=== PATIENT | female | born 1945 | race African-American/Black ===

== ENCOUNTER 2017-06-24 14:54 | Emergency (ER) | payer MEDICARE, MEDICAID ==
[2017-06-24 15:24] LABS: Hemoglobin 12.8 g/dL (12.0-16.0); Mean Corpuscular HGB CONC 32.7 g/dL (32.0-36.0); Mean Corpuscular Hemoglobin 31.3 pg (27.0-31.0); Mean Corpuscular Volume 95.6 fl (81.0-99.0); Mean Platelet Volume 7.5 fL (7.4-10.4); Platelet Count 254 thou/uL (130-400); RBC Distribution Width 14.7 % (11.5-14.5); Red Blood Cell (RBC) Count 4.09 mill/uL (4.20-5.40); White Blood Cell (WBC) Count 6.3 thou/uL (4.8-10.8)
--- NOTE | 2017-06-24 15:29 | RAD ---
CHEST 1 VIEW: Date: 06/24/17 HISTORY: 72-year-old female with chest pain. COMPARISON: 01/27/15. FINDINGS: Monitor leads overlie the chest. Small bilateral cervical ribs. Atherosclerosis of aorta with ectasia . Mild hyperinflation. IMPRESSION: Postop midline sternotomy. Hyperinflation changes bilaterally. Stable chronic lung changes. Atheroscl erosis of aorta with ectasia. POS: [facility]
[2017-06-24 15:45] LABS: ALT (SGPT) Less than 7 U/L (8-55); AST (SGOT) 10 U/L (5-34); Albumin 3.8 g/dL (3.4-4.8); Alkaline Phosphatase 99 U/L (40-150); Anion Gap 13 mmol/L (10-20); BUN (Urea Nitrogen) 18 mg/dL (9.8-20.1); Bilirubin, Total 0.3 mg/dL (0.2-1.2); CK (CPK) 76 U/L (29-168); Calc. Creatinine Clearance 0 mL/min (70-130); Calcium 9.4 mg/dL (7.8-10.44); Carbon Dioxide 24 mmol/L (23-31); Chloride 104 mmol/L (98-107); Estimated GFR-MDRD 84; Globulin 3.2 g/dL (2.4-3.5); Glucose 114 mg/dL (83-110); Potassium 3.4 mmol/L (3.5-5.1); Sodium 138 mmol/L (136-145)
[2017-06-24 15:51] LABS: CKMB 0.5 ng/mL (0-6.6); Troponin I Less than 0.010 ng/mL (< 0.028)
[2017-06-24 15:58] LABS: Anisocytosis SLIGHT = 6-15 cells (100X) (0-5/hpf); Lymphocytes 9 % (21-51); MDiff Complete? YES; Monocytes 3 % (0-10); Neutrophil 88 % (42-75); PLT Morphology Comment Appears Adequate
[2017-06-24 16:01] LABS: PTT 27.1 SEC (22.9-36.1); Prothrombin Time 13.3 SEC (12.0-14.7)
[2017-06-24] MEDS ORDERED: Nitroglycerin 2% Ointment 1 INCH/1 GM Packet ONE (16:02)
[2017-06-24] MEDS ORDERED: cloNIDine 0.1 MG TAB ONE (18:10)
[2017-06-24 19:10] LABS: Bilirubin Negative (Negative); Blood, Urine Moderate (Negative); Clarity CLEAR (Clear); Glucose, Urine (Dipstick) Negative (Negative); Leukocyte Small (Negative); Nitrite Negative (Negative); Protein, Urine (Dipstick) Trace mg/dL (Neg-Trace); Specific Gravity, Urine 1.012 (1.002-1.036); Urobilinogen 0.2 mg/dL (0.2-1.0); pH, Urine 6.5 (5.0-9.0)
[2017-06-24 19:12] LABS: Bacteria/HPF Rare-Few HPF (None Seen); Hyaline Casts/LPF 0-3 HYALINE CAST LPF (0-3 Hyaline); Pathc Cast-AUWi Flag 0.27 (0-2.49); RBC/HPF 21-50 HPF (0-3); Squamous Epithelial 0-3 HPF (0-3); WBC/HPF 21-50 HPF (0-3)
--- NOTE | 2017-07-26 15:56 | EKG ---
Test Reason : Blood Pressure : / mmHG Vent. Rate : 075 BPM Atrial Rate : 075 BPM P-R Int : 116 ms QRS Dur : 098 ms QT Int : 406 ms P-R-T Axes : 017 024 121 degrees QTc Int : 453 ms Sinus rhythm with Premature atrial complexes in a pattern of bigeminy Abnormal ECG Confirmed by SAMMIE JOSEPH, HYACINTH ([id number]), image editor NO TALBOT ([id number]) on 07/26/2017 3:55:42 PM Referred By: Confirmed By:HYACINTH COCHRAN MD
== END 2017-06-24 20:14 | disposition home or self-care (01) ==
LOC: ERS 14:54
DX: R07.89 Other chest pain (principal); I11.0 Hypertensive heart disease with heart failure; I50.9 Heart failure, unspecified; E78.5 Hyperlipidemia, unspecified; J45.909 Unspecified asthma, uncomplicated; F31.9 Bipolar disorder, unspecified; F41.9 Anxiety disorder, unspecified; F20.9 Schizophrenia, unspecified; F17.210 Nicotine dependence, cigarettes, uncomplicated; Z86.73 Personal history of transient ischemic attack (TIA), and cerebral infarction without residual deficits; Z71.6 Tobacco abuse counseling
CPT/HCPCS: 36415; 71045; 80053; 81003; 81015; 82553; 84484; 85025; 85610; 85730; 93005; 94760; 99406

== ENCOUNTER 2017-07-14 13:27 | Outpatient (CLI) | payer MEDICARE, MEDICAID | END 2017-07-14 13:28 | disposition home or self-care (01) | LOC: BICULT 13:27 | PROVIDERS: ATTEND Family Medicine | DX: R94.6 Abnormal results of thyroid function studies (principal); E04.2 Nontoxic multinodular goiter | CPT/HCPCS: 76536 ==

== ENCOUNTER 2017-07-25 13:54 | Outpatient (CLI) | payer MEDICARE, OTHER | END 2017-07-25 13:55 | disposition home or self-care (01) | LOC: BICMAMMO 13:54 | PROVIDERS: ATTEND Family Medicine | DX: Z80.3 Family history of malignant neoplasm of breast; Z12.31 Encounter for screening mammogram for malignant neoplasm of breast | CPT/HCPCS: 77063; 77067 ==

== ENCOUNTER 2017-08-22 06:48 | Outpatient (CLI) | payer MEDICARE, MEDICAID ==
--- NOTE | 2017-08-22 10:23 | ULT ---
PELVIC ULTRASOUND: HISTORY: Weight loss. Blood in stool and urine. Constipation. COMPARISON: None. FINDINGS: Normal reproductive structures are not appreciated in the pelvis, which is compatible with the patien t's history of a complete hysterectomy. No obvious masses or fluid. The urinary bladder is unremark able. IMPRESSION: Unremarkable pelvic ultrasound. POS: [facility]
--- NOTE | 2017-08-22 10:23 | ULT ---
ABDOMEN ULTRASOUND COMPLETE: HISTORY: RIGHT lower quadrant pain. COMPARISON: 06/02/15. TECHNIQUE: Utilizing a multihertz transducer, sonographic imaging of the abdomen is performed in the longitudina l and transverse plane. FINDINGS: Limited evaluation of the pancreas. Increased echogenicity of the liver which may be due to hepatic steatosis or hepatocellular disease. Limited evaluation for hepatic masses or intrahepatic biliary dilatation. The right hepatic lobe me asures 11.9 cm. There is atherosclerosis of the abdominal aorta. Suboptimal evaluation of the IVC. The spleen is ob scured. Bilaterally, no hydronephrosis. The left kidney measures 8.8 x 5.4 x 4.1 cm. The right kidney measu res 3.7 x 3.4 x 9.4 cm. There is a hypoechoic focus which may represent a small possibly complex cys t measuring 1 cm. Evaluation is limited. Contracted gallbladder, limiting evaluation. Grossly, no evidence of cholecystitis. The common bile duct diameter is 0.5 cm. IMPRESSION: Limited evaluation. No hydronephrosis. No definite evidence of cholecystitis. Additional imaging i f clinically warranted. POS: [facility]
== END 2017-08-22 06:49 | disposition home or self-care (01) ==
LOC: SCSULT 06:48
PROVIDERS: ATTEND Family Medicine
DX: R10.31 Right lower quadrant pain (principal)
CPT/HCPCS: 76700; 76856

== ENCOUNTER 2017-08-22 06:50 | Outpatient (CLI) | payer MEDICARE, MEDICAID ==
--- NOTE | 2017-08-22 12:29 | MRI ---
MRI OF BRAIN NONCONTRAST: COMPARISON: 01/26/16 MRI of brain. INDICATION: Upper and lower extremity weakness, right-sided. FINDINGS: There is mild to moderate chronic microvascular ischemic disease involving the cerebral white matter as well as the sarkis. No abnormal ventriculomegaly or evidence of midline shift. There are no signif icant areas of parenchymal hemorrhagic susceptibility. Minimal linear colon artifact of the posterio r left lentiform nucleus may relate to a slight degree of hemosiderin deposition related to remote la cunar infarction. There is no acute territorial infarction. IMPRESSION: 1. No acute intracranial abnormality. 2. Chronic ischemic disease. 3. No intracranial mass effect. POS: [facility]
--- NOTE | 2017-08-22 12:47 | MRI ---
CERVICAL SPINE MRI NONCONTRAST: CLINICAL HISTORY: Weakness of upper and lower extremity, right side. FINDINGS: There is focal reversal of the cervical lordosis centered at the C3-4 level. No significant abnormal ity of the posterior fossa. There is no acute marrow edema. No significant subluxation. No high-gr krunal central canal stenosis at the C1-2 level. There is degenerative hypertrophy of the C1-2 articula tion. C2-3: Left asymmetric disk-osteophyte complex. No high-grade central canal or foraminal stenosis. C3-4: There is broad-based disk-osteophyte with effacement of ventral thecal sac. There is mild ligia tral canal stenosis. Mild to moderate right and mild left neural foraminal narrowing. C4-5: Disk-osteophyte complex results in mild narrowing of the central canal, moderate right and mil d to moderate neural foraminal narrowing. C5-6: There is mild narrowing of the central canal as well as mild bilateral neural foraminal narrow ing. C6-7: Mild narrowing of the central canal on the basis of a broad-based disk-osteophyte. Mild right neural foraminal narrowing. No high-grade left foraminal narrowing. C7-T1: No high-grade central canal or neural foraminal stenosis. There is no significant intrinsic cord signal abnormality or expansile cord lesion. IMPRESSION: There is multilevel degenerative change throughout the cervical spine as outlined above. POS: [facility]
== END 2017-08-22 06:51 | disposition home or self-care (01) ==
LOC: SCSMRI 06:50
PROVIDERS: ATTEND Student in an Organized Health Care Education/Training Program
DX: M54.2 Cervicalgia (principal); M62.81 Muscle weakness (generalized); M79.601 Pain in right arm; M79.604 Pain in right leg; R20.2 Paresthesia of skin; M47.892 Other spondylosis, cervical region; I67.82 Cerebral ischemia
CPT/HCPCS: 70551; 72141; 76700; 76856

== ENCOUNTER 2017-08-28 08:58 | Outpatient (CLI) | payer MEDICARE, MEDICAID ==
[2017-08-28] MEDS ORDERED: ISOVUE-370 76%-LOCM 1 ML ONE (13:51)
== END 2017-08-28 08:59 | disposition home or self-care (01) ==
LOC: BICCT 08:58
PROVIDERS: ATTEND Family Medicine
DX: N28.9 Disorder of kidney and ureter, unspecified (principal); N32.89 Other specified disorders of bladder; R93.5 Abnormal findings on diagnostic imaging of other abdominal regions, including retroperitoneum; N20.0 Calculus of kidney; N28.1 Cyst of kidney, acquired; I71.4 Abdominal aortic aneurysm, without rupture; I71.2 Thoracic aortic aneurysm, without rupture; I74.09 Other arterial embolism and thrombosis of abdominal aorta
CPT/HCPCS: 74178

== ENCOUNTER → 2017-09-12 | Day surgery (SDC) | payer MEDICARE, MEDICAID ==
[2017-09-11 10:36] VITALS: BMI 18.6
[~2017-09-12] MED LIST: Lidocaine 1% PF 5 ML VIAL ONE; Prevnar 13-Val Conj/PF 0.5 ML SYRINGE IM ONE
[2017-09-12 13:05] VITALS: TEMP 97.7
--- NOTE | 2017-09-12 14:03 | ULT ---
SONOGRAPHIC GUIDED FNA LEFT THYROID LOBE MASS: History: Left thyroid mass. FINDINGS: After explaining the procedure and answering all questions, the dominant mass at the inferior pole le ft thyroid lobe was visualized. Sterile technique, buffered local anesthesia, sonographic guidance, a nd a medial approach were used to carefully advance a 25 gauge needle into the heterogeneous mass. Po sition was confirmed sonographically. A total of 4 FNA specimens were obtained and submitted to pathology for evaluation. The patient coy ated the procedure well and was dismissed in good condition. IMPRESSION: Technically successful FNA left thyroid lobe mass. Pathology is pending. POS: [facility]
== END ==
LOC: ULT 11:08
PROVIDERS: ATTEND Internal Medicine Endocrinology, Diabetes & Metabolism
PROC: 0G9G3ZX Drainage of Left Thyroid Gland Lobe, Percutaneous Approach, Diagnostic (ICD-10-PCS; principal; 2017-09-12)
DX: E04.1 Nontoxic single thyroid nodule (principal); Z88.5 Allergy status to narcotic agent; Z88.8 Allergy status to other drugs, medicaments and biological substances
CPT/HCPCS: 10022; 76942; 88173; J2001

== ENCOUNTER 2017-10-15 09:36 | Observation (INO) | payer MEDICARE, MEDICAID ==
[2017-10-15 11:19] LABS: Hemoglobin 12.4 g/dL (12.0-16.0); Mean Corpuscular HGB CONC 32.5 g/dL (32.0-36.0); Mean Corpuscular Hemoglobin 29.6 pg (27.0-31.0); Mean Platelet Volume 7.2 fL (7.4-10.4); Platelet Count 296 thou/uL (130-400); RBC Distribution Width 13.3 % (11.5-14.5); Red Blood Cell (RBC) Count 4.18 mill/uL (4.20-5.40); White Blood Cell (WBC) Count 4.7 thou/uL (4.8-10.8)
[2017-10-15 11:23] LABS: INR-International Normal Ratio 0.9; PTT 25.8 SEC (22.9-36.1); Prothrombin Time 12.6 SEC (12.0-14.7)
[2017-10-15 11:39] LABS: ALT (SGPT) 7 U/L (8-55); AST (SGOT) 24 U/L (5-34); Albumin 4.4 g/dL (3.4-4.8); Alkaline Phosphatase 91 U/L (40-150); Anion Gap 15 mmol/L (10-20); BUN (Urea Nitrogen) 16 mg/dL (9.8-20.1); Bilirubin, Total 0.7 mg/dL (0.2-1.2); CK (CPK) 114 U/L (29-168); Calc. Creatinine Clearance 0 mL/min (70-130); Carbon Dioxide 28 mmol/L (23-31); Chloride 98 mmol/L (98-107); Estimated GFR-MDRD 71; Globulin 3.6 g/dL (2.4-3.5); Glucose 135 mg/dL (83-110); Potassium 4.4 mmol/L (3.5-5.1); Sodium 137 mmol/L (136-145)
[2017-10-15 11:43] LABS: CKMB 0.7 ng/mL (0-6.6); Troponin I 0.011 ng/mL (< 0.028)
[2017-10-15 12:05] LABS: Band 6 % (5-11); Eosinophils 1 % (0-10); Lymphocytes 21 % (21-51); MDiff Complete? YES; Monocytes 6 % (0-10); Neutrophil 63 % (42-75); RBC Morphology Normal; Reactive Lymphocytes 1 % (0-10)
[2017-10-15] MEDS ORDERED: Acetaminophen 325 MG TAB PO PRN (12:25)
[2017-10-15] MEDS ORDERED: Bisacodyl 5 MG TAB PO PRN (12:25)
[2017-10-15] MEDS ORDERED: Ondansetron HCl/PF 4 MG/2 ML Vial IVP PRN (12:25)
[2017-10-15] MEDS ORDERED: Senokot 8.6 MG TAB PO PRN (12:25)
--- NOTE | 2017-10-15 12:52 | HP ---
CHIEF COMPLAINT: Nausea, vomiting for the past 4 days. HISTORY OF PRESENT ILLNESS: This is a 72-year-old female with a past medical history significant for carotid stenosis, hypertension as well as a previous TIA who presents to the hospital due to nausea, vomiting that has been going on for the past 4 days. The patient states that these symptoms have pe rsisted for the past 4 days without any improvement. She tried to see if it would go away at home, b ut it did not, so she decided to come to the hospital for further evaluation and management. She com plains of associated diffuse abdominal pain as well as dark colored stools and hematemesis. Because of the hematemesis and dark colored stool, that prompted her to come in more than anything else. She denies any fevers, chills, cough, dizziness, lightheadedness, or syncopal episode. She also denies any diarrhea or hematochezia. PAST MEDICAL HISTORY: Please see HPI. SOCIAL HISTORY: The patient denies any tobacco, recreational drug use or alcohol use. FAMILY HISTORY: Family history was significant for cardiovascular disease as well as hypertension. PAST SURGICAL HISTORY: Significant for CABG, hysterectomy as well as tonsillectomy. REVIEW OF SYSTEMS: A 14-point review of systems was reviewed and was negative other than what was me ntioned in the HPI. PHYSICAL EXAMINATION: VITAL SIGNS: Blood pressure was 137/85, pulse was 105, respiratory rate was 16, temperature was 98.4 . The patient was satting 98% oxygen on room air. GENERAL: The patient was in no apparent distress, was resting comfortably in the bed, alert, awake, oriented x3. HEAD: Head is normocephalic, atraumatic. EYES: Pupils are round and reactive to light. Extraocular muscles were intact. Conjunctivae are pi nk. Sclerae was nonicteric. MOUTH: Oral mucosa is pink, slightly dry. NECK: Soft, supple, no JVD, no carotid bruits, no lymphadenopathy. CARDIOVASCULAR: Regular rhythm, slightly tachycardic. S1 and S2 sounds are heard. I could not appr eciate S3 or S4. RESPIRATORY: Clear lungs bilaterally. No added sounds. ABDOMEN: Positive bowel sounds, soft, mild tenderness diffusely with no guarding or rebound EXTREMITIES: Lower extremity pulses were 2+ both dorsalis and radial pulse. No pitting edema could be appreciated. LABORATORY DATA: White blood cell count was 4.7, hemoglobin was 12.4, hematocrit was 30.1, platelet count was 296. Sodium was 137, potassium 4.4, chloride 98, bicarbonate 28, BUN was 16, creatinine wa s 0.94, glucose is 135. ASSESSMENT AND PLAN: 1. Nausea and vomiting with apparent melena and hematemesis. 2. Coronary artery disease status post coronary artery bypass graft. 3. Hypertension. 4. Carotid stenosis. 5. Hypertension. 6. We will admit to observation. I will consult GI to evaluate to see if patient needs an EGD due to her symptoms as she is complainin g of at this time. A Hemoccult was done in the ER which was negative. Unclear if patient is actuall y having any GI bleeding at this time; however, will evaluate accordingly and adjust plan based off o f evaluation with GI. We will place the patient on Protonix as well. Supportive care and management . Pain management control and monitor accordingly.
[2017-10-15 13:45] VITALS: BMI 18.1
[2017-10-15] MEDS ORDERED: Metoprolol Tartrate 25 MG TAB PO SCH (14:00)
[2017-10-15] MEDS ORDERED: Amlodipine 5 MG TAB PO SCH (14:00)
[2017-10-15] MEDS ORDERED: cloNIDine 0.1 MG TAB PO SCH (14:00)
[2017-10-15] MEDS: Sodium Chloride 0.9% 1,000 ML IV SCH (14:02)
[2017-10-15] MEDS ORDERED: Pantoprazole 40 MG VIAL IVP SCH ×2 (21:00)
[2017-10-16] MEDS: Sodium Chloride 0.9% 1,000 ML IV SCH (02:25)
[2017-10-16 04:50] LABS: #Eosinphils 0.1 thou/uL (0.0-0.7); #Lymphocytes 1.4 thou/uL (1.20-3.40); #Monocytes 0.3 thou/uL (0.11-0.59); %Eosinophils 2.6 % (0.0-10.0); %Lymphocytes 36.1 % (21.0-51.0); %Monocytes 8.1 % (0.0-10.0); %Neutrophils 52.2 % (42.0-75.0); Hemoglobin 10.6 g/dL (12.0-16.0); Mean Corpuscular HGB CONC 33.3 g/dL (32.0-36.0); Mean Corpuscular Volume 90.2 fl (81.0-99.0); Platelet Count 227 thou/uL (130-400); RBC Distribution Width 13.3 % (11.5-14.5); Red Blood Cell (RBC) Count 3.53 mill/uL (4.20-5.40); White Blood Cell (WBC) Count 3.7 thou/uL (4.8-10.8)
[2017-10-16 05:01] LABS: Anion Gap 10 mmol/L (10-20); BUN (Urea Nitrogen) 16 mg/dL (9.8-20.1); Calc. Creatinine Clearance 41 mL/min (70-130); Calcium 8.8 mg/dL (7.8-10.44); Carbon Dioxide 26 mmol/L (23-31); Chloride 106 mmol/L (98-107); Estimated GFR-MDRD 87; Glucose 88 mg/dL (83-110); Potassium 3.5 mmol/L (3.5-5.1); Sodium 138 mmol/L (136-145)
--- NOTE | 2017-10-16 09:08 | CON ---
DATE OF CONSULTATION: 10/15/2017 REASON FOR CONSULTATION: Possible history of vomiting and possible coffee-ground emesis. HISTORY OF PRESENT ILLNESS: Ms. Barrera is a pleasant 72-year-old female who was admitted to the hosp ital today after she presented to the emergency room with complaints of nausea, vomiting, and loose s tools for about a month. She has had minimal appetite and often when she eats, things just come back up. She reports her stools on and off has been black and intermittently she will vomit up or bring up material from mouth that is black as tar. She also has had some vaginal bleeding. She has been d iagnosed with a bladder tumor on CAT scan, apparently scheduled for some type of surgery on 8. She notes that she has no dysphagia or odynophagia. She also estimates she has lost about 20 pham nds in the past couple of months. She denies any dysphagia or odynophagia, takes aspirin, but she de nies taking other NSAIDs. REVIEW OF SYSTEMS: She does have some occasional chest pain for which she will take nitroglycerin. She has no headache, shortness of breath, abdominal pain, rectal pain or pelvic pain. She denies santana quency, urgency or dysuria. PAST MEDICAL HISTORY: Prior CVA in 2017 with some slight right-sided defects, past history of CHF, h yperlipidemia, coronary artery disease, bypass grafting in [place] many years ago. She denies any history of ulcers in the past, diagnosed with atrial fibrillation in the past, bladder cancer diagnos ed this year, diabetes, and COPD. PAST SURGICAL HISTORY: Coronary artery bypass grafting in 2005 in [place], hysterectomy, tonsillec apu. She denies any prior colonoscopies. Carotid endarterectomy secondary to recurrent TIAs and ca rotid stenosis. SOCIAL HISTORY: Lives with her here. She drinks alcohol fairly regularly. She smokes half a pack of cigarettes a day. MEDICATIONS: Amlodipine, aspirin, famotidine, metoprolol, nitroglycerin, Combivent, Plavix, Crestor, iron, Tylenol with Codeine, and potassium. PRESENT MEDICATIONS HERE: Tylenol, Zofran, Catapres, Lopressor, Protonix 40 IV q.12 hours, Senna, an d normal saline 75. PHYSICAL EXAMINATION: GENERAL: Patient is resting comfortably in bed. She is in no distress. VITAL SIGNS: Pulse 66-108, temperature 97, respirations 18, blood pressure 118/97. LUNGS: Clear. HEART: Regular rate and rhythm without clicks or murmurs. ABDOMEN: Soft, nontender, without hepatomegaly. RECTAL: Reveals nothing in her vault. LABORATORY DATA: White count 4.7, hemoglobin 12.4, platelet count 296. INR 0.9. Sodium 137, potass ium 4.4, BUN and creatinine are 16 and 0.9, bilirubin is 0.7, AST and ALT are 24 and 7, alkaline phos phatase 91, albumin 4.4. ASSESSMENT: This is a 72-year-old female who has been diagnosed with bladder cancer, has had quite a bit of blood in her urine at times, describes some vaginal bleeding at times, apparently scheduled f or bladder surgery on 10/20/2017. She is admitted now with complaints of nausea, anorexia, weight lo ss, vomiting or bringing up black tarry material at times. She also reports black tarry stools at ti mes. She is on iron however. Stool occult blood in the emergency room today was negative. Presentl y, she has been started on PPI. Differential diagnoses include nausea and vomiting related to her malignancy. 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 Brain MRI in 08/2017, chronic ischemia. Recently had an ultrasound-guided biopsy of her thyroid too and ap parently was benign. PLAN: IV, PPIs, EGD tomorrow.
--- NOTE | 2017-10-16 13:14 | OP ---
DATE OF PROCEDURE: 10/16/2017 PROCEDURE: Esophagogastroduodenoscopy with biopsy. INDICATION FOR PROCEDURE: Hematemesis, melena. DESCRIPTION OF PROCEDURE: After the risks and benefits of this procedure were explained to the patie nt and the patient's surrogate including risks of bleeding, infection, perforation, reaction to anest hesia and/or pain, informed consent was obtained. The patient was then taken to the endoscopy suite where deep sedation was administered via propofol and anesthesia support. Once adequate sedation was achieved, the standard gastroscope was then introduced into the mouth with intubation of the esophag us, stomach and proximal small intestine with the findings listed below. The patient tolerated the p rocedure well with no immediate perioperative complications. FINDINGS: Esophagus: Normal appearing mucosa was seen in the proximal and mid esophagus. A partial fibrous ri ng was seen at the GE junction at approximately 38 cm past the incisors that was easily traversed wit h the standard gastroscope. This partial ring was not intervened upon given lack of symptoms of dysp hagia. Otherwise, there was no evidence of erosions, ulcerations, mass, lesions, or active/recent bl eeding. Stomach: Normal-appearing mucosa was seen in the gastric cardia, fundus, body, greater curvature, an trum and incisura. There was no evidence of erosions, ulcerations, mass, lesions or active/recent bl eeding. Duodenum: Upon entry into the duodenal bulb, there were 5-6 duodenal nodules with surrounding erythe ma measuring approximately 3-7 mm in size. They did not have any associated erosions or ulcerations or active/recent bleeding seen in this portion of the examination. Multiple biopsies were taken of t hese nodules for evaluation and placed in specimen jar for pathology review. Otherwise, the second p ortion of the duodenum was normal without any evidence of erosions, ulcerations, or active/recent ble eding. IMPRESSION: 1. Mild nodular duodenitis, status post biopsies. 2. Nonobstructive ring seen at approximately 39 cm easily traversed with the standard gastroscope, n ot intervened upon during this examination. RECOMMENDATIONS: 1. Follow up with primary inpatient team. 2. Continue to monitor clinically for signs of active gastrointestinal bleeding. 3. We will continue to trend H&H and transfuse as necessary to maintain an H&H of 7/21. 4. We would pursue other non-GI sources of anemia. 5. We will follow up on the biopsy results with further management by those results. 6. We would continue pantoprazole 40 mg twice daily for the next 72 hours, then decrease to 40 mg da jerome. We will continue to follow. Please call with any questions.
[2017-10-16 13:36] VITALS: TEMP 98.5
[2017-10-16 14:09] VITALS: BP 174/85
[2017-10-16] MEDS ORDERED: PROPOFOL 200 MG/20 ML VIAL ONE (14:54)
--- NOTE | 2017-10-16 15:05 | DIS ---
DATE OF ADMISSION: 10/15/2017 DATE OF DISCHARGE: 10/16/2017 PRIMARY CARE PHYSICIAN: [facility], but she could recall the name. UROLOGIST: She believes Dr. Johnston. GASTROENTEROLOGY: Dr. Camacho and Dr. Casas. DISCHARGE DIAGNOSES: 1. Nodular duodenitis, no active bleeding. 2. Chronic anemia, likely chronic iron deficiency from a genitourinary source. 3. Bladder tumor. 4. Nausea and vomiting on admission, now resolved. 5. Black stools, likely iron laden. 6. Carotid stenosis. 7. Hypertension, essential. 8. History of transient ischemic attacks. CONSULTATIONS: Gastroenterology, Dr. Angelo Camacho, 10/15/2017. PROCEDURE: EGD, 10/16/2017, by Dr. Silvino Casas showing mild nodular duodenitis, status post biopsie s and nonobstructing ring at approximately 39 cm easily traversed with a standard gastroscope. HISTORY AND PHYSICAL: Ms. Barrera is a 72-year-old female who presented to the emerg ency department the day of admission complaining of a black vomitus and black stools. Workup in the ER showed normal hemoglobin of 12.4, platelet count 296. We were called for admission. HOSPITAL COURSE: The patient was seen by Dr. Roberts and placed in observation. Hemoccult in the ER was negative, GI was consulted and they did a Hemoccult also that was negative. There is no evidence of GI bleeding and brown stool. The patient was watched overnight and today underwent EGD. It show ed some nodular duodenitis, but no active bleeding. Dr. Casas recommended b.i.d. PPI for 3 days, the n daily. He noted no GI source of bleeding. Her hemoglobin after rehydration was 10.6 remained stab le. She had no further nausea, vomiting, black stools or hematemesis and was stable for discharge outpatient followup. DISCHARGE CONDITION: Stable. DISPOSITION: Will be discharged home via private vehicle. DISCHARGE ACTIVITY: As tolerated. DISCHARGE DIET: Heart healthy recommended. FOLLOWUP APPOINTMENTS: 1. Primary care physician within a week. 2. Urology or ICING MACHINE OPERATOR as previously scheduled. 3. Dr. Casas in 2 weeks.
== END 2017-10-16 15:16 | disposition home or self-care (01) ==
LOC: ERS 09:36 → 2SW 12:51
PROVIDERS: ADMIT Internal Medicine; ATTEND Internal Medicine
PROC: 0DB98ZX Excision of Duodenum, Via Natural or Artificial Opening Endoscopic, Diagnostic (ICD-10-PCS; principal; 2017-10-15)
DX: K31.89 Other diseases of stomach and duodenum (principal); K29.80 Duodenitis without bleeding; C67.9 Malignant neoplasm of bladder, unspecified; K92.0 Hematemesis; K92.1 Melena; K22.2 Esophageal obstruction; E78.5 Hyperlipidemia, unspecified; I25.10 Atherosclerotic heart disease of native coronary artery without angina pectoris; I48.91 Unspecified atrial fibrillation; J44.9 Chronic obstructive pulmonary disease, unspecified; I50.9 Heart failure, unspecified; I65.29 Occlusion and stenosis of unspecified carotid artery; D53.9 Nutritional anemia, unspecified; F17.210 Nicotine dependence, cigarettes, uncomplicated; Z88.5 Allergy status to narcotic agent; Z88.8 Allergy status to other drugs, medicaments and biological substances; Z86.73 Personal history of transient ischemic attack (TIA), and cerebral infarction without residual deficits; Z79.82 Long term (current) use of aspirin; Z79.899 Other long term (current) drug therapy; Z95.1 Presence of aortocoronary bypass graft; Z79.02 Long term (current) use of antithrombotics/antiplatelets
CPT/HCPCS: 43239; 80048; 80053; 82274; 82550; 82553; 84484; 85025 ×2; 85610; 85730; 86850; 86900; 86901; 88305; 93005; 96361 ×2; 96374; 96376; 99285; G0378; 36415; A4216; C9113; J2704

== ENCOUNTER 2017-10-24 13:53 | Outpatient (CLI) | payer MEDICARE, MEDICAID ==
[2017-10-24 14:41] LABS: Bilirubin Negative (Negative); Blood, Urine Large (Negative); Clarity CLOUDY (Clear); Glucose, Urine (Dipstick) Negative (Negative); Leukocyte Small (Negative); Nitrite Negative (Negative); Protein, Urine (Dipstick) 300 mg/dL (Neg-Trace); Specific Gravity, Urine 1.017 (1.002-1.036); pH, Urine 6.5 (5.0-9.0)
[2017-10-24 14:44] LABS: Bacteria/HPF 1+ HPF (None Seen); Hyaline Casts/LPF 0-3 HYALINE CAST LPF (0-3 Hyaline); Squamous Epithelial 0-3 HPF (0-3); WBC/HPF 0-3 HPF (0-3)
[2017-10-24 14:45] LABS: Renal Epithelial None Seen HPF (0-3); Transitional Epithelial NONE SEEN HPF (0-3)
== END 2017-10-24 13:54 | disposition home or self-care (01) ==
LOC: LABBT 13:53
PROVIDERS: ATTEND Urology
DX: Z01.812 Encounter for preprocedural laboratory examination (principal); C67.9 Malignant neoplasm of bladder, unspecified
CPT/HCPCS: 81001; 86850; 86900; 86901; 87086

== ENCOUNTER 2017-10-30 18:31 | Emergency (ER) | payer MEDICARE, MEDICAID ==
[2017-10-30] MEDS ORDERED: diphenhydrAMINE 50 MG/ML VIAL ONE (18:59)
[2017-10-30] MEDS ORDERED: Metoclopramide HCl 10 MG/2 ML VIAL ONE (18:59)
[2017-10-30 19:02] LABS: #Basophils 0.1 thou/uL (0.0-0.2); #Eosinphils 0.1 thou/uL (0.0-0.7); #Lymphocytes 2.5 thou/uL (1.20-3.40); #Monocytes 0.4 thou/uL (0.11-0.59); #Neutrophils 3.1 thou/uL (1.40-6.50); %Basophils 1.7 % (0.0-1.0); %Eosinophils 1.3 % (0.0-10.0); %Lymphocytes 40.3 % (21.0-51.0); %Monocytes 6.4 % (0.0-10.0); %Neutrophils 50.4 % (42.0-75.0); Mean Corpuscular HGB CONC 33.5 g/dL (32.0-36.0); Mean Corpuscular Volume 89.7 fl (81.0-99.0); Mean Platelet Volume 6.8 fL (7.4-10.4); Platelet Count 363 thou/uL (130-400); RBC Distribution Width 13.5 % (11.5-14.5); Red Blood Cell (RBC) Count 3.68 mill/uL (4.20-5.40); White Blood Cell (WBC) Count 6.2 thou/uL (4.8-10.8)
[2017-10-30 19:18] LABS: ALT (SGPT) 8 U/L (8-55); AST (SGOT) 23 U/L (5-34); Albumin 4.2 g/dL (3.4-4.8); Alcohol 257 mg/dL (Less than 10); Alkaline Phosphatase 74 U/L (40-150); Anion Gap 16 mmol/L (10-20); BUN (Urea Nitrogen) 25 mg/dL (9.8-20.1); Bilirubin, Total 0.2 mg/dL (0.2-1.2); Calc. Creatinine Clearance 0 mL/min (70-130); Calcium 9.2 mg/dL (7.8-10.44); Carbon Dioxide 25 mmol/L (23-31); Chloride 107 mmol/L (98-107); Estimated GFR-MDRD 61; Globulin 3.1 g/dL (2.4-3.5); Glucose 72 mg/dL (83-110); Protein, Total 7.3 g/dL (6.0-8.3); Sodium 144 mmol/L (136-145)
--- NOTE | 2017-10-30 19:57 | CT ---
CT HEAD WITHOUT CONTRAST: 10/30/17 Multiple axial tomograms obtained through the head without IV enhancement. INDICATIONS: Headache. Ventricles are of normal size and position. Mild to moderate chronic ischemic white matter changes wh ich were described on prior MRI exam from 08/22/17. No acute mass, hemorrhage or infarct identified. IMPRESSION: No acute findings. POS: [facility]
== END 2017-10-30 21:35 | disposition home or self-care (01) ==
LOC: ERS 18:31
DX: G44.209 Tension-type headache, unspecified, not intractable (principal); F10.129 Alcohol abuse with intoxication, unspecified; E78.5 Hyperlipidemia, unspecified; I10 Essential (primary) hypertension; I50.9 Heart failure, unspecified; J45.909 Unspecified asthma, uncomplicated; E11.9 Type 2 diabetes mellitus without complications; F31.9 Bipolar disorder, unspecified; F41.9 Anxiety disorder, unspecified; F17.210 Nicotine dependence, cigarettes, uncomplicated; Z79.82 Long term (current) use of aspirin; Z79.899 Other long term (current) drug therapy
CPT/HCPCS: 70450; 80053; 80307; 85025; 96365; 96366; 96375; J1200; J2765

== ENCOUNTER 2018-01-21 16:38 | Outpatient (CLI) | payer MEDICARE, MEDICAID ==
[2018-01-21 18:19] LABS: #Basophils 0.1 thou/uL (0.0-0.2); #Eosinphils 0.1 thou/uL (0.0-0.7); #Lymphocytes 2.4 thou/uL (1.20-3.40); #Monocytes 0.3 thou/uL (0.11-0.59); #Neutrophils 4.1 thou/uL (1.40-6.50); %Basophils 1.4 % (0.0-1.0); %Lymphocytes 33.8 % (21.0-51.0); %Monocytes 4.8 % (0.0-10.0); Hemoglobin 12.3 g/dL (12.0-16.0); Mean Corpuscular HGB CONC 32.5 g/dL (32.0-36.0); Mean Corpuscular Hemoglobin 29.6 pg (27.0-31.0); Mean Corpuscular Volume 90.9 fL (78.0-98.0); Mean Platelet Volume 7.8 fL (7.4-10.4); Platelet Count 293 thou/uL (130-400); RBC Distribution Width 13.4 % (11.5-14.5); Red Blood Cell (RBC) Count 4.14 mill/uL (4.20-5.40)
[2018-01-21 18:20] LABS: Bilirubin Negative (Negative); Blood, Urine Large (Negative); Clarity TURBID (Clear); Glucose, Urine (Dipstick) Negative (Negative); Leukocyte Moderate (Negative); Nitrite Positive (Negative); Protein, Urine (Dipstick) 300 mg/dL (Neg-Trace); Specific Gravity, Urine 1.016 (1.002-1.036); Urobilinogen 0.2 mg/dL (0.2-1.0)
[2018-01-21 18:25] LABS: Bacteria/HPF 2+ HPF (None Seen); Hyaline Casts/LPF 0-3 HYALINE CAST LPF (0-3 Hyaline); PTT 28.8 SEC (22.9-36.1); Pathc Cast-AUWi Flag 0.39 (0-2.49); Prothrombin Time 13.1 SEC (12.0-14.7); RBC/HPF GREATER THAN 50-TNTC HPF (0-3); Squamous Epithelial 0-3 HPF (0-3)
[2018-01-21 19:12] LABS: Anion Gap 16 mmol/L (10-20); BUN (Urea Nitrogen) 21 mg/dL (9.8-20.1); Calc. Creatinine Clearance 0 mL/min (70-130); Calcium 9.8 mg/dL (7.8-10.44); Carbon Dioxide 23 mmol/L (23-31); Chloride 105 mmol/L (98-107); Estimated GFR-MDRD 67; Glucose 133 mg/dL (83-110); Potassium 3.9 mmol/L (3.5-5.1); Sodium 140 mmol/L (136-145)
== END 2018-01-21 16:39 | disposition home or self-care (01) ==
LOC: LABBT 16:38
PROVIDERS: ATTEND Urology
DX: Z01.818 Encounter for other preprocedural examination (principal); C67.3 Malignant neoplasm of anterior wall of bladder
CPT/HCPCS: 80048; 81001; 85025; 85610; 85730; 87086; 93005; 93010

== ENCOUNTER 2018-01-29 09:56 | Inpatient (IN) | payer MEDICARE, MEDICAID ==
[2018-01-29] MEDS ORDERED: Labetalol HCl 100 MG/20 ML VIAL ONE (10:52)
[2018-01-29] MEDS ORDERED: PROPOFOL 200 MG/20 ML VIAL ONE (10:52)
[2018-01-29] MEDS ORDERED: Glycopyrrolate 0.2 MG/ML 5 ML SYRINGE ONE (10:52)
[2018-01-29] MEDS ORDERED: Dexamethasone 20 MG/5 ML VIAL ONE (10:52)
[2018-01-29] MEDS ORDERED: PHENYLEPHRINE-NS 100 MCG/ML 10 ML SYRINGE ONE (10:52)
[2018-01-29] MEDS ORDERED: Ondansetron HCl/PF 4 MG/2 ML Vial ONE (10:52)
[2018-01-29] MEDS ORDERED: Levofloxacin 500 mg/D5W 100 ml Premix Bag ONE (10:54)
[2018-01-29] MEDS ORDERED: Fentanyl 100 MCG/2 ML VIAL ONE ×2 (11:44→14:38)
[2018-01-29] MEDS ORDERED: Iothalamate Meglumine 60% 50 ML VIAL FS ONE (12:08)
[2018-01-29] MEDS ORDERED: Bisacodyl 10 MG SUPP PR PRN (13:48)
[2018-01-29] MEDS ORDERED: Morphine 4 MG/ML VIAL SLOW IVP PRN (13:48)
[2018-01-29] MEDS ORDERED: Acetaminophen 500 MG TAB PO PRN (13:48)
[2018-01-29] MEDS ORDERED: diphenhydrAMINE 25 MG CAP PO PRN (13:48)
[2018-01-29] MEDS ORDERED: Ondansetron HCl/PF 4 MG/2 ML Vial IVP PRN (13:48)
[2018-01-29] MEDS ORDERED: Hyoscyamine Sulfate SL 0.125 mg Tablet SL PRN (13:48)
[2018-01-29] MEDS ORDERED: hydrALAZINE 20 MG/ML VIAL SLOW IVP PRN (13:48)
[2018-01-29] MEDS ORDERED: Mag-Al 1200 mg/1200 mg/30 ML UDCUP PO PRN (13:48)
[2018-01-29] MEDS ORDERED: traMADol HCl 50 MG TAB PO PRN (13:51)
[2018-01-29] MEDS ORDERED: Nitroglycerin 0.4 MG TAB (25 Tab Bottle) SL PRN (13:51)
[2018-01-29 18:10] VITALS: BMI 19.8
--- NOTE | 2018-01-29 18:28 | OP ---
DATE OF PROCEDURE: 01/29/2018 SERVICE: Urology. SURGEON: David Johnston M.D. PREOPERATIVE DIAGNOSIS: Bladder cancer. POSTOPERATIVE DIAGNOSIS: Bladder cancer. PROCEDURE PERFORMED: Transurethral resection of bladder tumor greater than 5 cm. INDICATIONS FOR PROCEDURE: Ms. Barrera is a 73-year-old black female, who presented to me with gross hematuria, bladder pain and incontinence. She underwent cystoscopy, demonstrated multifocal diffuse tumors throughout her bladder. There is an extensive amount of tumor within her bladder and I told h er that more than one surgery may be required to clear this. Her surgery was delayed due to gastroin testinal bleed and cardiac complications that she has finally obtained clearance, is now coming in fo r surgery with all risks and benefits discussed. DESCRIPTION OF PROCEDURE: After identification of armband and verification of consent, the patient w as brought back to the operating room and she was given general anesthesia with endotracheal intubati on and paralysis. She was then placed in dorsal lithotomy position and prepped and draped in usual s terile fashion. After appropriate timeout, a lubricated 26-Serbian resectoscope sheath was placed wit h obturator into the urethra. The bipolar resectoscope loop was then switched out for the obturator and a full cystoscopy was performed, demonstrating innumerable amount of tumors within the bladder. Initially, the bladder was along the floor and posterior aspect resected, the vast majority of the tu mor along the left lateral wall and bladder neck were resected. Resection was started on the dome an d right side of the bladder, but at this point, the patient has been under anesthesia for almost 2-1/ 2 hours. Visualization was started to become difficult and towards this time, a small perforation wa s made in the bladder. At this point, I felt it was best to stop the case due to the perforation and fatigue of the surgeon as well as time under anesthesia of the patient. I think we will let the per foration heal and bring her back in approximately 4 weeks and repeat the resection. Therefore, hemos tasis was adequately performed during the resection and the final hemostasis was performed with a low flow irrigation throughout the bladder. All bladder tumor chips were evacuated with the Department of Health and Human Services evacu ator. There were no chips within the bladder. Hemostasis appeared very good. Both ureters were luna ntified in orthotopic location unharmed. A 22-Serbian 3-way Núñez catheter was placed into the patien t's bladder and 30 mL of sterile water placed into the balloon. The bladder was gently irrigated and there were no clots and no bleeding. The inflow port of the 3-way was plugged with a catheter plug and the outflow connected to a gravity drainage bag and secured with a StatLock. The patient was the n awakened and taken to PACU for recovery in stable condition. COMPLICATIONS: Small bladder perforation, which will heal on its own with catheterization. ESTIMATED BLOOD LOSS: 30 mL. RETAINED TUBES AND DRAINS: A 22-Serbian 3-way Núñez catheter with no CBI. SPECIMENS: Bladder tumor chips. DISPOSITION: The patient will be kept in the hospital overnight for observation due to her significa nt comorbidities. Assuming her urine is clear and she is feeling okay without any cardiac issues [place]by [place], we will plan to send her home tomorrow and plan for repeat TURBT in 4 weeks after the perfora tion has healed somewhat.
[2018-01-29] MEDS: Docusate 100 MG CAP PO SCH (20:11)
[2018-01-29] MEDS: Amlodipine 5 MG TAB PO SCH (20:12)
[2018-01-29] MEDS: traMADol HCl 50 MG TAB PO PRN (21:27)
[2018-01-30] MEDS: Amlodipine 5 MG TAB PO SCH ×2 (03:29→20:26)
[2018-01-30 04:21] LABS: #Lymphocytes 0.6 thou/uL (1.20-3.40); #Monocytes 0.2 thou/uL (0.11-0.59); #Neutrophils 5.8 thou/uL (1.40-6.50); %Basophils 0.3 % (0.0-1.0); %Eosinophils 0.1 % (0.0-10.0); %Lymphocytes 8.6 % (21.0-51.0); %Monocytes 3.6 % (0.0-10.0); %Neutrophils 87.5 % (42.0-75.0); Hemoglobin 10.4 g/dL (12.0-16.0); Mean Corpuscular HGB CONC 33.8 g/dL (32.0-36.0); Mean Corpuscular Hemoglobin 30.7 pg (27.0-31.0); Mean Corpuscular Volume 90.8 fL (78.0-98.0); Mean Platelet Volume 8.1 fL (7.4-10.4); Platelet Count 218 thou/uL (130-400); RBC Distribution Width 13.3 % (11.5-14.5); Red Blood Cell (RBC) Count 3.41 mill/uL (4.20-5.40); White Blood Cell (WBC) Count 6.7 thou/uL (4.8-10.8)
[2018-01-30 04:44] LABS: Anion Gap 15 mmol/L (10-20); BUN (Urea Nitrogen) 15 mg/dL (9.8-20.1); Calc. Creatinine Clearance 42 mL/min (70-130); Calcium 8.5 mg/dL (7.8-10.44); Carbon Dioxide 19 mmol/L (23-31); Chloride 105 mmol/L (98-107); Estimated GFR-MDRD 80; Glucose 179 mg/dL (83-110); Potassium 4.1 mmol/L (3.5-5.1); Sodium 135 mmol/L (136-145)
[2018-01-30] MEDS ORDERED: Dextrose 5% in Water 1,000 ML IV PRN (08:10)
[2018-01-30] MEDS ORDERED: Insulin Regular 300 UNITS/3 ML VIAL SC PRN (08:10)
[2018-01-30] MEDS ORDERED: Dextrose 50% Abboject 50 ML SYRINGE SLOW IVP PRN (08:10)
[2018-01-30] MEDS ORDERED: Prevnar 13-Val Conj/PF 0.5 ML SYRINGE IM ONE (09:00)
[2018-01-30] MEDS: Ferrous Sulfate 325 MG TAB PO SCH (09:40)
[2018-01-30] MEDS: TROSPIUM 20 MG TABLET PO SCH ×2 (09:40→21:47)
[2018-01-30] MEDS: Rosuvastatin 10 MG TAB PO SCH (09:40)
[2018-01-30] MEDS: Multivitamin W/ Minerals 1 TAB PO SCH (09:40)
[2018-01-30] MEDS: Metoprolol Tartrate 25 MG TAB PO SCH (09:40)
[2018-01-30] MEDS: Docusate 100 MG CAP PO SCH ×2 (09:40→20:26)
[2018-01-30] MEDS: Famotidine 20 MG TAB PO SCH (09:41)
--- NOTE | 2018-01-30 17:11 | PRG ---
DATE OF SERVICE: 01/30/2018 SUBJECTIVE: The patient states she is doing fine. She has not had any abdominal pain or pelvic pain . She has only taken 1 pain pill. She denies any bladder spasms. Her urine was relatively red yest erday, but is now completely clear. She has not gotten up and walked at all today. She is toleratin g a regular diet without any problems. She did have a bladder perforation during surgery. OBJECTIVE: VITAL SIGNS: Temperature 98.4, pulse 80, respirations 20, blood pressure 110/59, saturations 100% on room air. GENERAL: No apparent distress, communicative and alert. CARDIOVASCULAR: Regular rate and rhythm. Normal S1, S2. CHEST: No increased work of breathing, clear anteriorly. ABDOMEN: Soft, nontender, nondistended. Positive bowel sounds. No significant suprapubic tendernes s. There is just mild discomfort. GENITOURINARY: Núñez catheter in place with slow drip CBI with very clear urine. EXTREMITIES: No clubbing, cyanosis or edema. LABORATORY DATA: A full set of labs are in the [facility] system, which I reviewed. Of note, the arnulfo ent's hemoglobin is 10.4 with a creatinine of 0.84. ASSESSMENT AND PLAN: A 73-year-old black female with an extensive bladder cancer which has come back as high grade T1. I actually fairly certain that she probably has muscle invasive disease, but her bladder is extremely thin in an attempt to take muscle. There was a bladder perforation caused she d oes not appear to be having any problems currently and her hematuria seems to be resolving, I would r ecommend that she stay in the hospital at least for today until tomorrow as a full admission due to h er CBI and hematuria. CBI can probably be discontinued tomorrow morning and Dr. Rob will be coveri ng for me for the weekend and can see the patient. If the hematuria is clear and the patient can wal k around without any significant blood in the urine, then I think the patient can be discharged. I genie potter recommend she stay off of her aspirin and Plavix until she has had 3 consecutive days of clear u rine with no blood. At that point, she may restart her anti-platelets and we will keep her catheter in. She will need to be discharged with a catheter for approximately 4 weeks. We will then get a cy stogram prior to her followup appointment and if there is no evidence of extravasation, we will sched ule her for a second TURBT to remove the remaining tumor which has not yet been removed. I will turn the case over to Dr. Rob over the weekend and will sign out to him.
[2018-01-30] MEDS: traMADol HCl 50 MG TAB PO PRN ×2 (19:15→23:33)
[2018-01-31] MEDS: Docusate 100 MG CAP PO SCH ×2 (09:52→20:51)
[2018-01-31] MEDS: Multivitamin W/ Minerals 1 TAB PO SCH (09:53)
[2018-01-31] MEDS: Metoprolol Tartrate 25 MG TAB PO SCH (09:53)
[2018-01-31] MEDS: Famotidine 20 MG TAB PO SCH (09:53)
[2018-01-31] MEDS: TROSPIUM 20 MG TABLET PO SCH ×2 (09:53→20:51)
[2018-01-31] MEDS: Rosuvastatin 10 MG TAB PO SCH (09:53)
[2018-01-31] MEDS: Ferrous Sulfate 325 MG TAB PO SCH (09:53)
--- NOTE | 2018-01-31 13:05 | PRG ---
DATE OF SERVICE: 01/31/2018 DATE OF HOSPITAL ADMISSION: 01/29/2018 BRIEF HISTORY: Ms. Veronika Barrera is a very pleasant 73-year-old -Russian female with a long-term history of smoking and concurrent history of smoking, who underwent a transurethral resecti on of bladder tumor, greater than 5 cm, by Dr. David Johnston on 01/29/2018. Subsequent to the proced ure, the patient has had hematuria and has been kept in the hospital on observation and has been on c ontinuous bladder irrigation overnight. The patient had her bladder irrigation discontinued earlier this morning and re-developed gross hematuria. We ran some irrigation on her after that and her urin e appears clear. We are turning that off for the day today. PHYSICAL EXAMINATION: GENERAL: This is a pleasant elderly -Russian female in no apparent distress. HEAD, EYES, EARS, NOSE, AND THROAT: Extraocular movements are intact. Sclerae are anicteric. Oroph arynx is clear. NECK: Supple. LUNGS: Clear to auscultation bilaterally. CHEST: There is a well-healed median sternotomy scar. CARDIAC: There is regular rate and rhythm without murmur, rub, or gallop. ABDOMEN: Soft and nontender. There is no suprapubic fullness. Indwelling Núñez catheter is in plac e, and after CBI has been run again during the morning, the urine is mostly clear. EXTREMITIES: Appear within normal limits. LABORATORY STUDIES: The patient has not had any laboratories performed since 01/30/2018. I's and O's are really relatively difficult to calculate given the continuous bladder irrigation. It appears the patient may be making some urine on the order of about 2 liters per day. ASSESSMENT AND PLAN: 1. Gross hematuria, improving on continuous bladder irrigation, now titrated to off. 2. Bladder cancer, status post transurethral resection by Dr. Johnston. Patient will follow up with Dr. Johnston. 3. Disposition: The patient possibly could be ready to go home tomorrow if there is no significant gross bleeding with the continuous bladder irrigation off tonight. Over 35 minutes of consultation assessment time was spent in evaluation and assessment of this patien t today.
[2018-01-31] MEDS: Amlodipine 5 MG TAB PO SCH (20:51)
[2018-02-01 07:05] VITALS: BP 160/72; TEMP 98
[2018-02-01] MEDS: Ferrous Sulfate 325 MG TAB PO SCH (08:21)
[2018-02-01] MEDS: Famotidine 20 MG TAB PO SCH (08:21)
[2018-02-01] MEDS: Docusate 100 MG CAP PO SCH (08:21)
[2018-02-01] MEDS: Multivitamin W/ Minerals 1 TAB PO SCH (08:22)
[2018-02-01] MEDS: Rosuvastatin 10 MG TAB PO SCH (08:22)
[2018-02-01] MEDS: Metoprolol Tartrate 25 MG TAB PO SCH (08:22)
[2018-02-01] MEDS: TROSPIUM 20 MG TABLET PO SCH (08:22)
--- NOTE | 2018-02-01 13:17 | DIS ---
DATE OF ADMISSION: 01/30/2018 DATE OF DISCHARGE: 02/01/2018 ADMISSION DIAGNOSIS: Bladder cancer. DISCHARGE DIAGNOSIS: Bladder cancer, high grade with lamina propria invasion. OPERATIVE PROCEDURES PERFORMED DURING HOSPITALIZATION: Transurethral resection of bladder tumor grea ter than 5 cm. SURGEON: Dr. David Johnston. BRIEF HISTORY OF HOSPITALIZATION: Patient was admitted on 01/29/2018, underwent transurethral resect ion of bladder tumor greater than 5 cm. The patient has a significant history of past and concurrent cigarette smoking. The patient has COPD and multiple other medical issues in addition to bladder ca ncer. The patient underwent delay in her surgery due to cardiac complications after a gastrointestin al bleed and was finally able to obtain clearance and came in on 01/29/2018 for surgery. She underwe nt transurethral resection of bladder tumor as a staged procedure. The patient had transurethral res ection of multiple bladder tumor lesions, some of which were found to invade into the lamina propria. No actual muscularis depths specimens were obtained. The patient did have what appeared to be a sm all perforation and due to this, her procedure was terminated and she was placed on catheter drainage . She was placed briefly on continuous bladder irrigation for a short period of time and then subseq uently tolerated. No bladder irrigation for 24 hours and was discharged home in good condition on afternoon of 02/01/2018. DISCHARGE MEDICATIONS: Please see the discharge medication list in summary. FOLLOW INSTRUCTIONS: The patient will follow up with Dr. David Johnston in 1-2 weeks to schedule a fo llowup secondary procedure on her bladder. DISCHARGE PLANS: The patient is discharged home with an indwelling Núñez catheter in place with a le g bag and bedside bag.
== END 2018-02-01 13:55 | disposition home or self-care (01) | DRG 669 ==
LOC: SDC 09:56 → 2SW 17:38 → OBSVTOIN 01-30 08:49 → SURG A 01-30 16:42
PROVIDERS: ADMIT Urology; ATTEND Urology
PROC: 0TBB8ZZ Excision of Bladder, Via Natural or Artificial Opening Endoscopic (ICD-10-PCS; principal; 2018-01-29)
DX: C67.8 Malignant neoplasm of overlapping sites of bladder (principal); N99.71 Accidental puncture and laceration of a genitourinary system organ or structure during a genitourinary system procedure; R31.0 Gross hematuria; I25.10 Atherosclerotic heart disease of native coronary artery without angina pectoris; J44.9 Chronic obstructive pulmonary disease, unspecified; I10 Essential (primary) hypertension; Z95.1 Presence of aortocoronary bypass graft; Z86.73 Personal history of transient ischemic attack (TIA), and cerebral infarction without residual deficits; Z87.19 Personal history of other diseases of the digestive system; Y83.8 Other surgical procedures as the cause of abnormal reaction of the patient, or of later complication, without mention of misadventure at the time of the procedure
CPT/HCPCS: 36415; 80048; 85025; 88307; 94640; 96374; J1100; J1956; J2405; J2704; J3010; J7620; Q9961

== ENCOUNTER 2018-03-09 10:16 | Outpatient (CLI) | payer MEDICARE, MEDICAID ==
[2018-03-09] MEDS ORDERED: ISOVUE-370 76%-LOCM 1 ML ONE (13:38)
--- NOTE | 2018-03-09 14:04 | RAD ---
CYSTOGRAM: HISTORY: Hematuria. Bladder pain. Indwelling Núñez catheter. FINDINGS: Approximately 100 cc of contrast was instilled into the urinary bladder via the indwelling Núñez cath eter. Immediately, a filling defect in the left side of the urinary bladder, estimated at 2 cm, was seen. There is no evidence of bladder leak. There is also irregularity of the anterior bladder wall . No vesicoureteral reflux. Fluoro time 1.6 minutes. IMPRESSION: Left anterior bladder wall mass consistent with that described on CT from 08/28/2017. No evidence of bladder leak or vesicoureteral reflux. POS: [facility]
== END 2018-03-09 10:17 | disposition home or self-care (01) ==
LOC: RAD 10:16
PROVIDERS: ATTEND Urology
DX: R31.0 Gross hematuria (principal); N32.89 Other specified disorders of bladder
CPT/HCPCS: 51600; 74430

== ENCOUNTER 2018-03-11 14:55 | Outpatient (CLI) | payer MEDICARE, MEDICAID ==
[2018-03-11 16:28] LABS: #Eosinphils 0.2 thou/uL (0.0-0.7); #Lymphocytes 2.3 thou/uL (1.20-3.40); #Monocytes 0.5 thou/uL (0.11-0.59); #Neutrophils 3.8 thou/uL (1.40-6.50); %Basophils 0.4 % (0.0-1.0); %Eosinophils 3.1 % (0.0-10.0); %Lymphocytes 33.2 % (21.0-51.0); %Monocytes 7.2 % (0.0-10.0); %Neutrophils 56.1 % (42.0-75.0); Hemoglobin 11.1 g/dL (12.0-16.0); Mean Corpuscular HGB CONC 31.5 g/dL (32.0-36.0); Mean Corpuscular Hemoglobin 27.8 pg (27.0-31.0); Mean Corpuscular Volume 88.2 fL (78.0-98.0); Mean Platelet Volume 7.2 fL (7.4-10.4); Platelet Count 377 thou/uL (130-400); RBC Distribution Width 13.5 % (11.5-14.5); White Blood Cell (WBC) Count 6.8 thou/uL (4.8-10.8)
[2018-03-11 16:35] LABS: PTT 30.8 SEC (22.9-36.1); Prothrombin Time 13.5 SEC (12.0-14.7)
[2018-03-11 16:45] LABS: Anion Gap 12 mmol/L (10-20); BUN (Urea Nitrogen) 10 mg/dL (9.8-20.1); Calc. Creatinine Clearance 0 mL/min (70-130); Calcium 9.6 mg/dL (7.8-10.44); Carbon Dioxide 23 mmol/L (23-31); Chloride 105 mmol/L (98-107); Estimated GFR-MDRD 79; Glucose 94 mg/dL (83-110); Potassium 3.8 mmol/L (3.5-5.1); Sodium 136 mmol/L (136-145)
== END 2018-03-11 14:56 | disposition home or self-care (01) ==
LOC: MERGE 14:55 → LABBT 14:55
PROVIDERS: ATTEND Urology
DX: Z01.818 Encounter for other preprocedural examination (principal); C67.9 Malignant neoplasm of bladder, unspecified
CPT/HCPCS: 80048; 85025; 85610; 85730; 87086; 93005; 93010

== ENCOUNTER 2018-03-16 14:12 | Outpatient (CLI) | payer MEDICARE, MEDICAID | END 2018-03-16 14:13 | disposition home or self-care (01) | LOC: LABBT 14:12 | PROVIDERS: ATTEND Urology | DX: Z01.812 Encounter for preprocedural laboratory examination (principal); C67.9 Malignant neoplasm of bladder, unspecified | CPT/HCPCS: 86850; 86900; 86901 ==

== ENCOUNTER 2018-03-19 09:48 | Observation (INO) | payer MEDICARE, MEDICAID ==
[2018-03-19] MEDS ORDERED: SUGAMMADEX SODIUM 200 MG/2 ML VIAL ONE (11:24)
[2018-03-19] MEDS ORDERED: Fentanyl 100 MCG/2 ML VIAL ONE (11:24)
[2018-03-19] MEDS ORDERED: PHENYLEPHRINE-NS 100 MCG/ML 10 ML SYRINGE ONE (11:54)
[2018-03-19] MEDS ORDERED: ePHEDrine/0.9% NaCl/PF SYRINGE 50 mg/10 ml ONE (11:54)
[2018-03-19] MEDS ORDERED: Lidocaine 1% PF 5 ML VIAL ONE (11:54)
[2018-03-19] MEDS ORDERED: Esmolol 100 MG/10 ML VIAL ONE (11:54)
[2018-03-19] MEDS ORDERED: Glycopyrrolate 0.2 MG/ML 5 ML SYRINGE ONE (11:54)
[2018-03-19] MEDS ORDERED: PROPOFOL 200 MG/20 ML VIAL ONE (11:54)
[2018-03-19] MEDS ORDERED: Levofloxacin 500 mg/D5W 100 ml Premix Bag ONE (12:20)
[2018-03-19] MEDS ORDERED: Furosemide 20 MG/2 ML VIAL ONE (12:47)
[2018-03-19] MEDS ORDERED: Iothalamate Meglumine 60% 50 ML VIAL FS ONE (14:38)
[2018-03-19] MEDS ORDERED: Bisacodyl 10 MG SUPP PR PRN (15:02)
[2018-03-19] MEDS ORDERED: Hyoscyamine Sulfate SL 0.125 mg Tablet SL PRN (15:02)
[2018-03-19] MEDS ORDERED: Mag-Al 1200 mg/1200 mg/30 ML UDCUP PO PRN (15:02)
[2018-03-19] MEDS ORDERED: diphenhydrAMINE 25 MG CAP PO PRN (15:02)
[2018-03-19] MEDS ORDERED: hydrALAZINE 20 MG/ML VIAL SLOW IVP PRN (15:02)
[2018-03-19] MEDS ORDERED: traMADol HCl 50 MG TAB PO PRN ×2 (15:04)
[2018-03-19] MEDS ORDERED: Acetaminophen 500 MG TAB PO PRN (15:06)
[2018-03-19] MEDS ORDERED: Nitroglycerin 0.4 MG TAB (25 Tab Bottle) SL PRN (15:06)
--- NOTE | 2018-03-19 15:38 | OP ---
DATE OF PROCEDURE: 03/19/2018 SERVICE: Urology. SURGEON: David Johnston M.D. PREOPERATIVE DIAGNOSIS: Bladder cancer. POSTOPERATIVE DIAGNOSIS: Bladder cancer. PROCEDURE PERFORMED: Transurethral resection of bladder tumor greater than 5 cm and left retrograde pyelogram. INDICATIONS FOR PROCEDURE: Mrs. Barrera is a 73-year-old black female who was multifocal diffuse and extensive bladder cancer. She underwent a prior resection for over 3 hours, which demonstrated high grade bladder cancer with questionable muscle invasion by clinical suspicion is extremely likely to b e muscle invasive. Due to bladder perforation, the prior procedure had to be terminated. She had a catheter in for 4 weeks and underwent a cystogram which demonstrated no evidence of extravasation. S he is now coming in for completion of her TURBT. Risks and benefits have been discussed and she has agreed to proceed forward. DESCRIPTION OF PROCEDURE: After identification of armband and verification of consent, the patient w as brought back to the operating room where she underwent general anesthesia with endotracheal intuba tion and paralysis. She was then placed in dorsal lithotomy position and prepped and draped in usual sterile fashion. After appropriate timeout, a lubricated 26-Maltese resectoscope was placed into the bladder. The visual obturator was then switched out for the bipolar gyrus loop for bladder resectio n. There was an extensive amount of tumor still left and multiple tumors, some of which may be new b ased on the prior resection, although this could not be entirely verified. The satellite tumors and small tumors were all resected in their entirety from around the bladder neck, lateral mcmullen and floo r of the bladder. The extremely large tumor on the dome of the bladder extending to the right side w as extremely large and bulky. This was debulked for approximately 2-1/2 hours at which point I felt that the tumor had been resected to fairly flush with the bladder wall. The probably could be more r esection done, but at great risk of perforating the bladder into the dome, which may leak into the pe ritoneal cavity. As such, I feel that at this point, it is not really possible for me to resect any more safely without having a high risk for bladder perforation. I think the best option for this poi nt would be for her to undergo chemotherapy with radiation to the bladder. If there is any residual tumor after this, we could always consider a repeat TURBT subsequently. Unfortunately, this represen ts an overall poor prognosis, but the patient is in poor health and would not tolerate a cystectomy. As such, I elected to finish the procedure. Cauterization was done as best as possible, although th e tumor is difficult to achieve full hemostasis on. The bleeding seemed to be relatively mild upon c ompletion and most of the bleeding areas had clotted off with stable clots on the urothelium. Both u reters were identified. The right side appeared relatively normal, although the orifice was small. The left side appeared almost stenotic, although prior resection had not been directly over the UO. Out of concern for possible fibrosis from prior resection. A 5 Maltese Pollack catheter was introduce d with the bridge for the resectoscope directly into the ureteral orifice. A retrograde pyelogram wa s performed which demonstrated a normal caliber ureter and a nonhydronephrotic kidney. The Pollack c atheter was then removed and we waited for approximately 1 minute and then another spot fluoroscopy w as done which demonstrated drainage of all the contrast in the ureter. There was still some residual contrast within the renal pelvis, but this is likely secondary to gravity and layering. I am not co ncerned about ureteral obstruction. Therefore, the Pollack catheter was removed. Satisfied that the ureter is sufficiently draining, a final look for any bladder tumor chips was identified. Most of t he tumor chips were evacuated during the procedure using the [employer] evacuator as the procedure went al megan to ensure that all bladder tumor chips were removed as we went. Upon completion, again the tumor s primarily debulked and there is still extensive amount of tumor left on the wall of the bladder whi ch is now probably into the muscle and likely to be unresectable without a high risk of bladder perfo ration. A 20-Maltese 3-way Núñez catheter was placed in the patient's bladder with 30 mL of sterile w ater in the balloon. CBI was initiated. The patient was then awakened and taken to PACU for recover y in stable condition with her catheter secured to a StatLock. COMPLICATIONS: None. ESTIMATED BLOOD LOSS: Minimal. RETAINED TUBES AND DRAINS: A 20 Maltese 3-way Núñez catheter on CBI. SPECIMENS: Bladder tumor. DISPOSITION: The patient will be kept in the hospital overnight for monitoring. We will plan to sto p her CBI tomorrow and as long as her hematuria clears up, I think she can be discharged home without a catheter. I will wait to restart her aspirin and Plavix until her hematuria has resolved.
--- NOTE | 2018-03-19 15:50 | RAD ---
RETROGRADE PYELOGRAM: 03/19/18 Two fluoroscopic images from the OR presented. INDICATIONS: Ureteral obstruction. Intraoperative imaging during retrograde procedure. FINDINGS/IMPRESSION: The first image shows opacification of the left ureter and upper collecting structures. There is evid ence of two filling defects in the proximal ureter just beyond the UPJ. There is no hydronephrosis se en. The second film shows drainage. POS: [facility]
[2018-03-19] MEDS ORDERED: Ondansetron PF 4 MG/2 ML Vial ONE (16:11)
[2018-03-19] MEDS: Fluconazole 100 MG TAB PO SCH (18:01)
[2018-03-19] MEDS: Oxybutynin 5 MG TAB PO PRN (18:01)
[2018-03-19] MEDS: Morphine 2 MG/ML SYRINGE IVP PRN (18:41)
[2018-03-19] MEDS ORDERED: oxyCODONE/Acetaminophen 5 mg/325 mg Tablet PO PRN (18:43)
[2018-03-19] MEDS: cefTRIAXone\\ROCEPHIN 1 GM in Sodium Chloride 0.9% 100 ML IVPB SCH (18:53)
[2018-03-19] MEDS: Rosuvastatin 10 MG TAB PO SCH (20:13)
[2018-03-19] MEDS: Metoprolol Tartrate 25 MG TAB PO SCH (20:13)
[2018-03-19] MEDS: Famotidine 20 MG TAB PO SCH (20:13)
[2018-03-19] MEDS: Gabapentin 300 MG CAP PO SCH (20:13)
[2018-03-19] MEDS: Docusate 100 MG CAP PO SCH (20:13)
[2018-03-19] MEDS: oxyCODONE/Acetaminophen 5 mg/325 mg Tablet PO PRN (23:39)
[2018-03-20 04:57] LABS: #Eosinphils 0.1 thou/uL (0.0-0.7); #Lymphocytes 1.2 thou/uL (1.20-3.40); #Monocytes 0.6 thou/uL (0.11-0.59); #Neutrophils 6.2 thou/uL (1.40-6.50); %Basophils 0.4 % (0.0-1.0); %Eosinophils 1.7 % (0.0-10.0); %Lymphocytes 14.6 % (21.0-51.0); %Monocytes 6.9 % (0.0-10.0); %Neutrophils 76.4 % (42.0-75.0); Hemoglobin 8.1 g/dL (12.0-16.0); Mean Corpuscular HGB CONC 31.6 g/dL (32.0-36.0); Mean Corpuscular Hemoglobin 28.2 pg (27.0-31.0); Mean Corpuscular Volume 89.3 fL (78.0-98.0); Platelet Count 284 thou/uL (130-400); RBC Distribution Width 13.3 % (11.5-14.5); Red Blood Cell (RBC) Count 2.89 mill/uL (4.20-5.40); White Blood Cell (WBC) Count 8.2 thou/uL (4.8-10.8)
[2018-03-20 05:13] LABS: Anion Gap 10 mmol/L (10-20); BUN (Urea Nitrogen) 10 mg/dL (9.8-20.1); Calc. Creatinine Clearance 40 mL/min (70-130); Calcium 8.2 mg/dL (7.8-10.44); Carbon Dioxide 21 mmol/L (23-31); Chloride 110 mmol/L (98-107); Estimated GFR-MDRD Greater than 90; Glucose 98 mg/dL (83-110); Potassium 4.2 mmol/L (3.5-5.1); Sodium 137 mmol/L (136-145)
[2018-03-20] MEDS: Docusate 100 MG CAP PO SCH ×2 (10:04→21:45)
[2018-03-20] MEDS: Ferrous Sulfate 325 MG TAB PO SCH (10:04)
[2018-03-20] MEDS: Amlodipine 5 MG TAB PO SCH (10:04)
[2018-03-20] MEDS: Metoprolol Tartrate 25 MG TAB PO SCH ×2 (10:04→21:44)
--- NOTE | 2018-03-20 15:58 | PRG ---
DATE OF SERVICE: 03/20/2018 SUBJECTIVE: The patient had a headache this morning, but this has now resolved. She has been having a lot of bladder spasms, but this has improved with increasing her dose of oxybutynin and using Levs in. She states the new pain medication is working much better than the tramadol which was not contro lling her pain yesterday. We have switched her to Percocet and she states this has been more effecti ve without any adverse drug reactions. Her CBI was attempted to be stopped this morning, but her uri ne got very red, so CBI had to be restarted. OBJECTIVE: VITAL SIGNS: Temperature 97.4, pulse 63, respirations 16, blood pressure 105/65, saturation 96% on r oom air. GENERAL: No apparent distress, communicative and alert. CARDIOVASCULAR: Regular rate and rhythm. CHEST: No increased work of breathing, bibasilar crackles. ABDOMEN: Soft, nontender, nondistended, positive bowel sounds. GENITOURINARY: Núñez catheter in place, secured with StatLock with moderately red urine which was tr anslucent with the CBI on a slow drip. EXTREMITIES: No clubbing, cyanosis or edema. LABORATORY DATA: On laboratory evaluation, a full set of labs are in the [facility] system, which I mueller ve reviewed. Of note, patient's hemoglobin is 8.1 with creatinine of 0.75. ASSESSMENT AND PLAN: A 73-year-old black female with likely muscle invasive bladder cancer, high gra de status post TURBT. Repeat TURBT with removal of approximately 90% of her tumor. At this point, I think I have reached the extent of what I think I can resect safely without perforating at the dome of her bladder, which could be potentially catastrophic. I did offer for her to go to see Dr. Delta mckeon in [place] who is a bladder cancer specialist who may be able to resect more tissue than what I could do for further debulking, which will further improve the efficacy of subsequent chemotherapy w ith radiation. She stated she did not want to go to [place], does not want to have anymore surgeries with anyone else. Since I think I reached the maximum of what I can do safely, the next step will p robably be for her to undergo chemotherapy with radiation as an outpatient. For now, I think her uri ne is still a little bit too bloody for the discontinuation of the CBI and catheter. I recommended w e keep the catheter in for another 24 hours and plan to turn off the CBI again tomorrow. I will then see if her urine stays clear enough at which point we can take out her catheter. If she is able to void several times without excessively bloody urine or passing any significant clots, I think she can be discharged home. I will keep her off her blood thinners until her hematuria clears at which poin t she may be able to resume her blood thinners. She obviously understands that being on blood thinne rs, puts her at increased risk of strokes and heart attacks. Despite this, she faces a more immediat e and pressing problem if she starts blood thinners currently given her hematuria. For now, we will keep everything as is with her on CBI.
[2018-03-20] MEDS: Morphine 2 MG/ML SYRINGE IVP PRN (16:47)
[2018-03-20] MEDS: cefTRIAXone\\ROCEPHIN 1 GM in Sodium Chloride 0.9% 100 ML IVPB SCH (16:47)
[2018-03-20] MEDS: Fluconazole 100 MG TAB PO SCH (20:00)
[2018-03-20] MEDS: Rosuvastatin 10 MG TAB PO SCH (21:44)
[2018-03-20] MEDS: Famotidine 20 MG TAB PO SCH (21:44)
[2018-03-20] MEDS: Gabapentin 300 MG CAP PO SCH (21:45)
[2018-03-21] MEDS: Ferrous Sulfate 325 MG TAB PO SCH (09:56)
[2018-03-21] MEDS: Metoprolol Tartrate 25 MG TAB PO SCH ×3 (09:56→20:42)
[2018-03-21] MEDS: Amlodipine 5 MG TAB PO SCH ×2 (09:56→10:24)
[2018-03-21] MEDS: Docusate 100 MG CAP PO SCH ×2 (09:57→20:38)
--- NOTE | 2018-03-21 11:22 | PRG ---
DATE OF SERVICE: 03/21/2018 SUBJECTIVE: The patient states that she is tired. She does not like her SCDs. She wants to go home now. Her CBI has been draining very well overnight and the bladder was completely cleared as of this morning. She has had some mild bladder spasms, but states that the medications with the oxybutynin and the Percocet are working quite well for her. OBJECTIVE: VITAL SIGNS: Temperature 98.5, pulse 73, respirations 15, blood pressure 111/73 , saturations 93% on room air. GENERAL: No apparent distress, communicative, alert. Appears fatigued. CARDIOVASCULAR: Regular rate and rhythm. CHEST: No increased work of breathing, bibasilar crackles. ABDOMEN: Soft, nontender, nondistended. Mild suprapubic tenderness. GENITOURINARY: Núñez catheter in place, secured with StatLock on slow drip CBI with completely clear urine with no blood. EXTREMITIES: No clubbing, cyanosis or edema. LABORATORY DATA: The full set of labs in the [facility] system, which I have reviewed. Of note, there are no new labs today. ASSESSMENT AND PLAN: A 73-year-old black female with extensive high grade bladder cancer, which is likely muscle invasive, status post transurethral resection of bladder tumor with significant postop bleeding and hematuria. This seems to have cleared up now and she has been off of her antiplatelet therapy. I do not think she can restart her antiplatelets at this time until she has had clear urine for at least 48 hours. She would likely start having blood in her urine when she resumed spontaneous voiding on her own. We will discontinue her Núñez today and see how well she can urinate. As long as she can urinate easily with no excessive blood in the urine, I will let her go home and she will be instructed that she cannot restart her aspirin and Plavix again until she has had clear urine for at least 48 hours. At that point, she may resume her aspirin and Plavix, which I know is important given that she does have significant cardiovascular disease and has already had a transient ischemic attack the last time she was taken off her aspirin and Plavix for her last surgery. We will plan to discharge today as long as she is able to void and she does not have significant hematuria and otherwise is doing well. I will plan to see her back in approximately 2 weeks for a postop check, at which point we will refer her over for chemotherapy with radiation. She has already refused a referral to Dr. Mejia in [place] for more aggressive transurethral resection of bladder tumor to try and remove any remaining tumor. She does understand that this decreases the likely efficacy of chemotherapy and radiation given that the cancer is not completely debulked, but again this is the most she felt I could do safely without perforating the dome of her bladder. ADDENDUM: Upon going back to patient's room for final instructions, she notified my she could not walk. Attempts to have her stand showed significant weakness in her left leg. Neuro exam showed no specific weakness but pt states she cannot stand or walk. Medicine was consulted for possible TIA vs CVA and I spoke with Dr. Tomas directly. FL[facility]
[2018-03-21 11:49] LABS: Hemoglobin 6.9 g/dL (12.0-16.0)
[2018-03-21 12:06] LABS: Anion Gap 11 mmol/L (10-20); BUN (Urea Nitrogen) 7 mg/dL (9.8-20.1); Calc. Creatinine Clearance 38 mL/min (70-130); Calcium 8.4 mg/dL (7.8-10.44); Carbon Dioxide 24 mmol/L (23-31); Chloride 108 mmol/L (98-107); Estimated GFR-MDRD 83; Glucose 116 mg/dL (83-110); Potassium 3.6 mmol/L (3.5-5.1); Sodium 139 mmol/L (136-145)
--- NOTE | 2018-03-21 13:03 | PDOC.PN ---
- Subjective Encounter Start Date: 03/21/18 Encounter Start Time: 13:00 Subjective: IM team consulted for Left leg weakness.Pt seen and examined. -: case discussed w consulting MD Dr. Johnston -: off of ASa & Plavix for TURP yesterday for Bladder CA removal H?O CVA,CAD,TIA Pt was not able to put weight on left leg .no other weakness.reports that leg is moving well when lying or sitting,she just can't stand on it and it keeps buckling. denies any slurred speech,visual changes,paraesthesias.No other muscle weakness.no dizziness. - Objective MAR Reviewed: Yes Vital Signs & Weight: Vital Signs (12 hours) Temp Pulse Resp BP BP Pulse Ox 03/21/18 12:00 99.2 F 80 16 110/30 L 97 03/21/18 10:24 73 111/73 03/21/18 08:10 98.5 F 73 15 111/73 93 L 03/21/18 08:00 98.5 F 73 15 111/73 93 L 03/21/18 04:23 99.9 F H 71 16 103/65 95 Weight Admit Weight 83 lb Weight 85 lb 12.8 oz I&O: 03/20/18 03/21/18 03/22/18 06:59 06:59 05:59 Intake Total 1251 480 Output Total 3570 2400 8050 Balance -2599 -3625 -7359 Result Diagrams: 03/21/18 11:27 03/21/18 11:27 Additional Labs: Laboratory Tests 03/11/18 03/20/18 03/21/18 16:05 04:17 11:27 Hgb 11.1 L 8.1 L 6.9 L Phys Exam - Physical Examination Constitutional: NAD HEENT: PERRLA, moist MMs, sclera anicteric, oral pharynx no lesions Neck: no nodes, no JVD, supple, full ROM Respiratory: no wheezing, no rales, no rhonchi, clear to auscultation bilateral Cardiovascular: RRR, no significant murmur, no rub Gastrointestinal: soft, non-tender, no distention, positive bowel sounds Musculoskeletal: no edema, pulses present Neurological: non-focal, normal sensation, moves all 4 limbs no objective focal neurological deficit Psychiatric: normal affect, A&O x 3 Skin: no rash Dx/Plan (1) Left leg weakness Code(s): R29.898 - OTH SYMPTOMS AND SIGNS INVOLVING THE MUSCULOSKELETAL SYSTEM Status: Acute (2) Acute blood loss anemia Code(s): D62 - ACUTE POSTHEMORRHAGIC ANEMIA Status: Acute (3) CAD (coronary artery disease) Code(s): I25.10 - ATHSCL HEART DISEASE OF [place] CORONARY ARTERY W/O ANG PCTRS Status: Chronic (4) H/O TIA (transient ischemic attack) and stroke Code(s): Z86.73 - PRSNL HX OF TIA (TIA), AND CEREB INFRC W/O RESID DEFICITS Status: Chronic (5) Bladder cancer Status: Chronic Comment: s/p TURP 03/20/18 (6) HTN (hypertension) Code(s): I10 - ESSENTIAL (PRIMARY) HYPERTENSION Status: Chronic - Plan out of bed/ambulate, DVT proph w/SCDs Hd stable.? concerns for TIA but neuro exam largely WNL -: will get MRI and consult neurology.transfer to Stroke floor w Q2h neuro helen -: H/H lower today.suspect mild bleeding in procedure.Transfuse 1 unit & reche -: Lytes checked and WNL.follow. -: Cont to hold ASA & Plavix d/t drop in H/H.no overt bleed.?cerebral bleed * . Review of Systems - Review of Systems Constitutional: weakness. negative: fever, chills, sweats, malaise, other ENT: negative: Ear Pain, Ear Discharge, Nose Pain, Nose Discharge, Nose Congestion, Mouth Pain, Mouth Swelling, Throat Pain, Throat Swelling, Other Respiratory: negative: Cough, Dry, Shortness of Breath, Hemoptysis, SOB with Excertion, Pleuritic Pain, Sputum, Wheezing Cardiovascular: negative: chest pain, palpitations, orthopnea, paroxysmal nocturnal dyspnea, edema, light headedness, other Gastrointestinal: negative: Nausea, Vomiting, Abdominal Pain, Diarrhea, Constipation, Melena, Hematochezia, Other Genitourinary: negative: Dysuria, Frequency, Incontinence, Hematuria, Retention , Other Musculoskeletal: negative: Neck Pain, Shoulder Pain, Arm Pain, Back Pain, Hand Pain, Leg Pain, Foot Pain, Other Neurological: Weakness. negative: Numbness, Incoordination, Change in Speech, Confusion, Seizures, Other - Medications/Allergies Allergies/Adverse Reactions: Allergies Allergy/AdvReac Type Severity Reaction Status Date / Time JEANNINE Inhibitors Allergy Verified 03/13/18 08:59 hydrocodone Allergy Verified 03/13/18 08:59 Medications: Current Medications Acetaminophen (Tylenol) 500 mg PO Q4H PRN PRN Reason: MURPHY/Fever > 101F/mild pain(1-3) Al Hydroxide/Mg Hydroxide (Maalox) 30 ml PO Q4H PRN PRN Reason: Indigestion Albuterol/Ipratropium (Duoneb) 3 ml NEB Q6H PRN PRN Reason: SOB &/or Wheezing Amlodipine Besylate (Norvasc) 5 mg PO DAILY [facility] Last Admin: 03/21/18 10:24 Dose: Not Given Bisacodyl (Dulcolax) 10 mg [place] DAILYPRN PRN PRN Reason: Constipation Diphenhydramine HCl (Benadryl) 25 mg PO Q6H PRN PRN Reason: Itching Docusate Sodium (Colace) 100 mg PO BID [facility] Last Admin: 03/21/18 09:57 Dose: 100 mg Famotidine (Pepcid) 20 mg PO [facility] Last Admin: 03/20/18 21:44 Dose: 20 mg Ferrous Sulfate (Feosol) 325 mg PO [facility] Last Admin: 03/21/18 09:56 Dose: 325 mg Gabapentin (Neurontin) 300 mg PO [facility] Last Admin: 03/20/18 21:45 Dose: 300 mg Hydralazine HCl (Apresoline) 20 mg SLOW IVP Q6H PRN PRN Reason: SBP greater than 160/100 Hyoscyamine Sulfate (Levsin Sl) 0.25 mg SL Q6H PRN PRN Reason: Bladder Spasms Last Admin: 03/19/18 18:42 Dose: 0.25 mg Metoprolol Tartrate (Lopressor) 25 mg PO BID [facility] Last Admin: 03/21/18 10:24 Dose: Not Given Morphine Sulfate (Morphine) 2 mg IVP Q2H PRN PRN Reason: Moderate Pain (4-6) Last Admin: 03/20/18 16:47 Dose: 2 mg Nitroglycerin (Nitrostat) 0.4 mg SL PRN PRN PRN Reason: Chest Pain Oxybutynin Chloride (Ditropan) 5 mg PO Q8H PRN PRN Reason: Bladder Spasms Last Admin: 03/19/18 18:01 Dose: 5 mg Oxycodone/Acetaminophen (Percocet 5/325) 1 tab PO Q4H PRN PRN Reason: Moderate Pain (4-6) Last Admin: 03/19/18 23:39 Dose: 1 tab Oxycodone/Acetaminophen (Percocet 5/325) 2 tab PO Q4H PRN PRN Reason: Severe Pain (7-10) Rosuvastatin Calcium (Crestor) 10 mg PO HS [facility] Last Admin: 03/20/18 21:44 Dose: 10 mg Sodium Chloride (Flush - Normal Saline) 10 ml IVF PRN PRN PRN Reason: Saline Flush Last Admin: 03/20/18 16:48 Dose: 10 ml
[2018-03-21] MEDS ORDERED: Gadobenate Dimeglumine 529 MG/1 ML (20ML VIAL) ONE (14:01)
--- NOTE | 2018-03-21 14:37 | MRI ---
MRI OF BRAIN PERFORMED WITH AND WITHOUT CONTRAST ENHANCEMENT: HISTORY: A patient with stroke symptoms, left leg pain and weakness. FINDINGS: There is some generalized ventricular and sulcal prominence. There is T2 and FLAIR signal change in the white matter consistent with some chronic white matter change. Old-appearing lacunar infarct is seen in the right external capsule near the anterior limb of the internal capsule and also there is a suggestion of possible small old lacunar infarct in the left external capsule region with some hemos iderin deposition seen on the gradient echo sequence. On the diffusion weighted sequence, I see no e vidence of any type of acute infarct. Postcontrast images are marred by motion artifact, but I do not see any abnormal enhancement. No mas s lesion or mass effect. Pituitary region appears grossly unremarkable. IMPRESSION: Atrophy with chronic white matter change. No acute intracranial abnormalities. POS: [facility]
[2018-03-21 18:52] VITALS: BMI 16.9
[2018-03-21] MEDS: Famotidine 20 MG TAB PO SCH (20:38)
[2018-03-21] MEDS: Rosuvastatin 10 MG TAB PO SCH (20:38)
[2018-03-21] MEDS: Gabapentin 300 MG CAP PO SCH (20:38)
[2018-03-21] MEDS: Oxybutynin 5 MG TAB PO PRN (22:11)
[2018-03-22 05:10] LABS: Hemoglobin 9.7 g/dL (12.0-16.0)
[2018-03-22 05:20] LABS: Anion Gap 10 mmol/L (10-20); BUN (Urea Nitrogen) 6 mg/dL (9.8-20.1); Calc. Creatinine Clearance 41 mL/min (70-130); Calcium 8.9 mg/dL (7.8-10.44); Carbon Dioxide 26 mmol/L (23-31); Chloride 106 mmol/L (98-107); Estimated GFR-MDRD Greater than 90; Glucose 134 mg/dL (83-110); Potassium 3.4 mmol/L (3.5-5.1); Sodium 139 mmol/L (136-145)
[2018-03-22] MEDS: Metoprolol Tartrate 25 MG TAB PO SCH ×2 (08:34→20:06)
[2018-03-22] MEDS: Amlodipine 5 MG TAB PO SCH (08:34)
[2018-03-22] MEDS: Ferrous Sulfate 325 MG TAB PO SCH (08:34)
[2018-03-22] MEDS: Docusate 100 MG CAP PO SCH ×2 (08:34→20:06)
--- NOTE | 2018-03-22 10:50 | PDOC.PN ---
- Subjective Encounter Start Date: 03/22/18 Encounter Start Time: 10:49 Subjective: feels good. -: reports that left foot & ankle can't bear weight d/t pain -: reports symptoms ongoing for months.no leg weakness - Objective MAR Reviewed: Yes Vital Signs & Weight: Vital Signs (12 hours) Temp Pulse Resp BP BP Pulse Ox 03/22/18 08:34 70 03/22/18 08:00 99 F 70 20 142/68 H 97 03/22/18 05:10 99.0 F 66 16 141/67 H 98 03/22/18 05:00 99.0 F 66 16 141/67 H 97 03/22/18 00:00 98.8 F 66 18 135/67 100 Weight Admit Weight 83 lb Weight 85 lb I&O: 03/21/18 03/22/18 03/23/18 07:59 06:59 06:59 Intake Total 350 Output Total Balance 350 Result Diagrams: 03/22/18 04:50 03/22/18 04:50 Phys Exam - Physical Examination Constitutional: NAD HEENT: PERRLA, moist MMs, sclera anicteric, oral pharynx no lesions Neck: no nodes, no JVD, supple, full ROM Respiratory: no wheezing, no rales, no rhonchi, clear to auscultation bilateral Cardiovascular: RRR, no significant murmur, no rub Gastrointestinal: soft, non-tender, no distention, positive bowel sounds Musculoskeletal: no edema, pulses present can not bear weight on L ankle/foot d/t pain Neurological: non-focal, normal sensation, moves all 4 limbs Psychiatric: normal affect, A&O x 3 Skin: no rash Dx/Plan (1) Left leg weakness Code(s): R29.898 - [facility] SYMPTOMS AND SIGNS INVOLVING THE MUSCULOSKELETAL SYSTEM Status: Acute Comment: Likley due to pain from old sprain Vs Fracture.no CVA on MRI. Doubtful TIA (2) Acute blood loss anemia Code(s): D62 - ACUTE POSTHEMORRHAGIC ANEMIA Status: Acute Comment: s/p PRBC yesterday (3) CAD (coronary artery disease) Code(s): I25.10 - ATHSCL HEART DISEASE OF [place] CORONARY ARTERY W/O ANG PCTRS Status: Chronic (4) H/O TIA (transient ischemic attack) and stroke Code(s): Z86.73 - PRSNL HX OF TIA (TIA), AND CEREB INFRC W/O RESID DEFICITS Status: Chronic (5) Bladder cancer Status: Chronic Comment: s/p TURP 03/20/18 (6) HTN (hypertension) Code(s): I10 - ESSENTIAL (PRIMARY) HYPERTENSION Status: Chronic - Plan PT/OT, DVT proph w/SCDs ASA & plavix on hold per urology -: H/H stable post transfusion -: leg symptoms likley d/t pain.check ankle XRay -: MRI lumbar spine per Neurology.appreciate Input -: OK to DC from IM stand point if XRay w/o fracture * . Review of Systems - Review of Systems Constitutional: negative: fever, chills, sweats, weakness, malaise, other ENT: negative: Ear Pain, Ear Discharge, Nose Pain, Nose Discharge, Nose Congestion, Mouth Pain, Mouth Swelling, Throat Pain, Throat Swelling, Other Respiratory: negative: Cough, Dry, Shortness of Breath, Hemoptysis, SOB with Excertion, Pleuritic Pain, Sputum, Wheezing Cardiovascular: negative: chest pain, palpitations, orthopnea, paroxysmal nocturnal dyspnea, edema, light headedness, other Gastrointestinal: negative: Nausea, Vomiting, Abdominal Pain, Diarrhea, Constipation, Melena, Hematochezia, Other Genitourinary: negative: Dysuria, Frequency, Incontinence, Hematuria, Retention , Other Musculoskeletal: Foot Pain Neurological: negative: Weakness, Numbness, Incoordination, Change in Speech, Confusion, Seizures, Other - Medications/Allergies Allergies/Adverse Reactions: Allergies Allergy/AdvReac Type Severity Reaction Status Date / Time JEANNINE Inhibitors Allergy Verified 03/13/18 08:59 hydrocodone Allergy Verified 03/13/18 08:59 Medications: Current Medications Acetaminophen (Tylenol) 500 mg PO Q4H PRN PRN Reason: MURPHY/Fever > 101F/mild pain(1-3) Al Hydroxide/Mg Hydroxide (Maalox) 30 ml PO Q4H PRN PRN Reason: Indigestion Albuterol/Ipratropium (Duoneb) 3 ml NEB Q6H PRN PRN Reason: SOB &/or Wheezing Amlodipine Besylate (Norvasc) 5 mg PO DAILY PING Last Admin: 03/22/18 08:34 Dose: 5 mg Bisacodyl (Dulcolax) 10 mg FL DAILYPRN PRN PRN Reason: Constipation Diphenhydramine HCl (Benadryl) 25 mg PO Q6H PRN PRN Reason: Itching Docusate Sodium (Colace) 100 mg PO BID [facility] Last Admin: 03/22/18 08:34 Dose: 100 mg Famotidine (Pepcid) 20 mg PO [facility] Last Admin: 03/21/18 20:38 Dose: 20 mg Ferrous Sulfate (Feosol) 325 mg PO [facility] Last Admin: 03/22/18 08:34 Dose: 325 mg Gabapentin (Neurontin) 300 mg PO [facility] Last Admin: 03/21/18 20:38 Dose: 300 mg Hydralazine HCl (Apresoline) 20 mg SLOW IVP Q6H PRN PRN Reason: SBP greater than 160/100 Hyoscyamine Sulfate (Levsin Sl) 0.25 mg SL Q6H PRN PRN Reason: Bladder Spasms Last Admin: 03/19/18 18:42 Dose: 0.25 mg Metoprolol Tartrate (Lopressor) 25 mg PO BID [facility] Last Admin: 03/22/18 08:34 Dose: 25 mg Morphine Sulfate (Morphine) 2 mg IVP Q2H PRN PRN Reason: Moderate Pain (4-6) Last Admin: 03/20/18 16:47 Dose: 2 mg Nitroglycerin (Nitrostat) 0.4 mg SL PRN PRN PRN Reason: Chest Pain Oxybutynin Chloride (Ditropan) 5 mg PO Q8H PRN PRN Reason: Bladder Spasms Last Admin: 03/21/18 22:11 Dose: 5 mg Oxycodone/Acetaminophen (Percocet 5/325) 1 tab PO Q4H PRN PRN Reason: Moderate Pain (4-6) Last Admin: 03/19/18 23:39 Dose: 1 tab Oxycodone/Acetaminophen (Percocet 5/325) 2 tab PO Q4H PRN PRN Reason: Severe Pain (7-10) Rosuvastatin Calcium (Crestor) 10 mg PO [facility] Last Admin: 03/21/18 20:38 Dose: 10 mg Sodium Chloride (Flush - Normal Saline) 10 ml IVF PRN PRN PRN Reason: Saline Flush Last Admin: 03/21/18 20:38 Dose: 10 ml
--- NOTE | 2018-03-22 11:11 | PRG ---
DATE OF SERVICE: 03/22/2018 SUBJECTIVE: The patient is doing much better today. She is urinating on her own without any signifi cant difficulty. She does have significant urgency and occasional urge incontinence. Her hematuria has cleared, but is still present. She is able to ambulate today and get up on her right leg, althou gh she is still a little unstable and wobbly when walking. This represents an improvement from yeste rday. Her MRI did not show any acute abnormalities, but she is still undergoing the stroke protocol. OBJECTIVE: VITAL SIGNS: Temperature 99, pulse 70, respirations 20, blood pressure 142/60, saturation 97% on elba m air. GENERAL: No apparent distress, communicative and alert. CARDIOVASCULAR: Regular rate and rhythm. ABDOMEN: Soft, nontender, nondistended. Positive bowel sounds. CHEST: No increased work of breathing. LUNGS: Clear to auscultation. GENITOURINARY: Deferred. EXTREMITIES: No clubbing, cyanosis or edema. NEUROLOGIC: The patient appears to have increased strength in her left leg. She is now walking, alt tera she does have a slightly unsteady gait. She does use objects around the room for support, but she no longer mario under her left leg. She has no other signs of numbness or weakness on any of h er extremities. She does not have any type of cranial nerve abnormalities and cranial nerves II-XII appear grossly intact. LABORATORY DATA: The full set of labs is in the [facility] system, which I reviewed. Of note, the georgie martinez's hemoglobin is now 9.7 after 1 unit of transfusion yesterday. Creatinine is 0.75. ASSESSMENT AND PLAN: A 73-year-old black female with muscle invasive bladder cancer, status post TUR BT with improving hematuria and urination. Her hemoglobin appears stable. It appears that she may h ave had a TIA versus other neurologic versus musculoskeletal type disorder resulting in sudden left l eg weakness, which seems to be improving. She is still being monitored and is planned to get another MRI today per stroke protocol. Her final disposition from my standpoint is to be discharged home un less otherwise recommended by the Neuro and Medicine teams. At this point, her discharge is currentl y being held until her neuro evaluation is complete. Once I have received final clearance by Quentin jiang and Neurology, we can probably send her home. From my standpoint, nothing further needs to be done , but I will continue to keep her in the hospital until the consulting physicians have cleared her fo r discharge.
--- NOTE | 2018-03-22 12:15 | MRI ---
MRI OF LUMBAR SPINE PERFORMED WITHOUT CONTRAST ENHANCEMENT: HISTORY: Back pain and left leg weakness. FINDINGS: The vertebral bodies are normal in height. T here are disk desiccation changes and mild disk narrowin g at L2-3, L3-4, and L4-5. There is motion artifact which degrades detail on this examination. Ther e is a T2 hyperintense area within the right kidney, most likely a cyst. I do not appreciate any def inite periaortic adenopathy. There are some slightly more numerous left periaortic nodes than typica lly seen, but no pathologically enlarged. T12-L1: Unremarkable. L1-2: Degenerative facet changes without canal or foraminal stenosis. L2-3: Disk bulge in conjunction with facet and ligamentous hypertrophy changes associated with a mil d degree of canal narrowing. L3-4: Disk bugle. Facet and ligamentous hypertrophy changes are associated with the mild degree of canal stenosis. No significant foraminal narrowing. L4-5: The disk bulge and facet and ligamentous hypertrophy changes at this level are associated with a moderate degree of canal narrowing. There is also some borderline right and mild left foraminal n arrowing. L5-S1: Degenerative facet and ligamentous hypertrophic changes are seen at this level. There is bor derline foraminal narrowing. IMPRESSION: Areas of mild canal and foraminal narrowing as discussed above. POS: BRENDON
--- NOTE | 2018-03-22 16:48 | RAD ---
LEFT ANKLE THREE VIEWS: HISTORY: Pain. Inability to bear weight. TECHNIQUE: AP, lateral, and oblique views of the left ankle are obtained. FINDINGS: Three views of the left ankle demonstrate no evidence of left ankle fractures, subluxations, or bony lesions. IMPRESSION: Normal three views, left ankle. POS: MICHAEL
--- NOTE | 2018-03-22 19:03 | CON ---
DATE OF CONSULTATION: 03/22/2018 CHIEF COMPLAINT: Left leg weakness. HISTORY OF PRESENT ILLNESS: The patient is a 73-year-old -[place] lady with extensive high g rade bladder cancer likely muscle invasive and she had a recent transurethral resection of bladder tu mor and she has had significant postoperative bleeding and she had anemia due to blood loss. She has been complaining of left leg weakness and a consult was requested. Patient reports she has had left leg weakness for about 1 week and this is prior to her surgical procedure. She reports left foot nu mbness up to the knee and pain in the left leg which developed after surgery. She also felt that her weakness got worse after the surgery. She is now unable to walk on her leg and she has significant pain and her leg is cramping with contact. She has increased tenderness of the leg. She is unable t o describe the type of pain she feels with this leg, but is uncomfortable when touched during the exa m as well. She feels that this pain is in the foot and ankle. PAST MEDICAL HISTORY: Positive for high grade bladder cancer, hypertension, and coronary artery dise ase, aortic stenosis. PAST SURGICAL HISTORY: Left carotid endarterectomy greater than 5 years ago, coronary artery bypass graft x3 vessels over 10 years ago, hysterectomy and tonsillectomy when she was in her 40s. Transure thral resection of bladder tumor greater than 5 cm on 03/19/2018. FAMILY HISTORY: She has a total of 15 siblings, one sister in her 60s from breast cancer 2 brot hers , one in his 60s. Another brother from stroke in his 40s. She has one other brot her that is in his 60s, but is disabled in a wheelchair. Her mother in her 60s following a CVA, myocardial infarction. She fell out of a chair and . Father in his 90s following coronary artery disease and diabetes. Her son is 53, has had strokes. There is no family history of cancer. SOCIAL HISTORY: She smokes half pack a day. She states her lives with her and she does not drink alcohol. LABORATORY DATA: Hemoglobin 9.7, hematocrit 30.2, platelet count 284. White count 8.2 on 03/20/2018 . Sodium 139, potassium 3.4, chloride 106, bicarbonate 26, BUN 6, creatinine 0.75, glucose 134, calc ium 8.9 and her MRI of the brain which was performed on 03/21/2018 was negative except for atrophy wi th chronic white matter changes, no acute infarct was noted. REVIEW OF SYSTEMS: Pulmonary: Negative for cough or hemoptysis or shortness of breath. Cardiovascu lar: Negative for chest pain and palpitation. Dermatologic: Negative for any skin lesions or ulcer s. Hematologic: Positive for anemia due to blood loss. Genitourinary: Positive for bladder cancer . Gastrointestinal: Negative for any nausea, vomiting or abdominal pain. Neurologic: Positive for left leg pain, sensation loss and difficulty with walking. Musculoskeletal: Severe pain in the ank le area. PHYSICAL EXAMINATION: VITAL SIGNS: Her blood pressure was 142/68, pulse was 70, temperature 99 and respiratory rate is 20. GENERAL APPEARANCE: Thin built, well-nourished lady who seems to be very pleasant to speak to. EXTREMITIES: Local exam of the left foot, she had bruising and a bump in the left ankle area in fron t of the ankle joint and she is tender to touch and palpation and it is difficult to move her leg. CHEST: Clear vesicular breathing. HEART: S1, S2 heard, no murmurs. ABDOMEN: Soft, nontender, no organomegaly noted. NEUROLOGICAL: Higher intellectual functions, normal orientation to time, place, person and appropria te conversation. Cranial nerves II-XII, normal extraocular movements and pupils are reactive to ligh t equally and are symmetric. Sensation of the face was normal. No abnormality of strength in the fa cial muscles. Normal hearing to finger rub bilaterally and tongue midline, no atrophy noted. Normal elevation of palate. Motor: Bulk normal, tone normal, strength 5/5 throughout in iliopsoas, hamstr ings, quadriceps, ankle dorsiflexion, plantar flexion, deltoid, biceps, triceps, wrist extension/flex ion, finger extension and flexion bilaterally. Sensory: Normal touch and proprioception bilaterally . Cerebellar: Normal [id number] and [id number]. Gait not tested. IMPRESSION: The patient is a 73-year-old lady with history of high-grade bladder cancer. She had lackey rgery on 03/19/2018. Post-surgically, she had anemia and she also started to complain of left foot n umbness and pain and she reported to us that she had left leg weakness one week prior to admission an d it has been worse after surgery. Since surgery, she has not been able to weightbear and walk on he r foot. Examination shows local abnormality of the left foot with bruising, tenderness to touch. No difficulty with mobility of the ankle joint itself and her neurological examination was normal. I s uspect possible local cause of his problem with her left foot versus systemic versus neurological iss ues such as impingement of any nerve root and there was no dermatomal pattern of numbness either on o ur examination. RECOMMENDATIONS: I requested an MRI of the lumbar spine to make sure there were no local abnormaliti es pertaining to lumbar spinal area. ADDENDUM: MRI of the lumbar spine shows disk desiccation and mild disk narrowing at L2-3, L3-4 and L 4-5 and T2 hyperintense area within the right kidney, most likely cyst and left periaortic nodes and she has mild right and left mild foraminal narrowing of the L4-5. I do not think that this is direct ly causing her leg pain. Please obtain ankle x-rays as well to make sure we are not missing any stress fracture. Call us if y ou have any further questions. This consultation was completed via telemedicine.
[2018-03-22] MEDS: Gabapentin 300 MG CAP PO SCH (20:06)
[2018-03-22] MEDS: Famotidine 20 MG TAB PO SCH (20:06)
[2018-03-22] MEDS: Rosuvastatin 10 MG TAB PO SCH (20:06)
[2018-03-23] MEDS: oxyCODONE/Acetaminophen 5 mg/325 mg Tablet PO PRN (00:56)
[2018-03-23 07:52] VITALS: BP 123/64; TEMP 98
[2018-03-23] MEDS: Amlodipine 5 MG TAB PO SCH (08:19)
[2018-03-23] MEDS: Metoprolol Tartrate 25 MG TAB PO SCH (08:19)
[2018-03-23] MEDS: Ferrous Sulfate 325 MG TAB PO SCH (08:19)
[2018-03-23] MEDS: Docusate 100 MG CAP PO SCH (08:19)
--- NOTE | 2018-03-23 11:57 | PDOC.PN ---
- Subjective Encounter Start Date: 03/23/18 Encounter Start Time: 11:55 Subjective: feels much better.able to walk on left leg -: denies any CP/SOB/muscle weakness - Objective MAR Reviewed: Yes Vital Signs & Weight: Vital Signs (12 hours) Temp Pulse Resp BP Pulse Ox 03/23/18 08:19 54 L 03/23/18 07:51 98.0 F 54 L 16 123/64 100 03/23/18 04:29 98.3 F 57 L 16 132/63 99 03/23/18 00:25 98.0 F 61 18 160/72 H 98 Weight Admit Weight 83 lb Weight 85 lb I&O: 03/22/18 03/23/18 03/24/18 06:59 06:59 06:59 Intake Total 830 Output Total Balance 830 Result Diagrams: 03/22/18 04:50 03/22/18 04:50 Radiology Reviewed by me: Yes (XRay ankle-no fracture.HI lumbar spine-no ac changes) Phys Exam - Physical Examination Constitutional: NAD walking in hallways in street clothes w/o limping HEENT: PERRLA, moist MMs, sclera anicteric, oral pharynx no lesions Neck: no nodes, no JVD, supple, full ROM Respiratory: no wheezing, no rales, no rhonchi, clear to auscultation bilateral Cardiovascular: RRR, no significant murmur Gastrointestinal: soft, non-tender, no distention, positive bowel sounds Musculoskeletal: no edema, pulses present Neurological: non-focal, normal sensation, moves all 4 limbs Dx/Plan (1) Left leg weakness Code(s): R29.898 - [facility] SYMPTOMS AND SIGNS INVOLVING THE MUSCULOSKELETAL SYSTEM Status: Acute Comment: Likley due to pain from old sprain Vs Fracture.no CVA on MRI. Doubtful TIA (2) Acute blood loss anemia Code(s): D62 - ACUTE POSTHEMORRHAGIC ANEMIA Status: Acute Comment: s/p PRBC yesterday (3) CAD (coronary artery disease) Code(s): I25.10 - ATHSCL HEART DISEASE OF [place] CORONARY ARTERY W/O ANG PCTRS Status: Chronic (4) H/O TIA (transient ischemic attack) and stroke Code(s): Z86.73 - PRSNL HX OF TIA (TIA), AND CEREB INFRC W/O RESID DEFICITS Status: Chronic (5) Bladder cancer Status: Chronic Comment: s/p TURP 03/20/18 (6) HTN (hypertension) Code(s): I10 - ESSENTIAL (PRIMARY) HYPERTENSION Status: Chronic - Plan PT/OT, DVT proph w/SCDs OK to DC from IM stand point/CVA ruled out. -: Op f/u w PCP. -: suspect ankle sprain which is chronic -: HD stable * . Review of Systems - Review of Systems Constitutional: negative: fever, chills, sweats, weakness, malaise, other Respiratory: negative: Cough, Dry, Shortness of Breath, Hemoptysis, SOB with Excertion, Pleuritic Pain, Sputum, Wheezing Cardiovascular: negative: chest pain, palpitations, orthopnea, paroxysmal nocturnal dyspnea, edema, light headedness, other Gastrointestinal: negative: Nausea, Vomiting, Abdominal Pain, Diarrhea, Constipation, Melena, Hematochezia, Other Genitourinary: negative: Dysuria, Frequency, Incontinence, Hematuria, Retention , Other Musculoskeletal: negative: Neck Pain, Shoulder Pain, Arm Pain, Back Pain, Hand Pain, Leg Pain, Foot Pain, Other Skin: negative: Rash, Lesions, Juan, Bruising, Other Neurological: negative: Weakness, Numbness, Incoordination, Change in Speech, Confusion, Seizures, Other - Medications/Allergies Allergies/Adverse Reactions: Allergies Allergy/AdvReac Type Severity Reaction Status Date / Time JEANNINE Inhibitors Allergy Verified 03/13/18 08:59 hydrocodone Allergy Verified 03/13/18 08:59
== END 2018-03-23 10:48 | disposition home or self-care (01) ==
LOC: SDC 09:48 → SURG A 15:02 → MERGE 16:00 → 2SE 03-21 12:54
PROVIDERS: ADMIT Urology; ATTEND Urology
PROC: 0T5B8ZZ Destruction of Bladder, Via Natural or Artificial Opening Endoscopic (ICD-10-PCS; principal; 2018-03-19)
PROC: BT1F1ZZ Fluoroscopy of Left Kidney, Ureter and Bladder using Low Osmolar Contrast (ICD-10-PCS; 2018-03-19)
DX: C67.8 Malignant neoplasm of overlapping sites of bladder (principal); I25.10 Atherosclerotic heart disease of native coronary artery without angina pectoris; J44.9 Chronic obstructive pulmonary disease, unspecified; I10 Essential (primary) hypertension; F17.210 Nicotine dependence, cigarettes, uncomplicated; R29.898 Other symptoms and signs involving the musculoskeletal system; D62 Acute posthemorrhagic anemia; M48.061 Spinal stenosis, lumbar region without neurogenic claudication; Z86.73 Personal history of transient ischemic attack (TIA), and cerebral infarction without residual deficits; Z79.02 Long term (current) use of antithrombotics/antiplatelets; Z79.899 Other long term (current) drug therapy; Z88.5 Allergy status to narcotic agent; Z88.8 Allergy status to other drugs, medicaments and biological substances; Z95.1 Presence of aortocoronary bypass graft; Z98.890 Other specified postprocedural states
CPT/HCPCS: 36430; 52005; 52240; 70553; 72148; 73610; 74420; 80048 ×3; 85014 ×2; 85018 ×2; 85025; 86850; 86900; 86901; 86920; 88307; 96365; 96375; 96376; 97139 ×3; C1758; C1769; G0378 ×2; G8978; G8979; G8980; P9016; Q9968; 36415; A9579; J0696; J1940; J1956; J2001; J2270; J2405; J2704; J3010; J7050; Q9961

== ENCOUNTER 2018-04-02 07:57 | Outpatient (CLI) | payer MEDICARE, MEDICAID ==
--- NOTE | 2018-04-02 12:07 | PET ---
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 Exam requested for staging. TECHNIQUE: PET scanning with CT attenuation correction was performed from the base of the brain through the prox imal thighs following the intravenous administration of 11.4 mCi [id number] in the right wrist. Imaging was performed after an uptake interval of 50 minutes. COMPARISON: None. FINDINGS: No waldemar hypermetabolism is seen in the neck, chest, abdomen, pelvis, or inguinal regions. No hyperme tabolic pulmonary nodules, liver, adrenal, or skeletal lesions are identified. There is physiologic activity in the GI and tracts, and the visualized portions of the brain. The CT scan used for attenuation correction demonstrates no evidence of pleural effusions or ascites. Right-sided renal cyst is present. IMPRESSION: No evidence of metastatic disease. POS: BRENDON
== END 2018-04-02 07:58 | disposition home or self-care (01) ==
LOC: PET 07:57
PROVIDERS: ATTEND Radiology Radiation Oncology
DX: C67.8 Malignant neoplasm of overlapping sites of bladder (principal)
CPT/HCPCS: 78815; A9552

== ENCOUNTER 2018-04-03 10:39 | Emergency (ER) | payer MEDICARE, MEDICAID | END 2018-04-03 11:40 | disposition home or self-care (01) | LOC: ERS 10:39 | DX: K02.9 Dental caries, unspecified (principal); K03.81 Cracked tooth; I11.0 Hypertensive heart disease with heart failure; I50.9 Heart failure, unspecified; E11.9 Type 2 diabetes mellitus without complications; F17.210 Nicotine dependence, cigarettes, uncomplicated; E78.5 Hyperlipidemia, unspecified; Z79.899 Other long term (current) drug therapy | CPT/HCPCS: 99406 ==

== ENCOUNTER 2018-10-15 13:16 | Outpatient (CLI) | payer MEDICARE, MEDICAID ==
[~2018-10-15 13:16] MED LIST changes: +Iopamidol 370 76% 50 ML VIAL FS ONE; -Lidocaine 1% PF 5 ML VIAL ONE; -Prevnar 13-Val Conj/PF 0.5 ML SYRINGE IM ONE
--- NOTE | 2018-10-15 15:01 | CT ---
CT CYSTOGRAM OF THE PELVIS: INDICATION: History of malignant neoplasm of the bladder. COMPARISON: PET CT dated 04/02/2018. FINDINGS: There is postprocedural change of a neobladder reconstruction. There is a Núñez catheter within the l ower aspect of the neobladder. There is a left-sided ureteral stent projecting from the neobladder and into the lower abdomen and beyond the [id number]. With retrograde administration of contrast, there is extravasation of contrast from the base of the n eobladder on image 30 of series 3 extending posterior and to the right lateral aspect of the neobladder within the right hemipelvis. There is retrograde opacification of the neobladder and the right ureter. There is some intraluminal linear type filling defects seen within the bladder which may be related to the valvulae conniventes and some intraluminal debris. There is moderate thickening involving the rectal wall and distal sigmoid colon which may be related to radiation therapy changes. Moderate post void residual is seen on the drainage images. Small amount of contrast is seen within t he anterior vulva which may be related to some urinary incontinence. No acute osseous abnormality is evident. IMPRESSION: 1. Postsurgical change of a cystectomy and establishment of a neobladder. There is leakage of contra st from the posterior aspect of the neobladder surgical attachment to the urethra. Findings were called to Dr. Johnston at 3:00 PM on 10/15/2018. 2. Moderate thickening involving the rectum and distal sigmoid colon may reflect post therapy procto colitis; however, a component of an infectious colitis cannot be entirely excluded. Recommend continued follow-up. Transcribed Date/Time: 10/15/2018 3:31 PM
== END 2018-10-15 13:17 | disposition home or self-care (01) ==
LOC: CT 13:16
PROVIDERS: ATTEND Urology
DX: C67.8 Malignant neoplasm of overlapping sites of bladder (principal); K63.89 Other specified diseases of intestine; Z90.6 Acquired absence of other parts of urinary tract
CPT/HCPCS: 72194; Q9967

== ENCOUNTER 2018-10-19 09:30 | Inpatient (IN) | payer MEDICARE, MEDICAID ==
[2018-10-19 10:29] LABS: #Eosinphils 0.2 thou/uL (0.0-0.7); #Lymphocytes 2.1 thou/uL (1.20-3.40); #Monocytes 0.8 thou/uL (0.11-0.59); #Neutrophils 6.1 thou/uL (1.40-6.50); %Basophils 0.4 % (0.0-1.0); %Eosinophils 2.2 % (0.0-10.0); %Lymphocytes 22.6 % (21.0-51.0); %Monocytes 8.9 % (0.0-10.0); %Neutrophils 65.9 % (42.0-75.0); Hemoglobin 10.9 g/dL (12.0-16.0); Mean Corpuscular HGB CONC 31.8 g/dL (32.0-36.0); Mean Corpuscular Hemoglobin 28.6 pg (27.0-31.0); Mean Platelet Volume 6.5 fL (7.4-10.4); Platelet Count 514 thou/uL (130-400); RBC Distribution Width 14.3 % (11.5-14.5); Red Blood Cell (RBC) Count 3.82 mill/uL (4.20-5.40); White Blood Cell (WBC) Count 9.2 thou/uL (4.8-10.8)
[2018-10-19 10:50] LABS: ALT (SGPT) 16 U/L (8-55); AST (SGOT) 15 U/L (5-34); Albumin 3.4 g/dL (3.4-4.8); Alkaline Phosphatase 130 U/L (40-150); Anion Gap 11 mmol/L (10-20); BUN (Urea Nitrogen) 24 mg/dL (9.8-20.1); Bilirubin, Total 0.4 mg/dL (0.2-1.2); Calc. Creatinine Clearance 0 mL/min (70-130); Calcium 9.5 mg/dL (7.8-10.44); Carbon Dioxide 18 mmol/L (23-31); Chloride 110 mmol/L (98-107); Estimated GFR-MDRD 58; Glucose 80 mg/dL (83-110); Lipase 16 U/L (8-78); Potassium 4.1 mmol/L (3.5-5.1); Protein, Total 7.4 g/dL (6.0-8.3); Sodium 135 mmol/L (136-145)
[2018-10-19] MEDS ORDERED: ISOVUE-370 76%-LOCM 1 ML ONE (11:04)
--- NOTE | 2018-10-19 11:26 | CT ---
CT Abdomen Pelvis W Con: 10/19/2018 10:53 AM CLINICAL INFORMATION: Rectal bleeding; history of bladder cancer COMPARISON: PET/CT 04/02/2018 TECHNIQUE: Multiple contiguous axial images were obtained and a CT of the abdomen and pelvis with IV contrast. Oral contrast was administered. Coronal reformats were performed. FINDINGS: Lower Chest: within normal limits. Abdomen: Liver: within normal limits. Bile Ducts: Normal caliber. Gallbladder: No calcified gallstones. Normal caliber wall. Pancreas: within normal limits. Spleen: within normal limits. Adrenals: Bilateral adrenal hyperplasia without focal mass. Kidneys: 1.3 cm right renal cyst. No left renal abnormality. A left ureteral stent is seen with the r enal portion in the mid ureter and a redundant amount of stent in the urinary bladder. Pelvis: Reproductive Organs: Absent. Ureters: Left ureteral stent is in the mid ureter Bladder: A catheter is seen in the urinary bladder as well as a redundant left ureteral stent. Peritoneum: No ascites or free air, no fluid collection. Bowel: Nonspecific thickening of the wall of the rectum. The small bowel is normal in caliber. Mesentery and Retroperitoneum: No enlarged mesenteric or retroperitoneal lymph nodes. Vessels: Atherosclerotic calcifications. Aneurysmal dilatation infrarenal aorta measuring 3.0 cm in s ize. Abdominal Wall: There is a 2.4 cm area of fluid collection subcutaneous tissues below the umbilicus. This also contains a focus of air. There may be a small fascial defect consistent with a hernia. Bones: Degenerative changes in the spine. IMPRESSION: 1. Nonspecific thickening of the wall of the rectum 2. Left ureteral stent has the renal portion of the pigtail catheter in the mid ureter. 3. Severe atherosclerosis and aneurysmal dilatation of the infrarenal aorta 4. Nonspecific fluid collection in the lower abdominal wall
[2018-10-19 13:13] LABS: Bilirubin Negative (Negative); Blood, Urine Large (Negative); Clarity TURBID (Clear); Glucose, Urine (Dipstick) Negative (Negative); Leukocyte Large (Negative); Nitrite Positive (Negative); Protein, Urine (Dipstick) 30 mg/dL (Neg-Trace); Urobilinogen 0.2 mg/dL (0.2-1.0)
[2018-10-19 13:19] LABS: Bacteria/HPF 1+ HPF (None Seen); RBC/HPF GREATER THAN 50-TNTC HPF (0-3); Squamous Epithelial 0-3 HPF (0-3)
[2018-10-19 13:21] LABS: Pathc Cast-AUWi Flag 4.03 (0-2.49)
[2018-10-19 13:34] LABS: Specific Gravity, Urine 1.043 (1.002-1.036)
[2018-10-19 13:35] LABS: Hyaline Casts/LPF NONE SEEN LPF (0-3 Hyaline); Other Casts/LPF None Seen LPF (0-3 Hyaline)
[2018-10-19 16:28] VITALS: BMI 16.4
[2018-10-19] MEDS: Sodium Chloride 0.9% 1,000 ML IV SCH (16:32)
[2018-10-19] MEDS: Pantoprazole 40 MG VIAL IVP SCH (16:33)
[2018-10-19] MEDS ORDERED: GoLYTELY 4,000 ml Bottle PO SCH (16:45)
[2018-10-19] MEDS ORDERED: Nitroglycerin 0.4 MG TAB (25 Tab Bottle) SL PRN (17:25)
[2018-10-19] MEDS: Metoprolol Tartrate 25 MG TAB PO SCH (21:17)
[2018-10-19] MEDS: Famotidine 20 MG TAB PO SCH (21:31)
[2018-10-19] MEDS: Rosuvastatin 10 MG TAB PO SCH (21:31)
--- NOTE | 2018-10-19 21:54 | CON ---
DATE OF CONSULTATION: 10/19/2018 CHIEF COMPLAINT: Blood in the stool. HISTORY OF PRESENT ILLNESS: Ms. Barrera is a 73-year-old woman with a history of bladder cancer who presented to the emergency room by EMS today due to rectal bleeding. She reports that she has had 3 or 4 liquidy red to black stools per day over the last 2 or 3 weeks. She has had no nausea or vomiting with this. No abdominal pain, but she has had some pain in her right arm. She has had no chest pain or shortness of breath. The patient was unable to say what type of cancer she had and was very limited with the ability to provide insight into her history. She apparently had surgery in [place], maybe a month or so ago for the cancer. She has not been treated with any type of chemotherapy. She was last seen at this facility in March 2018 and the history since then is very limited. PAST MEDICAL HISTORY: Coronary artery bypass graft, CHF, stroke, hyperlipidemia, hypertension, diabetes, bladder cancer. PAST SURGICAL HISTORY: Transurethral resection of a bladder tumor twice. She has had another surgery since then in [place], which is not known. She has an indwelling Núñez catheter. She also has a stent in the ureter. She has had hysterectomy, coronary artery bypass graft, and tonsillectomy. FAMILY HISTORY: Negative for GI malignancies. SOCIAL HISTORY: She smokes up to half a pack a day still. She previously drank half a pint to a pint of whiskey per day with her on the weekends. She has not been drinking over the last month. No drugs. ALLERGIES: JEANNINE INHIBITORS, HYDROCODONE. MEDICATIONS PRIOR TO ADMISSION: This is from the ER notes as the patient is unable to give this history directly or self. 1. Famotidine. 2. Metoprolol. 3. Nitroglycerin. 4. Combivent. 5. Crestor. 6. Iron. 7. Plavix. REVIEW OF SYSTEMS: Negative x10 systems reviewed except as stated in the history of present illness. PHYSICAL EXAMINATION: VITAL SIGNS: Blood pressure 112/85, pulse 93, temperature 98. GENERAL: She is in no acute distress. She is oriented to her name and place and year. Her eyes have no scleral icterus. Oropharynx is clear without lesions. No cervical or supraclavicular lymphadenopathy. LUNGS: Clear to auscultation bilaterally. HEART: Regular rate and rhythm without murmur. ABDOMEN: Soft, nondistended, nontender. Bowel sounds are present. RECTAL: Reveals marked tenderness to digital exam with a possible fissure palpated along the posterior anal canal, however, this is not directly visualized. There is an external hemorrhoid anteriorly as well. There is red blood on the glove after digital exam, but no melena. IMPRESSION: 1. Hematochezia. She does have anemia with a hemoglobin of 10.9. The last baseline was from March 2018, was 9.7. She only has scant light red blood on digital exam now along with clinically suspicious for an anal fissure. Given her use of NSAID, she does take ibuprofen a couple of pills a few times per week and the anemia, we should rule out an upper and lower gastrointestinal bleeding source. She had a CT scan that showed thickening of the rectum performed in the emergency room today. I do not palpate a mass digitally. 2. History of bladder cancer and apparent recent surgery in [place] for this with the details unknown. 3. Coronary artery disease and history of cerebrovascular accident, on Plavix. RECOMMENDATIONS: 1. Check iron studies. 2. EGD and colonoscopy tomorrow. 3. She does appear rather frail and has a history of coronary artery disease and significant local bladder cancer. I have no information on the status of her cancer or prognosis regarding that. At this point, we will plan to proceed with endoscopy. Job ID: [id number]
--- NOTE | 2018-10-19 22:30 | HP ---
CHIEF COMPLAINT: GI bleeding. HISTORY OF PRESENT ILLNESS: This patient is a 73-year-old female with a complicated history, which she unfortunately does not know in detail. The patient does have a history of bladder cancer with a transurethral resection of the bladder tumor by Dr. Johnston. Back in March, the patient had an initial attempt at removal, which caused some perforation and was subsequently aborted. She followed up and had 2nd attempt at resection. The patient reports that it was successful. 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 The patient was at some point, seen by Dr. Rg, but she denies ever having any radiation therapy or chemotherapy. She says her last 2 surgeries were in [place] and since the last surgery, she was discharged with a Núñez catheter. She was discharged to inpatient rehab, which she left on her own because she did not want to be there. She has not followed up in [place] and says she will not go back there, no matter what happens and if she cannot be treated in [facility], then it is time for her to go on to be with God. She reports that she does not actually know Dr. David Johnston's name, although he did the procedures on her previously and saw her in his clinic. The patient presented today, because of bright red blood per rectum. The patient reports that she has been having bright red blood with bowel movements for about a month. She says she has 3 bowel movements a day and at least 5 bowel movements per night. She is passing blood with all of her bowel movements. She feels like she has a lot of pain at the rectal area when she needs to have a bowel movement. She reports that she is so weak that she is afraid to get up at times and at night she will sometimes has to have the bowel movement in her diaper and have pads on the bed and just clean it up in the morning. She reports that she has a sensation of needing to void and will have bowel movements with those episodes as well. To relieve the pain, she has been taking [id number] Aleve. The patient also reports pain in her right arm, which is all the way from the shoulder down to her fingertips. It is not hurting her right at the moment, but states it causes her a lot of pain at various times. She says that it has been going on since the last surgery as well. REVIEW OF SYSTEMS: The patient reports that she is only eating very small amounts of food, occasional bread toast or some noodles. She has been losing a significant amount of weight, so she would like to eat more to get her weight back up and says she feels hungry even now. She denies any numbness, weakness or swelling in her extremities. All other systems reviewed, all pertinent positives and negatives noted in the history of present illness. PAST MEDICAL HISTORY: Notable for the bladder cancer, which is high-grade transitional cell carcinoma, COPD, hypertension, hyperlipidemia. PAST SURGICAL HISTORY: Bypass surgery x3 vessels, hysterectomy, CT scan suggests that she has had a neobladder constructed with lumbar surgeries in [place], although she has no idea what the surgeries were for. FAMILY HISTORY: The patient reports her mother had strokes and cancer. Father had stroke. She has a sister with strokes, a brother with strokes and another sister with breast cancer. SOCIAL HISTORY: The patient says she smokes less than half a pack a day. She denies alcohol. She says she used to drink alcohol on the weekends, because she is to [id number] and have a good time. She is . She says her is somewhat disabled. She is full code. Her son Joey or her grandson Joey would be her surrogate decision makers should that become necessary. ALLERGIES: JEANNINE INHIBITORS, HYDROCODONE. CURRENT MEDICATIONS: 1. Ferrous sulfate 325 daily. 2. Pepcid 20 mg at bedtime. 3. Plavix 75 daily. 4. Nitroglycerin 0.4 sublingual p.r.n. 5. Metoprolol 25 b.i.d. 6. Norvasc 5 mg daily. 7. Rosuvastatin 10 mg at bedtime. 8. Naproxen p.r.n. 9. Advil p.r.n. PHYSICAL EXAMINATION: VITAL SIGNS: Temperature is 98.8, pulse 77, respirations 16, O2 saturation 100% on room air, BP 104/51. GENERAL APPEARANCE: Age-appropriate female, in no distress. She is awake, alert, oriented, pleasant, and cooperative. HEENT: PER, no OP lesions. NECK: Supple and symmetric with no lymphadenopathy, JVD, or carotid bruits. HEART: Regular rate and rhythm without murmurs, gallops, or rubs. LUNGS: Clear to auscultation bilaterally with good chest wall expansion and air exchange. ABDOMEN: Soft, nontender, and nondistended. Positive bowel sounds. No masses. No organomegaly. EXTREMITIES: There is no cyanosis, clubbing, or edema. She does have some generalized sarcopenia. She has no tenderness to palpation in her right upper extremity. She has no anatomic abnormalities, inflammation or decreased range of motion. NEUROLOGIC: The patient appears to be intact without any significant focal deficits. PSYCHIATRIC: The patient is appropriate, has normal affect and behavior. IMPRESSION AND PLAN: 1. Apparent lower gastrointestinal bleed, consulting gastroenterology. I have discussed the case with Dr. Davis. We will continue on proton pump inhibitor. He will do a bowel prep tonight, anticipate endoscopy in the morning. The patient has been taking a fair amount of Aleve, which is exacerbating the problem. She is also on home doses of Plavix, presumably because of her prior history of heart disease that will be held for the moment. 2. Acute renal failure. The patient's creatinine is up to 1.2 and her glomerular filtration rate is down to 58. Her typical glomerular filtration rate has been greater than 90 as recently as March. This may represent some acute dehydration from poor p.o. intake. We will give her some IV fluids and continue to monitor. 3. Anemia. The patient has a history of prior anemia from time of her surgeries. Her most recent hemoglobin was 9.7, and this is certainly better than that. She has been on iron for a period time. 4. History of bladder cancer, complicated course, really unclear exactly what has happened, but it sounds like she may have had a referral to [place] and had a neobladder created, although the patient has no idea what the surgery was. She has had a Núñez catheter in since that time and she has a stent on her CT with the pigtail in the middle of the ureter rather than in the renal pelvis. We will consult Dr. Johnston as he has seen the patient previously and somewhat familiar with her. 5. Possible urinary tract infection. Certainly, there was fair amount of blood cells in the urine, which makes it impossible to know. She certainly does not appear to have fever and does not have a white count, we will therefore hold off on any treatment unless Dr. Johnston believes that is otherwise indicated. 6. History of coronary artery disease. We will continue with the beta lalita and statin, holding the Plavix. 7. History of hyperlipidemia. Continue Crestor. 8. Hypertension. Continue amlodipine and metoprolol. 9. Disposition. The patient has decided not to follow up in [place] anymore. She apparently left the inpatient rehab and has not had any followup since her surgery. The patient certainly has complex medical issues and limited understanding. We will consult Palliative Care to help her sort through some of these issues. Job ID: [id number]
[2018-10-20] MEDS: Sodium Chloride 0.9% 1,000 ML IV SCH ×3 (00:36→20:41)
[2018-10-20] MEDS: Pantoprazole 40 MG VIAL IVP SCH (04:08)
[2018-10-20] MEDS ORDERED: Lidocaine Viscous Sol 2% 15 ml UD Cup ONE (09:28)
[2018-10-20] MEDS ORDERED: Promethazine HCl 25 MG/ML VIAL SLOW IVP PRN (10:16)
[2018-10-20] MEDS ORDERED: Promethazine HCl 25 MG/ML VIAL IM PRN (10:16)
[2018-10-20] MEDS ORDERED: Ondansetron HCl/PF 4 MG/2 ML Vial IVP PRN (10:16)
--- NOTE | 2018-10-20 11:31 | OP ---
DATE OF PROCEDURE: 10/20/2018 PROCEDURE PERFORMED: Esophagogastroduodenoscopy with biopsy. Colonoscopy with polypectomy and biopsy. PREOPERATIVE DIAGNOSES: Gastrointestinal bleed, history of bladder cancer, thickened rectum in CT scan. POSTOPERATIVE DIAGNOSES: 1. Mild antral gastritis, possible intestinal metaplasia in the antrum. Multiple biopsies obtained. Otherwise normal EGD. 2. Colonoscopy notable for 4 polyps in ascending colon, 3 to 5 mm, removed by hot snare polypectomy. Two polyps proximal transverse colon, 3 to 5 cm in size, removed by hot snare polypectomy. 3. Sigmoid colitis with some areas of deep ulcerations, some areas of heaped up edematous mucosa. Differential diagnosis includes viral infection or ischemia. It is not clear by her history if she has had radiation in the past, and she does not know if that would be possibility as well. RECOMMENDATIONS: 1. Await histopathology. 2. Advance diet. 3. Continue Pepcid and place her on Protonix orally once daily. ANESTHESIA: TIVA. DESCRIPTION OF PROCEDURE: The patient was informed of the risks, benefits, and possible complications of endoscopy including perforation, reaction to medication, and aspiration. Informed consent was obtained. The patient was brought to endoscopy suite, where she was sedated in gradual fashion. Once she was comfortable, a bite block was placed inside the orifice. The endoscope was advanced through the esophagus, stomach and the second and third portions of the duodenum, and slowly removed. The esophagus was normal. The stomach was notable for some mild erythema and one small 1 mm erosion in the antrum. There was also some change in mucosa that may represent intestinal metaplasia. Multiple biopsies were obtained. Retroflexed views were normal. The duodenum was normal in the third portion. The scope was removed, and the patient was turned to the room. Digital rectal examination was performed, which was normal. The endoscope was advanced into the anal canal through the colon of the cecum. The prep was fair. There were 4 polyps 3 to 5 mm in size in the ascending colon, all removed by her hot snare polypectomy with good hemostasis and submitted to pathology. There were 2 more polyps in the proximal transverse colon, 3 to 5 mm in size, removed by hot snare polypectomy and submitted to Pathology. There was good hemostasis. There was diverticulosis coli throughout the colon. There was an area of colitis from the proximal rectum to about 30 to 40 cm proximal to the anal verge in the sigmoid colon with some areas of deep ulceration with new growth of regenerative mucosa, some areas of erythema and edema. suggestive of ischemic colitis; however, could not rule out viral component, and we will check for this on biopsies. Radiation damage could do this as well, but it does not seem she has had radiation related to her bladder cancer. Retroflexion could not be performed. There was no active bleeding. The scope was removed. The patient tolerated the procedure well, no complications. Job ID: [id number]
[2018-10-20] MEDS: Amlodipine 5 MG TAB PO SCH (11:34)
[2018-10-20] MEDS: Metoprolol Tartrate 25 MG TAB PO SCH ×2 (11:34→20:42)
--- NOTE | 2018-10-20 12:59 | PDOC.PN ---
- Subjective Encounter Start Date: 10/20/18 Encounter Start Time: 12:57 Subjective: 73 y/o with bladder cancer s/p recent surg admitted due to rectal bleeding. -: Had EGD and Colonoscopy earlier today. - Objective Resuscitation Status - Order Detail: 10/19/18 22:00 Resuscitation Status Routine Resuscitation Status: FULL: Full Resuscitation Vital Signs & Weight: Vital Signs (12 hours) Temp Pulse Resp BP BP Pulse Ox 10/20/18 11:34 69 127/60 10/20/18 11:30 97.9 F 70 16 127/60 100 10/20/18 11:15 98.0 F 73 16 131/60 100 10/20/18 08:00 98 10/20/18 07:15 98.4 F 65 16 115/53 L 98 10/20/18 04:43 99.2 F 76 16 111/56 L 100 Weight Admit Weight 81 lb 4.8 oz Weight 81 lb 4.8 oz I&O: 10/19/18 10/20/18 10/21/18 06:59 06:59 06:59 Intake Total 3527 Output Total 950 Balance 2577 Result Diagrams: 10/19/18 10:17 10/19/18 10:17 Phys Exam - Physical Examination chronically ill looking elderly, afebrile anicteric. HEENT: moist MMs Neck: no JVD, supple Respiratory: no rales, no rhonchi fair air entry bilaterally Cardiovascular: RRR soft systolic murmur noted Gastrointestinal: soft, non-tender, no distention, positive bowel sounds Musculoskeletal: no edema muscle wasting noted Neurological: moves all 4 limbs awake and conversational Dx/Plan (1) Acute on chronic blood loss anemia Code(s): D62 - ACUTE POSTHEMORRHAGIC ANEMIA Status: Acute (2) Rectal bleeding Code(s): K62.5 - HEMORRHAGE OF ANUS AND RECTUM Status: Acute (3) Colitis Code(s): K52.9 - NONINFECTIVE GASTROENTERITIS AND COLITIS, UNSPECIFIED Status : Acute (4) Colon polyps Code(s): K63.5 - POLYP OF COLON Status: Acute (5) Cachexia Code(s): R64 - CACHEXIA Status: Acute (6) Diverticulosis Code(s): K57.90 - DVRTCLOS OF INTEST, PART UNSP, W/O PERF OR ABSCESS W/O BLEED Status: Acute (7) Chronic systolic CHF (congestive heart failure) Code(s): I50.22 - CHRONIC SYSTOLIC (CONGESTIVE) HEART FAILURE Status: Acute (8) Diabetes mellitus Code(s): E11.9 - TYPE 2 DIABETES MELLITUS WITHOUT COMPLICATIONS Status: Acute (9) Bladder cancer Status: Chronic Comment: s/p TURP 03/20/18 (10) CAD (coronary artery disease) Code(s): I25.10 - ATHSCL HEART DISEASE OF [place] CORONARY ARTERY W/O ANG PCTRS Status: Chronic - Plan Get repeat CBC, BMP. -: Advance diet as per GI. -: Await pathology report of polyps and sigmoid biopsy -: Monitor H/H and transfuse as needed * .
[2018-10-20 13:53] LABS: #Eosinphils 0.1 thou/uL (0.0-0.7); #Lymphocytes 1.4 thou/uL (1.20-3.40); #Monocytes 0.8 thou/uL (0.11-0.59); #Neutrophils 8.8 thou/uL (1.40-6.50); %Basophils 0.3 % (0.0-1.0); %Eosinophils 0.7 % (0.0-10.0); %Lymphocytes 12.6 % (21.0-51.0); %Monocytes 7.2 % (0.0-10.0); %Neutrophils 79.2 % (42.0-75.0); Mean Corpuscular HGB CONC 32.1 g/dL (32.0-36.0); Mean Corpuscular Hemoglobin 28.6 pg (27.0-31.0); Mean Corpuscular Volume 89.2 fL (78.0-98.0); Mean Platelet Volume 6.6 fL (7.4-10.4); Platelet Count 398 thou/uL (130-400); RBC Distribution Width 14.4 % (11.5-14.5); White Blood Cell (WBC) Count 11.1 thou/uL (4.8-10.8)
[2018-10-20 13:56] LABS: Anion Gap 12 mmol/L (10-20); BUN (Urea Nitrogen) 14 mg/dL (9.8-20.1); Calc. Creatinine Clearance 36 mL/min (70-130); Calcium 8.2 mg/dL (7.8-10.44); Carbon Dioxide 15 mmol/L (23-31); Chloride 117 mmol/L (98-107); Estimated GFR-MDRD 84; Glucose 89 mg/dL (83-110); Iron 15 ug/dL (50-170); Iron Binding Capacity, Total 108 mcg/dL (265-497); Potassium 3.7 mmol/L (3.5-5.1); Sodium 140 mmol/L (136-145)
[2018-10-20] MEDS: Famotidine 20 MG TAB PO SCH (20:42)
[2018-10-20] MEDS: Rosuvastatin 10 MG TAB PO SCH (20:42)
[2018-10-21] MEDS: Sodium Chloride 0.9% 1,000 ML IV SCH (00:23)
[2018-10-21 03:44] LABS: #Eosinphils 0.2 thou/uL (0.0-0.7); #Lymphocytes 1.6 thou/uL (1.20-3.40); %Basophils 0.2 % (0.0-1.0); %Eosinophils 1.8 % (0.0-10.0); %Lymphocytes 18.1 % (21.0-51.0); %Monocytes 11.7 % (0.0-10.0); %Neutrophils 68.2 % (42.0-75.0); Hemoglobin 7.8 g/dL (12.0-16.0); Mean Corpuscular HGB CONC 31.3 g/dL (32.0-36.0); Mean Corpuscular Hemoglobin 28.2 pg (27.0-31.0); Mean Corpuscular Volume 90.1 fL (78.0-98.0); Mean Platelet Volume 6.6 fL (7.4-10.4); Platelet Count 366 thou/uL (130-400); RBC Distribution Width 14.3 % (11.5-14.5); Red Blood Cell (RBC) Count 2.77 mill/uL (4.20-5.40); White Blood Cell (WBC) Count 8.9 thou/uL (4.8-10.8)
[2018-10-21] MEDS ORDERED: Ondansetron ODT 4 MG TAB PO PRN (05:51)
[2018-10-21] MEDS ORDERED: Loratadine 10 MG TAB PO PRN (05:51)
[2018-10-21] MEDS ORDERED: Sodium Chloride 0.65% Nasal 44 ML BOT EA NARE PRN (05:51)
[2018-10-21] MEDS ORDERED: Diabetic Tussin 200 MG/10 ML UDCUP PO PRN (05:51)
[2018-10-21] MEDS ORDERED: Senokot S 8.6-50 MG TAB PO PRN (05:51)
[2018-10-21] MEDS ORDERED: Bisacodyl 10 MG SUPP PR PRN (05:51)
[2018-10-21] MEDS ORDERED: Artificial Tear Sol 15 ML BOT EA EYE PRN (05:51)
[2018-10-21] MEDS ORDERED: hydrALAZINE 20 MG/ML VIAL SLOW IVP PRN (05:51)
[2018-10-21] MEDS ORDERED: Cepastat Lozenges 1 LOZ PO PRN (05:51)
[2018-10-21] MEDS ORDERED: Calcium Carbonate 500 MG ChewTAB PO PRN (05:51)
[2018-10-21] MEDS ORDERED: Zolpidem Tartrate 5 MG TAB PO PRN (05:51)
[2018-10-21] MEDS ORDERED: Ondansetron PF 4 MG/2 ML Vial IVP PRN (05:51)
[2018-10-21] MEDS: Dextrose 5 %-0.45 % NaCl 1,000 ML IV SCH (06:23)
--- NOTE | 2018-10-21 09:29 | CON ---
DATE OF CONSULTATION: 10/20/2018 REASON FOR CONSULTATION: Possible misplaced ureteral stent. HISTORY OF PRESENT ILLNESS: Ms. Barrera is a 73-year-old black female, who is well known to me for a long history of multiple comorbidities including muscle invasive bladder cancer. She had extensive bladder cancer, which was too extensive to resect after 2 TURBTs locally, I sent her to [facility], Dr. Mejia, who attempted further resection, but deemed her unresectable due to the extent of her cancer. She ultimately underwent a cystectomy with neobladder construction at [facility] approximately 1 month ago. She had ureteral stents placed at that time and a Núñez catheter and was sent back to me for postoperative care. On my last office visit with her, she had only one of her ureteral stents remaining. I am not sure what happened to the right ureteral stent. The left stent was still in place. Before getting to her catheter, I elected to perform a cystogram to ensure that she did not have any leak. She had this done last week, which demonstrated leak at the urethrovesical anastomosis where the neobladder is connected to the mentasta urethra. Due to that, I have elected to leave the catheter in. Subsequently, she ended up with a GI bleed and was hospitalized on this admission for that reason. A CT scan done for the GI bleed demonstrated that the stent on the left has migrated down so that the proximal coil is now in the mid-ureter with redundancy within the neobladder. The Núñez catheter is still in place, draining urine. I was consulted for further assistance. On my discussion with the patient, she is not having any bladder pain or significant abdominal pain. The catheter has been draining without any significant problems. She has not had any hematuria. She denies any current fevers. ALLERGIES: 1. JEANNINE INHIBITORS. 2. HYDROCODONE. HOME MEDICATIONS: 1. Iron. 2. Pepcid. 3. Plavix. 4. Nitroglycerin. 5. Metoprolol. 6. Norvasc. 7. Rosuvastatin. 8. Naproxen. 9. Advil. PAST MEDICAL HISTORY: 1. Bladder cancer. 2. COPD. 3. Hypertension. 4. Hyperlipidemia. 5. History of TIA. 6. Coronary artery disease. 7. CHF. PAST SURGICAL HISTORY: 1. Three-vessel CABG. 2. Hysterectomy. 3. TURBT x3. 4. Cystectomy with neobladder construction. FAMILY HISTORY: Significant for CVA and cancers, unspecified. SOCIAL HISTORY: The patient smokes less than half a pack a day. She denies alcohol abuse. Denies any illicit drugs. She is . Her is disabled. She is a primary conservation technician. She does have additional family. REVIEW OF SYSTEMS: A 12-point review of systems is reviewed and is negative except for what was commented on the HPI and additionally reported below. She states that she has significant weakness and malaise. Her memory has gotten very poor. She reports the previously mentioned GI bleed, but no chest pain or shortness of breath. Remainder of 12-point review of systems was reviewed and are negative. PHYSICAL EXAMINATION: VITAL SIGNS: Temperature 99.2, pulse 76, respirations 16, blood pressure 124/59 , and saturations 100% on room air. GENERAL: No apparent distress. Emaciated, thin, cachectic, is answering questions appropriately. Appears stated age. HEENT: Normocephalic and atraumatic. Pupils are symmetric and round. Trachea is midline. Moist mucous membranes. CARDIOVASCULAR: Regular rate and rhythm. Normal S1 and S2. Symmetric pulses. CHEST: No increased work of breathing. Symmetric expansion of the lungs. ABDOMEN: Soft. Mildly tender to palpation. Nondistended. Well-healed midline incision. : Núñez catheter in place with clear urine with some sediment. EXTREMITIES: No clubbing, cyanosis, or edema. MUSCULOSKELETAL: No joint deformities or joint erythema noted. Diffuse generalized weakness. Range of motion appears intact. NEUROLOGIC: Cranial nerves 2 through 12 are grossly intact. No focal motor or sensory deficits identified. SKIN: Warm, dry, poor turgor. No rashes or lesions. PSYCHIATRIC: Alert and oriented x3. Somewhat withdrawn, appears depressed. LABORATORY EVALUATION: On laboratory evaluation, the full set of labs in the [facility] system which I have reviewed. Of note, the patient's white count of 11.1 with hemoglobin of 8, and platelet count 398. Creatinine is 0.81. Albumin 3.4. UA demonstrates nitrite positive, large blood, greater than 50 red cells, greater than 50 white cells, large leukocyte esterase, 1+ bacteria. IMAGING DATA: CT done on October 19 shows nonspecific thickening of the wall of the rectum. Left ureteral stent had migrated, where the renal portion of the pigtail is now in the mid-ureter with redundancy in the neobladder. Severe atherosclerosis and aneurysmal dilation of the infrarenal aorta. Nonspecific fluid collection in the lower abdominal wall. ASSESSMENT AND PLAN: A 73-year-old black female with history of bladder cancer with history of neobladder construction with significant malnutrition and has extremely poor healing at this point. This is likely caused her anastomosis not to have completely healed. The ureteral stent is still crossing the anastomosis between the ureter and the neobladder and as long as it does, this would be serving its purpose, I would not like to recommend any attempt to pass any instrumentation across her anastomosis at this poitn as a leak could cause significant peritonitis. I would recommend leaving this for stent removal at a later date. Nutrition is to be a primary concern from my standpoint for her proper healing. I would recommend high-protein diet. If she is not eating at all, TPN can be considered. I have spoken with Dr. Davis about this and he will take this into consideration. The patient is currently being assessed for gastrointestinal bleed and this issue will probably need to be addressed first and foremost, I will also speak with Dr. Mejia in [place] to see if he has any further recommendations. I will continue to follow along on this admission. Job ID: [id number] [facility]
[2018-10-21] MEDS: Amlodipine 5 MG TAB PO SCH (09:39)
[2018-10-21] MEDS: Metoprolol Tartrate 25 MG TAB PO SCH ×2 (09:39→21:20)
--- NOTE | 2018-10-21 12:15 | PQF ---
Date: 10-21-18 ATTN: DR. KAREL PACE Please exercise your independent, professional judgment in responding to the clarification form. Clinical indicators are provided on the bottom of this form for your review Please check appropriate box(s): [x ] Protein Calorie Malnutrition: [ ] Mild [ ] Moderate [ ] Severe [ ] Other Malnutrition (please specify) __ [ ] Other diagnosis [ ] Unable to determine In addition, please specify: Present on Admission (POA): [ x ] Yes [ ] No [ ] Unable to determine CLINICAL INDICATORS - SIGNS / SYMPTOMS / LABS BMI: 16.[address] RUTH 10-20-18: SIGNIFICANT MALNUTRITION AND HAS EXTREMELY POOR HEALING AT THIS POINT, EMACIATED, THIN, CACHETIC H&P: REPOTS THAT SHE IS ONLY EATING VERY SMALL AMOUNTS OF FOOD, OCCASIONAL BREAD TOAST OR SOME NOODLES, SHE HAS BEEN LOSING A SIGNIFICANT AMOUNT OF WEIGHT. REDUCING SYSTEM OPERATOR CONSULT 10-20-18: WT LOSS, POOR PO INTAKE, DIARRHEA AND LOW BMI 16.4 RISK FACTORS: REDUCING SYSTEM OPERATOR CONSULT 10-20-18: WT LOSS, POOR PO INTAKE, DIARRHEA AND LOW BMI 16.4 H&P: HX BLADDER CA, SMOKER, DM, CHF, HTN TREATMENT: CONSULT DR. BONE 10-20-18: I WOULD RECOMMEND HIGH PROTEIN DIET. REDUCING SYSTEM OPERATOR CONSULT 10-20-18: 1) Continue current Full Liquid diet. 2) When medically able, recommend ADAT to Regular diet to promote adequate intake. Recommend heart healthy low sodium diet exterminator. 3) Recommend Ensure Enlive TID. RD will order Mighty Shakes TID for now. 4) Provide anti-emetic PRN. 5) Monitor renal function. Moderate Malnutrition (in acute illness) Energy Intake: <75% of estimated energy requirement for > 7 days Weight Loss: 1-2%/1 week; 5%/ 1 month; 7.5%/3 months Other: mild body fat loss; mild muscle mass loss; mild fluid accumulation; Severe Malnutrition (in acute illness) Energy Intake: < 50% of estimated energy requirement for > 5 days Weight Loss: >1-2%/1 week; >5%/1 month; >7.5%/3 months Other: moderate body fat loss; moderate muscle mass loss; moderate- severe fluid accumulation; measurably reduced economic research assistant strength Moderate Malnutrition (in chronic illness) Energy Intake: <75% of estimated energy requirement for >1 month Weight Loss: 5%/1 month; 7.5%/3 months; 10%/6 months; 20%/1 year Other: mild body fat loss; mild muscle mass loss; mild fluid accumulation Severe Malnutrition (in chronic illness) Energy Intake: <75% of estimated energy requirement for >1 month Weight Loss: >5%/1 month; >7.5%/3 months; >10%/6 months; >20%/1 year Other: severe body fat loss; severe muscle mass loss; severe fluid accumulation ; measurably reduced economic research assistant strength (This form is maintained as a part of the permanent medical record) 2014 [employer] All Rights Reserved [email or web address] Office: [phone] [facility] CENTER[facility]is Daniel
--- NOTE | 2018-10-21 12:37 | PQF ---
DATE: 10-21-18 ATTN: DR. KAREL PACE Please exercise your independent, professional judgment in responding to the clarification form. Clinical indicators are provided on the bottom of this form for your review Please check appropriate box(s): [ ] UTI please specify if due to or related to (as applicable): [ ] Indwelling catheter [ ] Unable to determine etiology [ x ] Contaminated urine specimen without UTI [ ] Other diagnosis [ ] Unable to determine In addition, please specify: Present on Admission (POA): [ x ] Yes [ ] No [ ] Unable to determine For continuity of documentation, please document condition throughout progress notes and discharge summary. Thank You. CLINICAL INDICATORS - SIGNS / SYMPTOMS / LABS URINE: 10-19-18: URINE PROTEIN: 30 H URINE BLOOD: LARGE H URINE NITRITE: POSITIVE H UR LEUKOCYTE ESTERASE: LARGE H URINE WBC: GREATER THAN 50- TNTC H URINE BACTERIA: 1+ H H&P: HER LAST 2 SURGERIES WERE IN CUMMING AND SINCE THE LAST SURGERY, SHE WAS D/C WITH A REYES CATHETER. POSSIBLE URINARY TRACT INFECTION RISK FACTORS: H&P: HER LAST 2 SURGERIES WERE IN CUMMING AND SINCE THE LAST SURGERY, SHE WAS D/C WITH A REYES CATHETER. POSSIBLE URINARY TRACT INFECTION TREATMENT: UROLOGY CONSULT 10-20-18 ER: NS IVF MAR: NS IVF (This form is maintained as a part of the permanent medical record) 2014 [employer] All Rights Reserved [email or web address] Office: [phone] [facility]ENTER[facility] Daniel
--- NOTE | 2018-10-21 13:48 | PDOC.PN ---
- Subjective Encounter Start Date: 10/21/18 Encounter Start Time: 07:00 -: old records requested/rev Patient seen and examined. No new complaints. No overnight events - Objective Resuscitation Status - Order Detail: 10/19/18 22:00 Resuscitation Status Routine Resuscitation Status: FULL: Full Resuscitation MAR Reviewed: Yes Vital Signs & Weight: Vital Signs (12 hours) Temp Pulse Resp BP BP BP Pulse Ox 10/21/18 12:20 98.9 F 10/21/18 11:25 99.6 F 70 18 107/52 L 100 10/21/18 09:39 68 98/64 10/21/18 08:00 99 10/21/18 07:45 99.1 F 68 14 98/64 99 10/21/18 04:46 99.1 F 61 16 96/55 L 98 Weight Admit Weight 81 lb 4.8 oz Weight 81 lb 4.8 oz I&O: 10/20/18 10/21/18 10/22/18 06:59 06:59 06:59 Intake Total 3527 2000 Output Total 950 1100 Balance 2577 900 Result Diagrams: 10/21/18 03:36 10/20/18 13:24 Phys Exam - Physical Examination Constitutional: NAD cachectic HEENT: PERRLA, moist MMs, sclera anicteric Neck: no JVD, supple Respiratory: no wheezing, no rales, no rhonchi Cardiovascular: RRR, no significant murmur, no rub Gastrointestinal: soft, non-tender, no distention, positive bowel sounds Musculoskeletal: no edema, pulses present Neurological: non-focal, moves all 4 limbs Lymphatic: no nodes Psychiatric: normal affect, A&O x 3 Skin: no rash, normal turgor Dx/Plan (1) Acute on chronic blood loss anemia Code(s): D62 - ACUTE POSTHEMORRHAGIC ANEMIA Status: Acute (2) Cachexia Code(s): R64 - CACHEXIA Status: Acute Comment: with severe protein calory malnutrition (3) Colitis Code(s): K52.9 - NONINFECTIVE GASTROENTERITIS AND COLITIS, UNSPECIFIED Status : Acute Comment: sigmoid colitis (4) Colon polyps Code(s): K63.5 - POLYP OF COLON Status: Acute Comment: s/p snare polypectomy (5) Rectal bleeding Code(s): K62.5 - HEMORRHAGE OF ANUS AND RECTUM Status: Acute (6) Bladder cancer Status: Chronic Comment: s/p TURP 03/20/18 (7) CAD (coronary artery disease) Code(s): I25.10 - ATHSCL HEART DISEASE OF [place] CORONARY ARTERY W/O ANG PCTRS Status: Chronic (8) Carotid stenosis, left Code(s): I65.22 - OCCLUSION AND STENOSIS OF LEFT CAROTID ARTERY Status: Chronic Comment: s/p R CEA (9) Chronic systolic CHF (congestive heart failure) Code(s): I50.22 - CHRONIC SYSTOLIC (CONGESTIVE) HEART FAILURE Status: Chronic Comment: ACC/AHA stage C (10) Diverticulosis Code(s): K57.90 - DVRTCLOS OF INTEST, PART UNSP, W/O PERF OR ABSCESS W/O BLEED Status: Chronic (11) H/O TIA (transient ischemic attack) and stroke Code(s): Z86.73 - PRSNL HX OF TIA (TIA), AND CEREB INFRC W/O RESID DEFICITS Status: Chronic (12) HTN (hypertension) Code(s): I10 - ESSENTIAL (PRIMARY) HYPERTENSION Status: Chronic - Plan cont current plan of care, social science research assistant * advance diet as tolerated * repeat labs tomorrow * casey saw operator for discharge planning * GI following * nutritional support * prognosis is poor * palliative care consult * medication reviewed as below * symptomatic treatment * change IVF Dex 1/2 NS. * hold BP meds for SBP <120 Review of Systems - Review of Systems Constitutional: weakness. negative: fever, chills, sweats, malaise, other Respiratory: negative: Cough, Dry, Shortness of Breath, Hemoptysis, SOB with Excertion, Pleuritic Pain, Sputum, Wheezing Cardiovascular: negative: chest pain, palpitations, orthopnea, paroxysmal nocturnal dyspnea, edema, light headedness, other Gastrointestinal: negative: Nausea, Vomiting, Abdominal Pain, Diarrhea, Constipation, Melena, Hematochezia, Other Genitourinary: negative: Dysuria, Frequency, Incontinence, Hematuria, Retention , Other Musculoskeletal: negative: Neck Pain, Shoulder Pain, Arm Pain, Back Pain, Hand Pain, Leg Pain, Foot Pain, Other - Medications/Allergies Allergies/Adverse Reactions: Allergies Allergy/AdvReac Type Severity Reaction Status Date / Time JEANNINE Inhibitors Allergy Verified 10/19/18 16:02 hydrocodone Allergy Verified 10/19/18 16:02 Medications: Current Medications Acetaminophen (Tylenol) 650 mg PO Q6H PRN PRN Reason: Fever>101/(Mi/Mod/Sev) Pain Amlodipine Besylate (Norvasc) 5 mg PO DAILY [facility] Last Admin: 10/21/18 09:39 Dose: Not Given Artificial Tears (Liquitears 15ml Bottle) 2 drop EA EYE PRN PRN PRN Reason: Dry Eyes Bisacodyl (Dulcolax) 10 mg [place] DAILYPRN PRN PRN Reason: Constipation Calcium Carbonate (Tums) 1,000 mg PO Q4H PRN PRN Reason: Heartburn or Indigestion Famotidine (Pepcid) 20 mg PO HS [facility] Last Admin: 10/20/18 20:42 Dose: 20 mg Guaifenesin (Robitussin Sf) 200 mg PO Q4H PRN PRN Reason: Cough Hydralazine HCl (Apresoline) 10 mg SLOW IVP Q4H PRN PRN Reason: SBP > 180 and HR < 70 Dextrose/Sodium Chloride (D5 1/2 Ns) 1,000 mls @ 50 mls/hr IV .Q20H [facility] Last Admin: 10/21/18 06:23 Dose: 1,000 mls Loperamide HCl (Imodium) 2 mg PO PRN PRN PRN Reason: Diarrhea/Loose Stools Loratadine (Claritin) 10 mg PO DAILYPRN PRN PRN Reason: Sinus Symptoms Metoprolol Tartrate (Lopressor) 25 mg PO BID [facility] Last Admin: 10/21/18 09:39 Dose: Not Given Nitroglycerin (Nitrostat) 0.4 mg SL PRN PRN PRN Reason: Chest Pain Ondansetron HCl (Zofran Odt) 4 mg PO Q6H PRN PRN Reason: Nausea/Vomiting Ondansetron HCl (Zofran) 4 mg IVP Q6H PRN PRN Reason: Nausea/Vomiting Pantoprazole Sodium (Protonix) 40 mg PO DAILY [facility] Last Admin: 10/21/18 09:38 Dose: 40 mg Rosuvastatin Calcium (Crestor) 10 mg PO HS [facility] Last Admin: 10/20/18 20:42 Dose: 10 mg Senna/Docusate Sodium (Senokot S) 2 tab PO BID PRN PRN Reason: Constipation Sodium Chloride ([place] Nas[place] 0.65%) 0 ml EA NARE QIDPRN PRN PRN Reason: Nasal Congestion Throat Lozenges (Cepastat Lozenges) 1 nasrin PO Q2H PRN PRN Reason: Sore Throat Zolpidem Tartrate (Ambien) 5 mg PO HSPRN PRN PRN Reason: Insomnia
--- NOTE | 2018-10-21 15:12 | PRG ---
DATE OF SERVICE: 10/21/2018 SUBJECTIVE: Ms. Barrera still has some lower abdominal pain. She states that she ate tuna fish today and drank a coffee. OBJECTIVE: VITAL SIGNS: Temperature 99.6, pulse 70, blood pressure 107/52. GENERAL: She is in no acute distress. She is awake and alert. LUNGS: Clear to auscultation bilaterally. HEART: Regular rate and rhythm. ABDOMEN: Soft. Mild tenderness in the lower abdomen without guarding. Bowel sounds are present. EXTREMITIES: No lower extremity edema. IMPRESSION: 1. Ulcerations of the distal colon, likely secondary to ischemia. Stercoral ulcerations or viral ulcerations are possible. Stains have been sent for viral stains. 2. Anemia secondary to chronic disease and acute blood loss. Her hemoglobin is stabilized. I suspect the baseline hemoglobin is actually a little bit lower and that she came in dehydrated. She is not having significant overt bleeding now. She has a history of ischemic event or transient ischemic attack when her Plavix has been held in the past. I would think that she should be able to restart her Plavix at this point as long as she is holding the NSAIDs. 3. Antral gastritis. She is on pantoprazole now, and we should be able to hold the famotidine at this point. 4. Protein-calorie malnutrition. Her albumin is 3.4 on admission. I would recheck with the morning labs. She states that she is taking solid food by mouth, but she is concerned that the supplements have caused diarrhea in the past. We may be able to start a lower osmolality supplement and work on the high-protein diet for her. Dietitian has recommended Ensure Enlive 3 times daily along with a heart-healthy diet. RECOMMENDATIONS: 1. Advance her diet. 2. She can restart Plavix today or tomorrow from a GI standpoint. 3. We will continue to follow. Job ID: [id number]
[2018-10-21] MEDS: Acetaminophen 325 MG TAB PO PRN (16:16)
[2018-10-21] MEDS: Rosuvastatin 10 MG TAB PO SCH (21:20)
[2018-10-21] MEDS: Cefdinir 300 MG CAP PO SCH (21:20)
[2018-10-22] MEDS: Dextrose 5 %-0.45 % NaCl 1,000 ML IV SCH (01:12)
[2018-10-22 04:00] LABS: #Eosinphils 0.2 thou/uL (0.0-0.7); #Lymphocytes 1.4 thou/uL (1.20-3.40); #Monocytes 1.2 thou/uL (0.11-0.59); #Neutrophils 7.7 thou/uL (1.40-6.50); %Basophils 0.1 % (0.0-1.0); %Eosinophils 2.1 % (0.0-10.0); %Neutrophils 73.7 % (42.0-75.0); Hemoglobin 7.9 g/dL (12.0-16.0); Mean Corpuscular HGB CONC 32.8 g/dL (32.0-36.0); Mean Corpuscular Hemoglobin 28.9 pg (27.0-31.0); Mean Corpuscular Volume 87.9 fL (78.0-98.0); Mean Platelet Volume 6.7 fL (7.4-10.4); Platelet Count 369 thou/uL (130-400); RBC Distribution Width 14.2 % (11.5-14.5); Red Blood Cell (RBC) Count 2.73 mill/uL (4.20-5.40); White Blood Cell (WBC) Count 10.5 thou/uL (4.8-10.8)
[2018-10-22 04:17] LABS: Anion Gap 12 mmol/L (10-20); BUN (Urea Nitrogen) 8 mg/dL (9.8-20.1); Calc. Creatinine Clearance 41 mL/min (70-130); Carbon Dioxide 14 mmol/L (23-31); Chloride 114 mmol/L (98-107); Estimated GFR-MDRD Greater than 90; Glucose 89 mg/dL (83-110); Sodium 137 mmol/L (136-145)
[2018-10-22] MEDS: Acetaminophen 325 MG TAB PO PRN ×2 (04:20→13:10)
[2018-10-22] MEDS ORDERED: Potassium Chloride 20 MEQ TAB PO SCH (06:45)
[2018-10-22 07:51] LABS: Magnesium 1.2 mg/dL (1.6-2.6)
[2018-10-22] MEDS: Cefdinir 300 MG CAP PO SCH ×2 (10:27→21:08)
[2018-10-22] MEDS: metroNIDAZOLE 250 MG TAB PO SCH ×3 (10:27→21:09)
[2018-10-22] MEDS: Amlodipine 5 MG TAB PO SCH (10:27)
[2018-10-22] MEDS: Metoprolol Tartrate 25 MG TAB PO SCH ×2 (10:28→21:10)
--- NOTE | 2018-10-22 11:18 | PDOC.PN ---
- Subjective Encounter Start Date: 10/22/18 Encounter Start Time: 07:00 pt refusing IV line, she is very weak, has diarrhoea, has fever - Objective Resuscitation Status - Order Detail: 10/19/18 22:00 Resuscitation Status Routine Resuscitation Status: FULL: Full Resuscitation MAR Reviewed: Yes Vital Signs & Weight: Vital Signs (12 hours) Temp Pulse Resp BP BP Pulse Ox 10/22/18 10:27 75 103/55 L 10/22/18 08:00 98.4 F 75 16 103/55 L 98 10/22/18 05:42 98.9 F 10/22/18 04:00 100.3 F H 10/21/18 23:32 99.3 F 68 16 105/52 L 99 Weight Admit Weight 81 lb 4.8 oz Weight 81 lb 4.8 oz I&O: 10/21/18 10/22/18 10/23/18 06:59 06:59 06:59 Intake Total 2000 Output Total 1100 800 Balance 900 -800 Result Diagrams: 10/22/18 03:36 10/22/18 03:36 Phys Exam - Physical Examination Constitutional: NAD cachectic HEENT: PERRLA, moist MMs, sclera anicteric Neck: no JVD, supple Respiratory: no wheezing, no rales, no rhonchi Cardiovascular: RRR, no significant murmur, no rub Gastrointestinal: soft, non-tender, no distention, positive bowel sounds small+ Musculoskeletal: no edema, pulses present Neurological: non-focal Lymphatic: no nodes Psychiatric: normal affect Skin: no rash, normal turgor Dx/Plan (1) Acute on chronic blood loss anemia Code(s): D62 - ACUTE POSTHEMORRHAGIC ANEMIA Status: Acute (2) Cachexia Code(s): R64 - CACHEXIA Status: Acute Comment: with severe protein calory malnutrition (3) Colitis Code(s): K52.9 - NONINFECTIVE GASTROENTERITIS AND COLITIS, UNSPECIFIED Status : Acute Comment: sigmoid colitis (4) Colon polyps Code(s): K63.5 - POLYP OF COLON Status: Acute Comment: s/p snare polypectomy (5) Rectal bleeding Code(s): K62.5 - HEMORRHAGE OF ANUS AND RECTUM Status: Acute (6) Bladder cancer Status: Chronic Comment: s/p TURP 03/20/18 (7) CAD (coronary artery disease) Code(s): I25.10 - ATHSCL HEART DISEASE OF [place] CORONARY ARTERY W/O ANG PCTRS Status: Chronic (8) Carotid stenosis, left Code(s): I65.22 - OCCLUSION AND STENOSIS OF LEFT CAROTID ARTERY Status: Chronic Comment: s/p R CEA (9) Chronic systolic CHF (congestive heart failure) Code(s): I50.22 - CHRONIC SYSTOLIC (CONGESTIVE) HEART FAILURE Status: Chronic Comment: ACC/AHA stage C (10) Diverticulosis Code(s): K57.90 - DVRTCLOS OF INTEST, PART UNSP, W/O PERF OR ABSCESS W/O BLEED Status: Chronic (11) H/O TIA (transient ischemic attack) and stroke Code(s): Z86.73 - PRSNL HX OF TIA (TIA), AND CEREB INFRC W/O RESID DEFICITS Status: Chronic (12) HTN (hypertension) Code(s): I10 - ESSENTIAL (PRIMARY) HYPERTENSION Status: Chronic - Plan cont current plan of care, plan discussed w/ family, small catheter, continue antibiotics, PT/OT, criminal justice social worker * will replace potassium phosphate (Kphos) * will replace magneisum oxide * continue omnicef and flagyl * check stool for C-diff * I spoke with son and he is caregiver, they want her to go home on discharge * will repeat labs tomorrow * continue small on discharge as per urology * medication reviewed as below * symptomatic treatment. * nutritional support * discharge planning * [place] [facility] prognosis is poor Review of Systems - Review of Systems Constitutional: weakness, malaise. negative: fever, chills, sweats, other ENT: negative: Ear Pain, Ear Discharge, Nose Pain, Nose Discharge, Nose Congestion, Mouth Pain, Mouth Swelling, Throat Pain, Throat Swelling, Other Respiratory: negative: Cough, Dry, Shortness of Breath, Hemoptysis, SOB with Excertion, Pleuritic Pain, Sputum, Wheezing Cardiovascular: negative: chest pain, palpitations, orthopnea, paroxysmal nocturnal dyspnea, edema, light headedness, other Gastrointestinal: Diarrhea. negative: Nausea, Vomiting, Abdominal Pain, Constipation, Melena, Hematochezia, Other Genitourinary: negative: Dysuria, Frequency, Incontinence, Hematuria, Retention , Other Musculoskeletal: negative: Neck Pain, Shoulder Pain, Arm Pain, Back Pain, Hand Pain, Leg Pain, Foot Pain, Other - Medications/Allergies Allergies/Adverse Reactions: Allergies Allergy/AdvReac Type Severity Reaction Status Date / Time JEANNINE Inhibitors Allergy Verified 10/19/18 16:02 hydrocodone Allergy Verified 10/19/18 16:02 Medications: Current Medications Acetaminophen (Tylenol) 650 mg PO Q6H PRN PRN Reason: Fever>101/(Mi/Mod/Sev) Pain Last Admin: 10/22/18 04:20 Dose: 650 mg Amlodipine Besylate (Norvasc) 5 mg PO DAILY [facility] Last Admin: 10/22/18 10:27 Dose: Not Given Artificial Tears (Liquitears 15ml Bottle) 2 drop EA EYE PRN PRN PRN Reason: Dry Eyes Bisacodyl (Dulcolax) 10 mg [place] DAILYPRN PRN PRN Reason: Constipation Calcium Carbonate (Tums) 1,000 mg PO Q4H PRN PRN Reason: Heartburn or Indigestion Cefdinir (Omnicef) 300 mg PO BID [facility] Last Admin: 10/22/18 10:27 Dose: 300 mg Guaifenesin (Robitussin Sf) 200 mg PO Q4H PRN PRN Reason: Cough Hydralazine HCl (Apresoline) 10 mg SLOW IVP Q4H PRN PRN Reason: SBP > 180 and HR < 70 Dextrose/Sodium Chloride (D5 1/2 Ns) 1,000 mls @ 50 mls/hr IV .Q20H [facility] Last Admin: 10/22/18 01:12 Dose: Not Given Loperamide HCl (Imodium) 2 mg PO PRN PRN PRN Reason: Diarrhea/Loose Stools Loratadine (Claritin) 10 mg PO DAILYPRN PRN PRN Reason: Sinus Symptoms Magnesium Oxide (Magnesium Oxide) 400 mg PO BID [facility] Metoprolol Tartrate (Lopressor) 25 mg PO BID [facility] Last Admin: 10/22/18 10:28 Dose: Not Given Metronidazole (Flagyl) 250 mg PO TID [facility] Last Admin: 10/22/18 10:27 Dose: 250 mg Nitroglycerin (Nitrostat) 0.4 mg SL PRN PRN PRN Reason: Chest Pain Ondansetron HCl (Zofran Odt) 4 mg PO Q6H PRN PRN Reason: Nausea/Vomiting Ondansetron HCl (Zofran) 4 mg IVP Q6H PRN PRN Reason: Nausea/Vomiting Pantoprazole Sodium (Protonix) 40 mg PO DAILY [facility] Last Admin: 10/22/18 10:27 Dose: 40 mg Phosphorus (Kphos Neutral) 500 mg PO QID-[facility] Rosuvastatin Calcium (Crestor) 10 mg PO HS [facility] Last Admin: 10/21/18 21:20 Dose: 10 mg Senna/Docusate Sodium (Senokot S) 2 tab PO BID PRN PRN Reason: Constipation Sodium Chloride ([place] Nasal [place] 0.65%) 0 ml EA NARE QIDPRN PRN PRN Reason: Nasal Congestion Sodium Chloride (Flush - Normal Saline) 10 ml IVF Q12HR [facility] Last Admin: 10/22/18 10:28 Dose: Not Given Sodium Chloride (Flush - Normal Saline) 10 ml IVF PRN PRN PRN Reason: Saline Flush Throat Lozenges (Cepastat Lozenges) 1 nasrin PO Q2H PRN PRN Reason: Sore Throat Zolpidem Tartrate (Ambien) 5 mg PO HSPRN PRN PRN Reason: Insomnia
[2018-10-22] MEDS: K-Phos Neutral 250 MG TAB PO SCH ×3 (13:10→21:08)
--- NOTE | 2018-10-22 19:41 | PRG ---
DATE OF SERVICE: 10/22/2018 SUBJECTIVE: Ms. Barrera, the nurses reports had some mucousy discharge from her rectum today. No bleeding and it is not certainly C diff. OBJECTIVE: VITAL SIGNS: T-max 99.2, temperature current 98.5, and blood pressure 103/55. GENERAL: She is frail, cachectic, and thin. ABDOMEN: Tender in left lower quadrant. There is no rebound. There is no guarding. LABORATORY DATA: Hemoglobin is 7.9 and platelet count 369. She has a sodium 137, potassium 3, chloride is 114, bicarb 14, and anion gap was 9. Iron and TIBC are low with high ferritin consistent in anemia of chronic disease. Liver function tests normal. Pathology of the stomach showed no H. pylori. Polyps were benign. The ulcers in the area showed active colitis without any evidence of acute inflammation. Viral stains are pending. ASSESSMENT: 1. Severe colitis, likely ischemic. 2. Bladder cancer. 3. Severe anemia, likely related to chronic disease, multifactorial, stable. 4. She reports protein calorie malnutrition. Albumin is 3.4. RECOMMENDATIONS: 1. Await viral biopsies on the colon. 2. Transfuse as needed. 3. We will get stool studies if the patient has continued diarrhea. We will follow along with you. Job ID: [id number]
[2018-10-22] MEDS ORDERED: Magnesium Oxide 400 MG TAB PO SCH (21:00)
[2018-10-22] MEDS: Rosuvastatin 10 MG TAB PO SCH (21:09)
[2018-10-23 04:27] LABS: #Eosinphils 0.1 thou/uL (0.0-0.7); #Lymphocytes 1.5 thou/uL (1.20-3.40); #Monocytes 0.9 thou/uL (0.11-0.59); #Neutrophils 6.7 thou/uL (1.40-6.50); %Basophils 0.3 % (0.0-1.0); %Eosinophils 1.5 % (0.0-10.0); %Lymphocytes 16.2 % (21.0-51.0); Hemoglobin 7.9 g/dL (12.0-16.0); Mean Corpuscular HGB CONC 32.7 g/dL (32.0-36.0); Mean Corpuscular Hemoglobin 29.2 pg (27.0-31.0); Mean Corpuscular Volume 89.3 fL (78.0-98.0); Mean Platelet Volume 6.9 fL (7.4-10.4); Platelet Count 385 thou/uL (130-400); RBC Distribution Width 14.3 % (11.5-14.5); Red Blood Cell (RBC) Count 2.71 mill/uL (4.20-5.40); White Blood Cell (WBC) Count 9.3 thou/uL (4.8-10.8)
[2018-10-23 05:01] LABS: Anion Gap 10 mmol/L (10-20); BUN (Urea Nitrogen) 11 mg/dL (9.8-20.1); Calc. Creatinine Clearance 36 mL/min (70-130); Calcium 7.7 mg/dL (7.8-10.44); Carbon Dioxide 16 mmol/L (23-31); Chloride 116 mmol/L (98-107); Estimated GFR-MDRD 83; Glucose 77 mg/dL (83-110); Magnesium 1.1 mg/dL (1.6-2.6); Phosphorus 4.7 mg/dL (2.3-4.7); Potassium 2.9 mmol/L (3.5-5.1); Sodium 139 mmol/L (136-145)
[2018-10-23] MEDS ORDERED: Potassium Chloride 20 MEQ TAB PO SCH (05:15)
[2018-10-23] MEDS: Amlodipine 5 MG TAB PO SCH (08:18)
[2018-10-23] MEDS: K-Phos Neutral 250 MG TAB PO SCH ×4 (08:18→20:13)
[2018-10-23] MEDS: Cefdinir 300 MG CAP PO SCH ×2 (08:19→20:12)
[2018-10-23] MEDS: Magnesium Oxide 400 MG TAB PO SCH ×2 (08:20→20:12)
[2018-10-23] MEDS: Folic Acid 1 MG TAB PO SCH (08:20)
[2018-10-23] MEDS: Metoprolol Tartrate 25 MG TAB PO SCH ×2 (08:21→20:13)
[2018-10-23] MEDS: Cyanocobalamin (Vitamin B-12) 1,000 MCG TAB PO SCH (08:23)
[2018-10-23] MEDS: metroNIDAZOLE 250 MG TAB PO SCH ×3 (08:24→20:12)
[2018-10-23] MEDS: Multivitamin W/ Minerals 1 TAB PO SCH (08:24)
[2018-10-23] MEDS: Potassium Chloride 20 MEQ TAB PO SCH ×3 (08:26→20:13)
--- NOTE | 2018-10-23 10:52 | PDOC.PN ---
- Subjective Encounter Start Date: 10/23/18 Encounter Start Time: 10:45 Patient seen and examined. No new complaints. No overnight events - Objective Resuscitation Status - Order Detail: 10/19/18 22:00 Resuscitation Status Routine Resuscitation Status: FULL: Full Resuscitation MAR Reviewed: Yes Vital Signs & Weight: Vital Signs (12 hours) Temp Pulse Resp BP Pulse Ox 10/23/18 08:18 66 10/23/18 08:00 98.7 F 66 12 114/59 L 100 10/23/18 03:31 98.7 F 10/23/18 00:00 99.0 F Weight Admit Weight 81 lb 4.8 oz Weight 81 lb 4.8 oz I&O: 10/22/18 10/23/18 10/24/18 06:59 06:59 06:59 Intake Total 1160 Output Total 800 650 Balance -800 510 Result Diagrams: 10/23/18 04:00 10/23/18 04:00 Phys Exam - Physical Examination Constitutional: NAD cachectic HEENT: moist MMs, sclera anicteric Neck: no JVD, supple Respiratory: no wheezing, no rales, no rhonchi Cardiovascular: RRR, no significant murmur, no rub Gastrointestinal: soft, non-tender, no distention, positive bowel sounds small+ Musculoskeletal: no edema, pulses present Neurological: non-focal, moves all 4 limbs Lymphatic: no nodes Psychiatric: normal affect Skin: no rash, normal turgor Dx/Plan (1) Acute on chronic blood loss anemia Code(s): D62 - ACUTE POSTHEMORRHAGIC ANEMIA Status: Acute (2) Cachexia Code(s): R64 - CACHEXIA Status: Acute Comment: with severe protein calory malnutrition (3) Colitis Code(s): K52.9 - NONINFECTIVE GASTROENTERITIS AND COLITIS, UNSPECIFIED Status : Acute Comment: sigmoid colitis (4) Colon polyps Code(s): K63.5 - POLYP OF COLON Status: Acute Comment: s/p snare polypectomy (5) Rectal bleeding Code(s): K62.5 - HEMORRHAGE OF ANUS AND RECTUM Status: Acute (6) Bladder cancer Status: Chronic Comment: s/p TURP 03/20/18 (7) CAD (coronary artery disease) Code(s): I25.10 - ATHSCL HEART DISEASE OF [place] CORONARY ARTERY W/O ANG PCTRS Status: Chronic (8) Carotid stenosis, left Code(s): I65.22 - OCCLUSION AND STENOSIS OF LEFT CAROTID ARTERY Status: Chronic Comment: s/p R CEA (9) Chronic systolic CHF (congestive heart failure) Code(s): I50.22 - CHRONIC SYSTOLIC (CONGESTIVE) HEART FAILURE Status: Chronic Comment: ACC/AHA stage C (10) Diverticulosis Code(s): K57.90 - DVRTCLOS OF INTEST, PART UNSP, W/O PERF OR ABSCESS W/O BLEED Status: Chronic (11) H/O TIA (transient ischemic attack) and stroke Code(s): Z86.73 - PRSNL HX OF TIA (TIA), AND CEREB INFRC W/O RESID DEFICITS Status: Chronic (12) HTN (hypertension) Code(s): I10 - ESSENTIAL (PRIMARY) HYPERTENSION Status: Chronic - Plan cont current plan of care, continue antibiotics, social director * replace electrolytes orally * medication reviewed as below * symptomatic treatment * discharge soon. 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 negative: fever, chills, sweats, malaise, other ENT: negative: Ear Pain, Ear Discharge, Nose Pain, Nose Discharge, Nose Congestion, Mouth Pain, Mouth Swelling, Throat Pain, Throat Swelling, Other Respiratory: negative: Cough, Dry, Shortness of Breath, Hemoptysis, SOB with Excertion, Pleuritic Pain, Sputum, Wheezing Cardiovascular: negative: chest pain, palpitations, orthopnea, paroxysmal nocturnal dyspnea, edema, light headedness, other Gastrointestinal: negative: Nausea, Vomiting, Abdominal Pain, Diarrhea, Constipation, Melena, Hematochezia, Other Genitourinary: negative: Dysuria, Frequency, Incontinence, Hematuria, Retention , Other Musculoskeletal: negative: Neck Pain, Shoulder Pain, Arm Pain, Back Pain, Hand Pain, Leg Pain, Foot Pain, Other - Medications/Allergies Allergies/Adverse Reactions: Allergies Allergy/AdvReac Type Severity Reaction Status Date / Time JEANNINE Inhibitors Allergy Verified 10/19/18 16:02 hydrocodone Allergy Verified 10/19/18 16:02 Medications: Current Medications Acetaminophen (Tylenol) 650 mg PO Q6H PRN PRN Reason: Fever>101/(Mi/Mod/Sev) Pain Last Admin: 10/22/18 13:10 Dose: 650 mg Amlodipine Besylate (Norvasc) 5 mg PO DAILY REPLACED BY [facility] Last Admin: 10/23/18 08:18 Dose: Not Given Artificial Tears (Liquitears 15ml Bottle) 2 drop EA EYE PRN PRN PRN Reason: Dry Eyes Bisacodyl (Dulcolax) 10 mg DC DAILYPRN PRN PRN Reason: Constipation Calcium Carbonate (Tums) 1,000 mg PO Q4H PRN PRN Reason: Heartburn or Indigestion Cefdinir (Omnicef) 300 mg PO BID REPLACED BY [facility] Last Admin: 10/23/18 08:19 Dose: 300 mg Cyanocobalamin (Vitamin B-12) 1,000 mcg PO DAILY REPLACED BY [facility] Last Admin: 10/23/18 08:23 Dose: Not Given Folic Acid (Folvite) 1 mg PO DAILY REPLACED BY [facility] Last Admin: 10/23/18 08:20 Dose: 1 mg Guaifenesin (Robitussin Sf) 200 mg PO Q4H PRN PRN Reason: Cough Hydralazine HCl (Apresoline) 10 mg SLOW IVP Q4H PRN PRN Reason: SBP > 180 and HR < 70 Iron/Minerals/Multivitamins (Theragran M) 1 tab PO DAILY REPLACED BY [facility] Last Admin: 10/23/18 08:24 Dose: Not Given Loperamide HCl (Imodium) 2 mg PO PRN PRN PRN Reason: Diarrhea/Loose Stools Loratadine (Claritin) 10 mg PO DAILYPRN PRN PRN Reason: Sinus Symptoms Magnesium Oxide (Magnesium Oxide) 800 mg PO BID REPLACED BY [facility] Last Admin: 10/23/18 08:20 Dose: 800 mg Metoprolol Tartrate (Lopressor) 25 mg PO BID REPLACED BY [facility] Last Admin: 10/23/18 08:21 Dose: Not Given Metronidazole (Flagyl) 250 mg PO TID REPLACED BY [facility] Last Admin: 10/23/18 08:24 Dose: 250 mg Nitroglycerin (Nitrostat) 0.4 mg SL PRN PRN PRN Reason: Chest Pain Ondansetron HCl (Zofran Odt) 4 mg PO Q6H PRN PRN Reason: Nausea/Vomiting Ondansetron HCl (Zofran) 4 mg IVP Q6H PRN PRN Reason: Nausea/Vomiting Pantoprazole Sodium (Protonix) 40 mg PO DAILY REPLACED BY [facility] Last Admin: 06/07/19 08:25 Dose: Not Given Phosphorus (Kphos Neutral) 500 mg PO QID-WM REPLACED BY [facility] Last Admin: 10/23/18 08:18 Dose: 500 mg Potassium Chloride (K-Dur) 40 meq PO TID REPLACED BY [facility] Last Admin: 10/23/18 08:26 Dose: Not Given Rosuvastatin Calcium (Crestor) 10 mg PO HS REPLACED BY [facility] Last Admin: 10/22/18 21:09 Dose: 10 mg Senna/Docusate Sodium (Senokot S) 2 tab PO BID PRN PRN Reason: Constipation Sodium Chloride ([place] Nasal [place] 0.65%) 0 ml EA NARE QIDPRN PRN PRN Reason: Nasal Congestion Sodium Chloride (Flush - Normal Saline) 10 ml IVF Q12HR REPLACED BY [facility] Last Admin: 10/23/18 08:26 Dose: Not Given Sodium Chloride (Flush - Normal Saline) 10 ml IVF PRN PRN PRN Reason: Saline Flush Throat Lozenges (Cepastat Lozenges) 1 nasrin PO Q2H PRN PRN Reason: Sore Throat Zolpidem Tartrate (Ambien) 5 mg PO HSPRN PRN PRN Reason: Insomnia
[2018-10-23] MEDS: Rosuvastatin 10 MG TAB PO SCH (20:12)
[2018-10-23] MEDS: Loperamide HCl 2 MG CAP PO PRN (20:12)
--- NOTE | 2018-10-23 20:30 | PRG ---
DATE OF SERVICE: 10/23/2018 SUBJECTIVE: Ms. Barrera still states she is having some diarrhea. She denies any abdominal pain. She wonders when she is going to get her stent taken out, has a urology stent apparently related to her bladder cancer. She is having no bleeding or fever. She is eating about 3 to 4 Ensures a day. MEDICATIONS: 1. Norvasc. 2. Dulcolax. 3. Tums. 4. Omnicef. 5. B12. 6. Folvite. 7. Multivitamin. 8. Imodium. 9. Flagyl. 10. Zofran. 11. Ambien. OBJECTIVE: VITAL SIGNS: T-max 100.3 on 10/22, 101.1 on 10/21, and today, she has been in T-max of 99.2. Pulse 56, respirations 18, and blood pressure 114/59. GENERAL: She is cachectic and thin. She is in no distress. LUNGS: Clear. HEART: Regular rate and rhythm. No murmurs. ABDOMEN: Soft and nontender. LABORATORY DATA: White count 9.3, hemoglobin 7.9, platelet count 385. Potassium 2.9, sodium 139, BUN and creatinine are 11 and 0.8, magnesium was 1.1, phosphorus 4.7, and calcium 7.7. ASSESSMENT: 1. The patient still has some diarrhea. This all appears to be ischemic colitis or a real dehydration. The possibility of infectious etiology is to be considered. She has had previous negative HIV stains, her HSV were negative. Stains for CMV were unclear with some stippling, with the pathologist felt this was artifactual. 2. Gastrointestinal bleeding, resolved. RECOMMENDATIONS: Continued electrolyte replacement has begun. Check serum CMV, DNA. We will consider RPR as well for her severe cachexia for unknown reasons other than her bladder cancer. Job ID: [id number]
[2018-10-24] MEDS: Potassium Chloride 20 MEQ TAB PO SCH ×3 (10:02→20:05)
[2018-10-24] MEDS: Cefdinir 300 MG CAP PO SCH ×2 (10:03→20:05)
[2018-10-24] MEDS: Multivitamin W/ Minerals 1 TAB PO SCH (10:03)
[2018-10-24] MEDS: metroNIDAZOLE 250 MG TAB PO SCH ×3 (10:03→20:05)
[2018-10-24] MEDS: Folic Acid 1 MG TAB PO SCH (10:04)
[2018-10-24] MEDS: Magnesium Oxide 400 MG TAB PO SCH ×2 (10:04→20:05)
[2018-10-24] MEDS: K-Phos Neutral 250 MG TAB PO SCH ×4 (10:04→20:05)
[2018-10-24] MEDS: Amlodipine 5 MG TAB PO SCH (10:04)
[2018-10-24] MEDS: Cyanocobalamin (Vitamin B-12) 1,000 MCG TAB PO SCH (10:04)
[2018-10-24] MEDS: Metoprolol Tartrate 25 MG TAB PO SCH (10:04)
--- NOTE | 2018-10-24 10:45 | PDOC.PN ---
- Subjective Encounter Start Date: 10/24/18 Encounter Start Time: 07:00 this morning pt refused to draw blood, she wants to go home, she had 2 diarrhoea last night and 1 this morning - Objective Resuscitation Status - Order Detail: 10/19/18 22:00 Resuscitation Status Routine Resuscitation Status: FULL: Full Resuscitation MAR Reviewed: Yes Vital Signs & Weight: Vital Signs (12 hours) Temp Pulse Resp BP Pulse Ox 10/24/18 10:04 78 10/24/18 08:00 98.4 F 78 16 85/54 L 98 Weight Admit Weight 81 lb 4.8 oz Weight 81 lb 4.8 oz I&O: 10/23/18 10/24/18 10/25/18 06:59 06:59 06:59 Intake Total 1160 840 Output Total 650 575 Balance 510 265 Result Diagrams: 10/23/18 04:00 10/23/18 04:00 Phys Exam - Physical Examination Constitutional: NAD cachectic HEENT: PERRLA, sclera anicteric Neck: no JVD, supple Respiratory: no wheezing, no rales, no rhonchi Cardiovascular: RRR, no significant murmur, no rub Gastrointestinal: soft, non-tender, no distention, positive bowel sounds small+ Musculoskeletal: no edema, pulses present Neurological: moves all 4 limbs Lymphatic: no nodes Psychiatric: normal affect Skin: no rash, normal turgor Dx/Plan (1) Acute on chronic blood loss anemia Code(s): D62 - ACUTE POSTHEMORRHAGIC ANEMIA Status: Acute (2) Cachexia Code(s): R64 - CACHEXIA Status: Acute Comment: with severe protein calory malnutrition (3) Colitis Code(s): K52.9 - NONINFECTIVE GASTROENTERITIS AND COLITIS, UNSPECIFIED Status : Acute Comment: sigmoid colitis (4) Colon polyps Code(s): K63.5 - POLYP OF COLON Status: Acute Comment: s/p snare polypectomy (5) Rectal bleeding Code(s): K62.5 - HEMORRHAGE OF ANUS AND RECTUM Status: Acute (6) Bladder cancer Status: Chronic Comment: s/p TURP 03/20/18 (7) CAD (coronary artery disease) Code(s): I25.10 - ATHSCL HEART DISEASE OF [place] CORONARY ARTERY W/O ANG PCTRS Status: Chronic (8) Carotid stenosis, left Code(s): I65.22 - OCCLUSION AND STENOSIS OF LEFT CAROTID ARTERY Status: Chronic Comment: s/p R CEA (9) Chronic systolic CHF (congestive heart failure) Code(s): I50.22 - CHRONIC SYSTOLIC (CONGESTIVE) HEART FAILURE Status: Chronic Comment: ACC/AHA stage C (10) Diverticulosis Code(s): K57.90 - DVRTCLOS OF INTEST, PART UNSP, W/O PERF OR ABSCESS W/O BLEED Status: Chronic (11) H/O TIA (transient ischemic attack) and stroke Code(s): Z86.73 - PRSNL HX OF TIA (TIA), AND CEREB INFRC W/O RESID DEFICITS Status: Chronic (12) HTN (hypertension) Code(s): I10 - ESSENTIAL (PRIMARY) HYPERTENSION Status: Chronic - Plan cont current plan of care, plan discussed w/ family, continue antibiotics, manager social * I spoke with son about pt's uncooperative with care, he does not want to go her without correction, he will explain to her about need for IV access and blood testing and taking medication * her prognosis is poor, she is always at risk for readmission * medication reviewed as below * symptomatic treatment * continue to replace electrolytes orally. Review of Systems - Review of Systems Constitutional: weakness. negative: fever, chills, sweats, malaise, other ENT: negative: Ear Pain, Ear Discharge, Nose Pain, Nose Discharge, Nose Congestion, Mouth Pain, Mouth Swelling, Throat Pain, Throat Swelling, Other Respiratory: negative: Cough, Dry, Shortness of Breath, Hemoptysis, SOB with Excertion, Pleuritic Pain, Sputum, Wheezing Cardiovascular: negative: chest pain, palpitations, orthopnea, paroxysmal nocturnal dyspnea, edema, light headedness, other Gastrointestinal: Diarrhea. negative: Nausea, Vomiting, Abdominal Pain, Constipation, Melena, Hematochezia, Other Genitourinary: negative: Dysuria, Frequency, Incontinence, Hematuria, Retention , Other Musculoskeletal: negative: Neck Pain, Shoulder Pain, Arm Pain, Back Pain, Hand Pain, Leg Pain, Foot Pain, Other - Medications/Allergies Allergies/Adverse Reactions: Allergies Allergy/AdvReac Type Severity Reaction Status Date / Time JEANNINE Inhibitors Allergy Verified 10/19/18 16:02 hydrocodone Allergy Verified 10/19/18 16:02 Medications: Current Medications Acetaminophen (Tylenol) 650 mg PO Q6H PRN PRN Reason: Fever>101/(Mi/Mod/Sev) Pain Last Admin: 10/22/18 13:10 Dose: 650 mg Artificial Tears (Liquitears 15ml Bottle) 2 drop EA EYE PRN PRN PRN Reason: Dry Eyes Bisacodyl (Dulcolax) 10 mg SC DAILYPRN PRN PRN Reason: Constipation Calcium Carbonate (Tums) 1,000 mg PO Q4H PRN PRN Reason: Heartburn or Indigestion Cefdinir (Omnicef) 300 mg PO BID [facility] Last Admin: 10/24/18 10:03 Dose: 300 mg Cyanocobalamin (Vitamin B-12) 1,000 mcg PO DAILY [facility] Last Admin: 10/24/18 10:04 Dose: Not Given Folic Acid (Folvite) 1 mg PO DAILY [facility] Last Admin: 10/24/18 10:04 Dose: Not Given Guaifenesin (Robitussin Sf) 200 mg PO Q4H PRN PRN Reason: Cough Hydralazine HCl (Apresoline) 10 mg SLOW IVP Q4H PRN PRN Reason: SBP > 180 and HR < 70 Iron/Minerals/Multivitamins (Theragran M) 1 tab PO DAILY [facility] Last Admin: 10/24/18 10:03 Dose: Not Given Loperamide HCl (Imodium) 2 mg PO PRN PRN PRN Reason: Diarrhea/Loose Stools Last Admin: 10/23/18 20:12 Dose: 2 mg Loratadine (Claritin) 10 mg PO DAILYPRN PRN PRN Reason: Sinus Symptoms Magnesium Oxide (Magnesium Oxide) 800 mg PO BID [facility] Last Admin: 10/24/18 10:04 Dose: Not Given Metronidazole (Flagyl) 250 mg PO TID [facility] Last Admin: 10/24/18 10:03 Dose: 250 mg Nitroglycerin (Nitrostat) 0.4 mg SL PRN PRN PRN Reason: Chest Pain Ondansetron HCl (Zofran Odt) 4 mg PO Q6H PRN PRN Reason: Nausea/Vomiting Ondansetron HCl (Zofran) 4 mg IVP Q6H PRN PRN Reason: Nausea/Vomiting Pantoprazole Sodium (Protonix) 40 mg PO DAILY [facility] Last Admin: 10/24/18 10:03 Dose: 40 mg Phosphorus (Kphos Neutral) 500 mg PO QID-WM [facility] Last Admin: 10/24/18 10:04 Dose: Not Given Potassium Chloride (K-Dur) 40 meq PO TID [facility] Last Admin: 10/24/18 10:02 Dose: 40 meq Rosuvastatin Calcium (Crestor) 10 mg PO HS [facility] Last Admin: 10/23/18 20:12 Dose: 10 mg Senna/Docusate Sodium (Senokot S) 2 tab PO BID PRN PRN Reason: Constipation Sodium Chloride ([place] Nasal [place] 0.65%) 0 ml EA NARE QIDPRN PRN PRN Reason: Nasal Congestion Sodium Chloride (Flush - Normal Saline) 10 ml IVF Q12HR [facility] Last Admin: 10/24/18 10:05 Dose: Not Given Sodium Chloride (Flush - Normal Saline) 10 ml IVF PRN PRN PRN Reason: Saline Flush Throat Lozenges (Cepastat Lozenges) 1 nasrin PO Q2H PRN PRN Reason: Sore Throat Zolpidem Tartrate (Ambien) 5 mg PO HSPRN PRN PRN Reason: Insomnia
--- NOTE | 2018-10-24 13:22 | PRG ---
DATE OF SERVICE: 10/24/2018 SUBJECTIVE: This is a 73-year-old female with bladder resection for bladder carcinoma. She has had diarrhea and also mild hematochezia. She had EGD and colonoscopy by Dr. Angelo Camacho. The colonoscopy showed rectal ulceration and also sigmoid ulceration. It was felt it could be ischemic or possibly infectious. She is not having any significant bleeding. She has had mild bleeding off and on. She had only 2 stools today. She has no abdominal pain. No nausea or vomiting. The patient interested on going home. However, her serum chemistry shows potassium to be around 2.9 yesterday. She refused to have blood drawn today. The patient offers no complaints except stating that she wants to go home. Although she is not eating very much food, she is taking Ensure at least 4 cans a day. OBJECTIVE: VITAL SIGNS: Afebrile. Pulse is 80, blood pressure 115/84. GENERAL: She is a very fragile looking female, appears comfortable. CARDIOVASCULAR SYSTEM: Within normal limits. LUNGS: Within normal limits. GI: Abdomen is soft. Abdomen is nontender. No organomegaly or masses. RECOMMENDATIONS: 1. Increase p.o. intake. 2. Potassium supplement. 3. If the potassium level came back to normal, I believe she can probably go home. Job ID: [id number]
--- NOTE | 2018-10-24 13:34 | PRG ---
DATE OF SERVICE: 10/24/2018 SUBJECTIVE: She denies any complaints. She is feeling better than when she was admitted. OBJECTIVE: VITAL SIGNS: Temperature 98.4, blood pressure 115/84, pulse 80, respiratory rate 18. ABDOMEN: Soft, nontender. No palpable masses. LABORATORY DATA: Hemoglobin most recent 7.9 with hematocrit 24.2 (no climate change risk assessor the last 3 days). Urine is clear and draining readily. Núñez catheter secured in good position. IMPRESSION: Ms. Barrera is status post a cystectomy with neobladder formation in [place] by Dr. Delta Mejia. She has been recently diagnosed with an anastomotic leak during admission for GI bleed. The Núñez catheter has been left in place and is draining well. RECOMMENDATION: No further recommendations at this time. She will require followup cystogram before catheter removal and this will be arranged by Dr. Johnston. Job ID: [id number]
[2018-10-24 14:59] LABS: Anion Gap 12 mmol/L (10-20); BUN (Urea Nitrogen) 14 mg/dL (9.8-20.1); Calc. Creatinine Clearance 38 mL/min (70-130); Calcium 8.2 mg/dL (7.8-10.44); Carbon Dioxide 15 mmol/L (23-31); Chloride 116 mmol/L (98-107); Estimated GFR-MDRD 89; Glucose 132 mg/dL (83-110); Magnesium 1.3 mg/dL (1.6-2.6); Potassium 3.7 mmol/L (3.5-5.1); Sodium 139 mmol/L (136-145)
[2018-10-24 15:23] LABS: Syphilis Antibody Nonreactive (Nonreactive); Syphilis Antibody Index 0.63 S/CO (<1.00 Non-Reactive)
[2018-10-24] MEDS: Rosuvastatin 10 MG TAB PO SCH (20:05)
[2018-10-24] MEDS: Loperamide HCl 2 MG CAP PO PRN (23:36)
[2018-10-25 07:48] VITALS: BP 95/50; TEMP 98.2
[2018-10-25] MEDS: Cefdinir 300 MG CAP PO SCH (08:23)
[2018-10-25] MEDS: Magnesium Oxide 400 MG TAB PO SCH (08:23)
[2018-10-25] MEDS: Cyanocobalamin (Vitamin B-12) 1,000 MCG TAB PO SCH (08:23)
[2018-10-25] MEDS: Folic Acid 1 MG TAB PO SCH (08:23)
[2018-10-25] MEDS: metroNIDAZOLE 250 MG TAB PO SCH (08:23)
[2018-10-25] MEDS: K-Phos Neutral 250 MG TAB PO SCH (08:23)
[2018-10-25] MEDS: Potassium Chloride 20 MEQ TAB PO SCH (08:24)
[2018-10-25] MEDS: Multivitamin W/ Minerals 1 TAB PO SCH (08:24)
--- NOTE | 2018-10-25 10:53 | DIS ---
DATE OF ADMISSION: 10/19/2018 DATE OF DISCHARGE: 10/25/2018 PRIMARY CARE PHYSICIAN: Dr. Luna Esposito. DISCHARGE DISPOSITION: Home with home health. PRIMARY DISCHARGE DIAGNOSES: 1. Lower GI bleed due to ischemic colitis. 2. Ischemic colitis. 3. [id number] blood loss anemia. 4. Abnormal blood electrolytes. SECONDARY DISCHARGE DIAGNOSES: 1. History of hypertension. 2. Transient ischemic attack. 3. Diverticulosis. 4. Chronic systolic heart failure. 5. Carotid stenosis. 6. Coronary artery disease. 7. Bladder cancer. 8. Chronic indwelling Núñez catheter. 9. Colon polyp. 10. Cachexia. 11. Severe protein-calorie malnutrition. PRIMARY PROCEDURE/OPERATION: The patient underwent upper and lower endoscopy. The patient is found with ischemic colitis. RADIOLOGICAL INVESTIGATION: Abdomen and pelvis CT scan. SIGNIFICANT LABORATORY DATA: WBC 9.3, hemoglobin 7.9, platelets 385. Sodium 139, potassium 3.7, creatinine 0.77. Urinalysis unremarkable, though suggestive of UTI, but has chronic indwelling catheter. Syphilis, negative. C diff, negative. Blood culture, negative. DISCHARGE MEDICATIONS: 1. Plavix 75 mg p.o. daily. 2. Pepcid 20 mg p.o. at bedtime. 3. Ferrous sulfate 325 mg p.o. daily. 4. Metoprolol 25 mg p.o. b.i.d. 5. Crestor 10 mg p.o. at bedtime. 6. Omnicef 300 mg p.o. b.i.d. for 5 days. 7. Vitamin B12 of 1000 mcg p.o. daily. 8. Folic acid 1 mg p.o. daily. 9. Magnesium oxide 400 mg p.o. b.i.d. 10. Flagyl 250 mg t.i.d. for 5 days. 11. Protonix 40 mg p.o. daily. 12. Potassium chloride 20 mEq p.o. b.i.d. CONTRAINDICATION: The patient is not on JEANNINE inhibitor because of allergy. CODE STATUS: Full code. INPATIENT SHORT HAUL DRIVER: Therapy Coordinator team was following while in hospital. Dr. Johnston was following while in hospital. TEST RESULTS PENDING ON DISCHARGE: None. ALLERGIES: JEANNINE INHIBITOR AND HYDROCODONE. DISCHARGE PLAN: Posthospital, the patient will follow up with primary care physician in 1 week. HOSPITAL COURSE: A 73-year-old female with above-mentioned medical problem, who was admitted by Dr. Meza. Please see his H and P for further details. The patient was having lower GI bleed with rectal bleeding. She was also having diarrhea. She was having [id number] blood loss anemia secondary to GI bleeding. Gastroenterology Team was consulted on admission. They did upper and lower endoscopy and found with ischemic colitis. Because of ongoing diarrhea, the patient was having abnormal electrolytes, that was replaced while in hospital. We noted that during this hospital course, the patient was noncompliant with the treatment plan. She was not allowing us to do IV access and that is why we tried to correct everything with p.o. medication, even she was not allowing us to do blood draw frequently while in hospital. She has severe protein-calorie malnutrition and while in hospital, we provided nutritional support. We checked stool for C diff, that was negative. We empirically treated her with Omnicef and Flagyl while in hospital with improvement. She had 1 time fever while in hospital, but after starting antibiotic therapy, she did not have any further fever. Her culture remained negative. She is hemodynamically stable, but blood pressure is running little bit low and that is why we discontinued amlodipine. We resumed Plavix upon discharge. Rest of medication is continued as per previous. The patient is euvolemic. Necessary patient education about diet was discussed. Plan of care discussed with the family member. Urology was also following for her chronic indwelling Núñez catheter, but they recommended to leave Núñez catheter in on discharge and she will follow up with them as an outpatient basis. This patient is at high risk for recurrent admission. I have seen and examined the patient at bedside today. PHYSICAL EXAMINATION: VITAL SIGNS: Currently temperature 98.2, pulse 71, respiratory rate 16, saturation 100% on room air, blood pressure 95/50. Weight 81 pounds. GENERAL: The patient is currently alert, awake. No obvious acute distress. HEENT: Head; normocephalic, atraumatic. Eyes; pupils round, reactive to light. Extraocular muscle intact. ENT, oropharynx within normal limits. LUNGS: Clear to auscultation without any rhonchi or rales. CARDIAC: S1, S2. Regular without any murmur. ABDOMEN: Soft and benign. EXTREMITIES: No edema. NEUROLOGIC: Nonfocal examination. Job ID: [id number]
[2018-10-27 14:13] LABS: CMV DNA-PCR Test Positive < 200 IU/mL (Negative)
== END 2018-10-25 11:13 | disposition home or self-care (01) | DRG 377 ==
LOC: ERS 09:30 → ONC 13:18
PROVIDERS: ADMIT Internal Medicine; ATTEND Internal Medicine
PROC: 0DB68ZX Excision of Stomach, Via Natural or Artificial Opening Endoscopic, Diagnostic (ICD-10-PCS; principal; 2018-10-19)
PROC: 0DBK8ZZ Excision of Ascending Colon, Via Natural or Artificial Opening Endoscopic (ICD-10-PCS; 2018-10-19)
PROC: 0DBL8ZZ Excision of Transverse Colon, Via Natural or Artificial Opening Endoscopic (ICD-10-PCS; 2018-10-19)
DX: K92.2 Gastrointestinal hemorrhage, unspecified (principal); E43 Unspecified severe protein-calorie malnutrition; K51.90 Ulcerative colitis, unspecified, without complications; D62 Acute posthemorrhagic anemia; I50.22 Chronic systolic (congestive) heart failure; Z68.1 Body mass index [BMI] 19.9 or less, adult; R64 Cachexia; K55.9 Vascular disorder of intestine, unspecified; K29.70 Gastritis, unspecified, without bleeding; K57.90 Diverticulosis of intestine, part unspecified, without perforation or abscess without bleeding; E11.9 Type 2 diabetes mellitus without complications; J44.9 Chronic obstructive pulmonary disease, unspecified; E78.5 Hyperlipidemia, unspecified; I25.10 Atherosclerotic heart disease of native coronary artery without angina pectoris; Z86.73 Personal history of transient ischemic attack (TIA), and cerebral infarction without residual deficits; I11.0 Hypertensive heart disease with heart failure; I65.22 Occlusion and stenosis of left carotid artery; K63.5 Polyp of colon; C67.9 Malignant neoplasm of bladder, unspecified
CPT/HCPCS: 36415; 74177; 80048; 80053; 81003; 81015; 82274; 82728; 83540; 83550; 83605; 83690; 83735; 84100; 85025; 86780; 86850; 86870; 86900; 86901; 86922; 87040; 87324; 87449; 87497; 88305; 88312; 88341; 88342; 96360; 96361; C9113; Q9966